=== PATIENT | male | born 1965 | race Caucasian/White ===

== ENCOUNTER → 2019-12-22 15:11 | Outpatient (CLI) | payer OTHER, SELFPAY ==
[2019-12-22 15:28] LABS: Bacteria Urine None Seen
[2019-12-22 16:55] LABS: Add Manual Diff / Slide Review NO; Basophils Absolute Auto 0 /uL (0-100); Basophils Percent Auto 0.2 % (0-2); Eosinophils Absolute Auto 0 /uL (0-450); Eosinophils Percent Auto 0.4 % (2-4); Hemoglobin 15.6 g/dL (13.5-17.5); Lymphocytes Absolute Auto 1000 /uL (1100-4500); Lymphocytes Percent Auto 9.3 % (25-40); Mean Corpuscular HGB Conc 34.7 % (30-36); Mean Corpuscular Hemoglobin 30.5 PG (26-34); Monocytes Absolute Auto 1000 /uL (0-900); Monocytes Percent Auto 9.4 % (3-14); Neutrophils Absolute Auto 8300 /uL (1500-7000); Neutrophils Percent Auto 80.7 % (50-75); Platelet Count 225 X10^3/uL (150-400); Red Blood Cell Count 5.12 X10^6/uL (4.5-5.9); Red Cell Distribution Width 13.3 % (11.6-14.8); White Blood Cell Count 10.3 X10^3/uL (4.5-11.0)
[2019-12-22 16:56] LABS: Appearance Urine UA CLEAR; Bilirubin Urine UA 1+ (NEGATIVE); Color Urine UA YELLOW; Glucose Urine UA NEGATIVE (Negative); Ketones Urine UA 2+ (NEGATIVE); Leukocyte Esterase Urine UA NEGATIVE (NEGATIVE); Nitrite Urine UA NEGATIVE (Negative); Occult Blood Urine UA TRACE-LYSED (Negative); Protein Urine UA NEGATIVE (Negative); Urobilinogen Urine UA 0.2 E.U./dL (0.2); pH Urine UA 5.5 (4.5-8.0)
[2019-12-22 18:20] LABS: Culture Indicated Urine Cult Not Indicated; RBC Urine 0-1/HPF (0-5/HPF); WBC Urine 0-1/HPF (0-5/HPF)
[2019-12-22 18:29] LABS: HEMOLYSIS < 15 (0-50)
[2019-12-22 18:42] LABS: BUN Creatinine Ratio 11.8 (6-22); Blood Urea Nitrogen 18 mg/dL (9-20); Calcium 9.7 mg/dL (8.4-10.2); Carbon Dioxide 27 mmol/L (22-32); Chloride 99 mmol/L (98-107); Estimated Glomerular Filt Rate 47.8 mL/min (>60); Glucose 81 mg/dL (70-100); Sodium 137 mmol/L (137-145)
[2019-12-22 19:48] LABS: Prostate Specific Antigen Scrn 1.99 ng/mL (0.1-4.0)
[2019-12-22 20:16] LABS: Ictotest Urine Negative (Negative)
== END ==
PROVIDERS: Family Provider Family Medicine; PCP Family Medicine; Referring Provider Family Medicine; Visit Provider Family Medicine
DX: R10.9 Unspecified abdominal pain (principal)
CPT/HCPCS: 36415; 80048; 81001; 85025; G0103

== ENCOUNTER → 2019-12-29 16:46 | Outpatient (CLI) | payer OTHER, SELFPAY ==
[2019-12-29 18:34] LABS: BUN Creatinine Ratio 19.8 (6-22); Blood Urea Nitrogen 21 mg/dL (9-20); Calcium 9.1 mg/dL (8.4-10.2); Carbon Dioxide 33 mmol/L (22-32); Chloride 102 mmol/L (98-107); Estimated Glomerular Filt Rate > 60.0 mL/min (>60); Glucose 102 mg/dL (70-100); HEMOLYSIS 15 (0-50); Potassium 4.3 mmol/L (3.4-5.1); Sodium 140 mmol/L (137-145)
== END ==
PROVIDERS: Family Provider Family Medicine; PCP Family Medicine; Referring Provider Family Medicine; Visit Provider Family Medicine
DX: R10.9 Unspecified abdominal pain (principal)
CPT/HCPCS: 36415; 80048

== ENCOUNTER → 2020-12-05 09:56 | Outpatient (CLI) | payer OTHER, SELFPAY ==
[2020-12-05 11:04] LABS: Hemoglobin A1C% w Est Avg Glu 5.1 % (4.0-6.0)
[2020-12-05 11:41] LABS: Alanine Aminotransferase 24 IU/L (<50); Albumin 4.6 g/dL (3.5-5.0); Albumin Globulin Ratio 1.8 (1.0-2.8); Alkaline Phosphatase 49 U/L (38-126); Aspartate Aminotransferase 28 IU/L (17-59); Bilirubin Total 0.4 mg/dL (0.2-1.3); Blood Urea Nitrogen 16 mg/dL (9-20); Calcium 9.4 mg/dL (8.4-10.2); Carbon Dioxide 30 mmol/L (22-32); Chloride 102 mmol/L (98-107); Cholesterol 204 mg/dL (140-199); Estimated Glomerular Filt Rate > 60.0 mL/min (>60); Globulin 2.6 g/dL (1.7-4.1); Glucose 91 mg/dL (70-100); HDL Cholesterol 60 mg/dL (40-60); HEMOLYSIS < 15 (0-50); LDL Cholesterol Calculated 132 mg/dL (<100); Potassium 4.5 mmol/L (3.4-5.1); Sodium 138 mmol/L (137-145); Total Protein 7.2 g/dL (6.3-8.2); Triglycerides 61 mg/dL (35-150)
[2020-12-05 12:07] LABS: TSH w/ Reflex to FT4 2.54 uIU/mL (0.47-4.68)
== END ==
PROVIDERS: Family Provider Family Medicine; PCP Family Medicine; Referring Provider Family Medicine; Visit Provider Family Medicine
DX: Z00.00 Encounter for general adult medical examination without abnormal findings (principal); E78.5 Hyperlipidemia, unspecified; H04.123 Dry eye syndrome of bilateral lacrimal glands; Z12.5 Encounter for screening for malignant neoplasm of prostate
CPT/HCPCS: 36415; 80053; 80061; 83036; 84443; G0103

== ENCOUNTER 2021-06-01 18:04 | Inpatient (IN) | payer OTHER, SELFPAY ==
[2021-06-01] VITALS (13 sets, daily range): BP systolic 124–151; BP diastolic 80–95; PULSE 66–84; RESP 16–35; TEMP 36.7–37; O2SAT 93–99; BMI 25.5
--- NOTE | 2021-06-01 | DI.ECHO.S_ITS ---
[facility] +---------+ : : [address] : : : : [id number] : : : : Phone: [phone]+ Echocardiogram Report + + :Name: ROBERT ROSAS Study Date: 06/02/2021 Height: 70.5 in: :[facility] ReadingLocation: Weight: 183 lb : : Gender: Male BSA: 2.0 m2 : :: 1965 Age: 55 yrs BP: 139/87 mmHg: :Reason For Study: TIA : :Ordering Physician: Alia NEILformed By: Zina Riddle : :Referring: LEYDI NEIL : + + Interpretation Summary Normal both left and right ventricle size and function. The ejection fraction is 60-65%. Mildly dilated left atrium. No valvular abnormality. The ascending aorta is at the upper limits of normal in size. Injection of contrast documented no interatrial shunt. Procedure: A two-dimensional transthoracic echocardiogram with color flow and Doppler was performed. The study quality was technically adequate. Comparison is made with the echocardiogram of 02/22/2017. The patient was in sinus rhythm with heart rates between 68-71 bpm during the exam. Left Ventricle: The left ventricle appears normal in size, wall thickness, and systolic function without any focal wall motion abnormalities. The ejection fraction is estimated to be 60-65%. Right Ventricle: The right ventricle is normal in size and function. Atria: The left atrium is mildly dilated. Right atrial size is normal. There is no Doppler evidence for an interatrial shunt. Injection of contrast documented no interatrial shunt. Mitral Valve: The mitral valve is normal in structure and function. There is trace mitral regurgitation. Aortic Valve: The aortic valve is trileaflet. The aortic valve opens well. There is no aortic valve stenosis. No aortic regurgitation is present. Tricuspid Valve: The tricuspid valve is normal in structure and function. There is mild tricuspid regurgitation. The right ventricular systolic pressure is estimated to be at least 29 mmHg based on an estimated right atrial pressure of 8 mm Hg. Pulmonic Valve: The pulmonic valve leaflets are thin and pliable; valve motion is normal. There is trace pulmonic regurgitation. Great Vessels: The aortic root is moderately dilated. The ascending aorta is at the upper limits of normal in size. The IVC is dilated (diameter is greater than 2.1 cm) yet it collapses greater than 50% with a sniff. This suggests a right atrial pressure of 8 mm Hg. Pericardium/ Pleura There is no pericardial effusion. There is no pleural effusion. MMode/2D Measurements & Calculations LVIDd: 5.9 cm LVOT diam: 2.5 cm LVIDs: 3.8 cm Ao root diam: 4.5 cm FS: 35.1 % asc Aorta Diam: 3.7 cm IVSd: 0.65 cm Ao Arch Diam (Prox Trans): 3.1 cm LVPWd: 0.69 cm LV ortiz. diameter/BSA (cm/m^2): 2.9 LV sys. diameter/BSA (cm/m^2): 1.9 LA A2 area: 22.8 cm2 RA long axis: 5.5 cm LA A4 area: 18.3 cm2 RA area: 17.9 cm2 LA length (vol): 4.8 cm RA vol: 49.0 ml LA vol: 73.4 ml RA : 24.3 ml/m2 LA vol index: 36.4 ml/m2 IVC diam: 2.3 cm RVD1 (basal): 3.9 cm TAPSE: 2.8 cm Doppler Measurements & Calculations Ao V2 max: 128.9 cm/sec LVOT Max Ramone: 117.8 cm/sec Ao V2 mean: 96.3 cm/sec LV V1 max P.5 mmHg Ao max P.6 mmHg LV V1 VTI: 20.9 cm Ao mean P.0 mmHg MICHELLE(I,D): 4.2 cm2 Ao V2 VTI: 24.5 cm MICHELLE(V,D): 4.5 cm2 sev ratio: 0.85 MICHELLE indexed to BSA (cm^2/m^2): 2.1 MV E max ramone: 70.9 cm/sec TR max ramone: 229.5 cm/sec MV A max ramone: 67.9 cm/sec TR max P.1 mmHg MV E/A: 1.0 PA V2 max: 106.5 cm/sec Med Peak E' Ramone: 10.1 cm/sec PA V2 mean: 76.9 cm/sec E/E' med: 7.0 PA mean P.7 mmHg Lat Peak E' Ramone: 12.5 cm/sec PA pr(Accel): 37.9 mmHg E/E' lat: 5.7 E/e' average: 6.3 MV dec time: 0.21 sec SVLVOT): 103.8 ml Electronically signed by: Ninfa Lombardi on Reading Physician:06/02/2021 01:36 PM
--- NOTE | 2021-06-01 18:13 | DI.CT.S_ITS ---
PROCEDURE: CT ANGIO HEAD AND NECK INDICATIONS: right facial droop hx brain cancer and tia.jj TECHNIQUE: After the administration of intravenous contrast, 1 mm thick sections acquired from the aortic arch through the [place]. Post-contrast 4.5 mm thick sections then re-acquired from the foramen magnum to the vertex. 3-dimensional [id number] (MIP) and/or volume rendering reformats were acquired of the central intracranial vasculature and neck separately. COMPARISON: CT, ANGIO HEAD, 02/21/2017, 21:33. [facility], MR, STROKE PROTOCOL, 02/22/2017, 11:33. [facility], CT, CT STROKE, 06/01/2021, 18:20. FINDINGS: Image quality: Excellent. BRAIN: CSF spaces: Ventricles are unchanged in size and morphology with overall mild ventricular dilatation redemonstrated. There is also prominent ex vacuo dilatation the posterior horn of the left lateral ventricle. Basal cisterns are patent. Brain: No intracranial hematoma collections, mass, or mass effect. There are areas of encephalomalacia in the left parietal and temporal lobes likely related to prior surgical changes. There are curvilinear cortical calcifications within the left cerebellar hemisphere redemonstrated with associated indistinct enhancement following contrast administration. The findings appear increased compared to the prior study from 2017. No definite new abnormal intracranial enhancement. Skull and face: Calvarium and facial bones demonstrate no acute fractures. Postsurgical changes are redemonstrated status post left craniotomy and a right posterior parietal santa hole. Sinuses: Sinuses and mastoids are clear. HEAD CT ANGIOGRAPHY: Anterior circulation: Intracranial internal carotid arteries are normal in size and appear patent bilaterally. There is mild atherosclerotic calcification along the cavernous segments of the internal carotid arteries. The paired anterior cerebral arteries appear patent bilaterally. The anterior communicating artery also appears patent. The middle cerebral arteries appear patent bilaterally. No high-grade stenosis, occlusion, or filling defects. No cerebral aneurysms identified. Posterior circulation: Visualized portions of the vertebral arteries demonstrate normal caliber, and join to form a patent basilar artery. The posterior cerebral arteries appears patent bilaterally. No high-grade stenosis, occlusion, or filling defects. No cerebral aneurysms identified. NECK CT ANGIOGRAPHY: Carotid system: The great vessels demonstrate a conventional anatomy as they arise from the aortic arch. The origins of the common carotid arteries appear patent. The common carotid arteries demonstrate normal caliber and courses. The bifurcation regions are both widely patent. The internal carotid arteries demonstrate normal calibers and courses. Posterior circulation: The origins of the vertebral arteries both appear patent. The more superior extracranial portions of both vertebral arteries also demonstrate normal courses and calibers. They join to form a patent basilar artery. Soft tissues: Visualized neck soft tissues demonstrate no suspicious abnormalities. Bones: No suspicious bony lesions. Visualized cervical spine appears normally aligned. IMPRESSION: 1. No high-grade stenosis or occlusion of the central intracranial arteries. 2. No high-grade stenosis or occlusion of the head and neck arteries. 3. Curvilinear cortical calcifications in the left cerebellar hemisphere with associated indistinct enhancement appear increased over time compared to the prior studies. Findings are nonspecific and the differential includes a vascular malformation or posttreatment changes. A neoplastic process is not fully excluded but considered less likely. Further evaluation may be obtained with a contrast enhanced MRI. 4. Extensive postsurgical changes redemonstrated centered in the left parietal lobe with associated cortical encephalomalacia as well as ex vacuo dilatation of the posterior horn of the left lateral ventricle. Any quantitative measurements of stenosis were performed using NASCET criteria. Dictated by: Andrea Kamara M.D. on 06/01/2021 at 21:02 Approved by: Andrea Kamara M.D. on 06/01/2021 at 21:14
--- NOTE | 2021-06-01 18:13 | DI.CT.S_ITS ---
PROCEDURE: CT STROKE INDICATIONS: right facial droop hx brain cancer and tia TECHNIQUE: Noncontrast 4.5 mm thick angled axial sections acquired from the foramen magnum to the vertex, with coronal reformats. For radiation dose reduction, the following was used: automated exposure control, adjustment of mA and/or kV according to patient size. COMPARISON: None. FINDINGS: Image quality: Excellent. CSF spaces: Basal cisterns are patent. No extra-axial fluid collections. Ventricles are normal in size and shape. Brain: Since the prior study there has been progressive cortical calcification in the left cerebellar hemisphere. There is chronic small foci of calcification along the anterior margin of the left temporal lobe resection bed. Punctate basal ganglia calcifications bilaterally. No acute hemorrhage, mass effect, or midline shift. There are chronic stable changes of left temporoparietal resection, asymmetric enlargement of the left lateral ventricle, and overlying left parietal lobe cortical volume loss. No acute changes to the pitts-white matter interface. Skull and face: Left temporoparietal craniotomy change. Small right parietal santa hole present. No acute fractures. Facial bones are intact. Sinuses: Visualized sinuses and mastoids are clear. IMPRESSION: 1. No CT evidence of acute intracranial process. 2. There is progressive linear cortical calcification in the left cerebellar hemisphere without evidence of mass effect or adjacent edema. 3. Stable changes of left parietal mass resection with adjacent ex vacuo dilatation of the lateral ventricle and overlying infarct. 4. Craniotomy and santa hole changes. 5. Discussed with Dr. Elizabeth Patterson in the emergency room at 18:36 hours. This study fulfills neurological imaging criteria for inclusion or exclusion of acute stroke therapies based on available published neurological imaging guidelines. Dictated by: Rachel Gonzales M.D. on 06/01/2021 at 18:31 Approved by: Rachel Gonzales M.D. on 06/01/2021 at 18:41
--- NOTE | 2021-06-01 18:16 | ED_ITS ---
HPI - Neuro Symptoms/Deficit General Chief Complaint: Neuro Symptoms/Deficit Stated Complaint: Possible Stroke/HX Brain Cancer Time Seen by Provider: 06/01/21 18:12 Source: patient and family Mode of arrival: Wheelchair History of Present Illness HPI Narrative: Patient is a 55-year-old male with history of brain cancer, TIA presenting today with right-sided facial droop. He apparently does drop things on a regular basis. Previously when he had a TIA in 2017 he had right facial droop at that time. states that he was normal at 345 when she left patient reports that he was normal until about 5:00 p.m.. Daughter heard him dropping things very frequently in the garage at that time. She when out to see what was happening noticed that he had some right facial droop. Is not abnormal for him to drop things however it is abnormal from to drop them multiple times in a row. He did not have any extremity weakness. He does have a history of avascular necrosis and a left hip replacement from the chemotherapy. So he does have a little left leg weakness. also states that she noted some slurring in his speech as well. But he has a no x4. He is able to stand up on the gurney and transfer. Does not drive based on history. asa prior to arrival On Anticoagulants: No Related Data Home Medications Medication Instructions Recorded Confirmed No Known Home Medications 06/02/21 06/02/21 Allergies Allergy/AdvReac Type Severity Reaction Status Date / Time No Known Drug Allergies Allergy Verified 12/04/20 14:31 Review of Systems Review of Systems Narrative: GENERAL: Denies chills, fatigue, malaise, fever, sweats, travel HEENT: Denies sinus pain, ear pain, sore throat, difficulty swallowing, neck pain RESPIRATORY: Denies dyspnea, cough, wheezing, hemoptysis, sputum. CARDIOVASCULAR: Denies chest pain, palpitations, orthopnea, edema GASTROINTESTINAL: Denies nausea, vomiting, abdominal pain, diarrhea, constipation, melena. : Denies dysuria, frequency, incontinence, hematuria, urinary retention, flank pain. MUSCULOSKELETAL: Denies weakness, joint pain, or bony pain SKIN: No rash, no erythema, no pruritus NEUROLOGIC: See HPI PSYCHIATRIC: No concerning psychosocial issues. 12 point review of systems is negative except for those stated above and HPI Hematologic/Lymphatic On Anticoagulants: No Patient History Medical History Chronic dryness of both eyes CVA (cerebral vascular accident) Ependymoma Hemorrhagic cerebrovascular accident (CVA) Hyperlipidemia Intracranial tumor (07/04/14) Kidney stone Laceration of right thumb Osteonecrosis Transient cerebral ischemia (03/10/17) Surgical History Status post laminectomy Family History Brother Age: 35 Mental health problem Father Age: 79 Seizure Stroke Social History household members: spouse and children Smoking Status: Never smoker alcohol intake: never Smoking Status: Never smoker Exam Initial Vital Signs Initial Vital Signs: Vital Signs Pulse Rate 81 06/01/21 18:08 GENERAL: He 5-year-old male mild right facial droop in no acute distress. HEENT: Head atraumatic,EOMI, pupils reactive, face symmetric, moist mucous membranes CARDIOVASCULAR: Regular rate and rhythm without murmurs, rubs or gallops. RESPIRATORY: Breath sounds equal bilaterally, no wheezes rales or rhonchi. ABDOMEN: Soft, nontender. Normoactive bowel sounds all 4 quadrants. No guarding or rebound. EXTREMITIES: Normal range of motion, no clubbing or edema. Neurovascularly intact NEUROLOGICAL: Alert and oriented x4.Normal gait and speech. Cranial nerves II through XII grossly intact. Good [id number]-[id number], good fvdj-[id number], strength equal bilaterally, with mild dysarthria, sensation in tact to soft touch bilaterally, no visual changes, right facial droop he is able to wrinkle forehead and close eyes tightly coli. SKIN: Warm, dry, no laceration, no petechiae, no rashes or lesions. Scores NIH Stroke Scale Level of Conciousness: Alert, keenly responsive Ask month/age: Answers both questions correctly. Open/close eyes, close hand: Performs both tasks correctly Best gaze horizontal: Normal Visual terry: No visual loss (at baseline, some visula loss from prior brain cancer/surgery) Facial palsy: Minor paralysis, flattened nasolabial fold, asymmetry on smiling Left arm drift: No drift for full 10 sec Right arm drift: No drift for full 10 sec Left leg drift: No drift for full 5 sec Right leg drift: No drift for full 5 sec Limb ataxia: Absent Sensory on face/arms/legs: Normal, no sensory loss Best language: Mild to moderate, slurs some words Dysarthria: Normal Extinction or inattention: No abnormality Total NIH Stroke scale score: 2 Course Orders Ordered: ED Orders 06/01/21 18:26 EKG-12 Lead Stat 06/01/21 18:50 Urine Drug Screen, Rapid Stat Acetaminophen (Acetaminophen 325 Mg Tablet) 650 mg PO Q6HR [facility] Last Admin: 06/01/21 23:03 Dose: 650 mg Documented by: GARTH Aspirin (Aspirin Ec 81 Mg Tablet) 81 mg PO DAILY [facility] Atorvastatin Calcium (Atorvastatin 20 Mg Tablet) 80 mg PO BEDTIME [facility] Clopidogrel Bisulfate (Clopidogrel 75 Mg Tablet) 75 mg PO DAILY [facility] Enoxaparin Sodium (Enoxaparin 40 Mg/0.4 Ml Syringe) 40 mg SUBCUT DAILY [facility] Naloxone HCl (Naloxone 0.4 Mg/Ml Vial) 0.2 mg IV Q2MIN PRN PRN Reason: Opiate Reversal Ondansetron HCl (Ondansetron 4 Mg/2 Ml Inj) 4 mg IV Q6HR PRN PRN Reason: Nausea And Vomiting Tramadol HCl (Tramadol 50 Mg Tablet) 50 mg PO Q4H PRN PRN Reason: Pain, Moderate (4-6) Last Admin: 06/01/21 23:02 Dose: 50 mg Documented by: GARTH Vital Signs Vital signs: Vital Signs - 8 hr 06/01/21 19:20 06/01/21 19:30 06/01/21 19:55 Pulse Rate 83 83 69 Respiratory Rate 35 H 24 16 Blood Pressure 141/81 H 143/80 H Pulse Oximetry 96 97 98 06/01/21 20:08 06/01/21 20:30 06/01/21 21:00 Pulse Rate 81 81 73 Respiratory Rate 24 30 H 26 H Blood Pressure Pulse Oximetry 93 99 06/01/21 21:11 Pulse Rate 73 Respiratory Rate 25 H Blood Pressure 135/88 Pulse Oximetry 99 MDM - Neuro Symptoms/Deficit Lab Data Result diagrams: 06/01/21 17:15 06/01/21 17:15 Labs: Lab Results 06/01/21 06/01/21 06/01/21 Range/Units 17:15 17:15 17:15 WBC 6.7 (4.5-11.0) X10^3/uL RBC 4.91 (4.5-5.9) X10^6/uL Hgb 14.7 (13.5-17.5) g/dL Hct 42.8 (41-53) % MCV 87.2 (80-100) fL MCH 29.9 (26-34) PG MCHC 34.3 (30-36) % RDW 13.6 (11.6-14.8) % Plt Count 233 (150-400) X10^3/uL Neut % (Auto) 70.4 (50-75) % Lymph % (Auto) 19.8 L (25-40) % [place] % (Auto) 7.7 (3-14) % Eos % (Auto) 1.3 L (2-4) % Baso % (Auto) 0.8 (0-2) % Neut # (Auto) 4700 (7312-1767) /uL Lymph # (Auto) 1300 (8914-4259) /uL [place] # (Auto) 500 (0-900) /uL Eos # (Auto) 100 (0-450) /uL Baso # (Auto) 100 (0-100) /uL PT 11.7 (10.1-12.7) SECONDS INR 1.0 (0.9-1.3) APTT 31 (26.4-36.2) SECONDS Sodium 134 L (137-145) mmol/L Potassium 3.8 (3.4-5.1) mmol/L Chloride 99 (98-107) mmol/L Carbon Dioxide 24 (22-32) mmol/L BUN 22 H (9-20) mg/dL Creatinine 0.98 (0.66-1.25) mg/dL Estimated GFR > 60.0 (>60) mL/min BUN/Creatinine Ratio 22.4 H (6-22) Glucose 95 (70-100) mg/dL Hemoglobin A1c (4.0-6.0) % Calcium 9.2 (8.4-10.2) mg/dL Total Bilirubin 0.6 (0.2-1.3) mg/dL AST 33 (17-59) IU/L ALT 22 (<50) IU/L Alkaline Phosphatase 64 (38-126) U/L Total Creatine Kinase 154 (55-170) U/L CK-MB (CK-2) 2.41 H (<2.37) ng/mL CK-MB (CK-2) Rel Index 1.6 (1.5-5.0) % Troponin I < 0.012 (0.01-0.034) ng/mL Total Protein 8.2 (6.3-8.2) g/dL Albumin 4.9 (3.5-5.0) g/dL Globulin 3.3 (1.7-4.1) g/dL Albumin/Globulin Ratio 1.5 (1.0-2.8) Urine RBC (0-5/HPF) Urine WBC (0-5/HPF) Ur Squamous Epith Cells (0-5/HPF) Urine Bacteria (None) Ur Culture Indicated? U Opiates 300ng/mL cut (Negative) Ur Oxycodone Screen (Negative) Urine Methadone Screen (Negative) Ur Barbiturates Screen (Negative) U Tricyclic Antidepress (Negative) Ur Phencyclidine Scrn (Negative) Ur Amphetamines Screen (Negative) U Methamphetamines Scrn (Negative) Ur MDMA Scrn (Ecstasy) (Negative) U Benzodiazepines Scrn (Negative) Urine Cocaine Screen (Negative) U Marijuana (THC) Screen (Negative) Ethyl Alcohol < 10 ( - 10) mg/dL 06/01/21 06/01/21 06/01/21 Range/Units 17:15 17:50 18:50 WBC (4.5-11.0) X10^3/uL RBC (4.5-5.9) X10^6/uL Hgb (13.5-17.5) g/dL Hct (41-53) % MCV (80-100) fL MCH (26-34) PG MCHC (30-36) % RDW (11.6-14.8) % Plt Count (150-400) X10^3/uL Neut % (Auto) (50-75) % Lymph % (Auto) (25-40) % [place] % (Auto) (3-14) % Eos % (Auto) (2-4) % Baso % (Auto) (0-2) % Neut # (Auto) (6875-6466) /uL Lymph # (Auto) (3924-0255) /uL [place] # (Auto) (0-900) /uL Eos # (Auto) (0-450) /uL Baso # (Auto) (0-100) /uL PT (10.1-12.7) SECONDS INR (0.9-1.3) APTT (26.4-36.2) SECONDS Sodium (137-145) mmol/L Potassium (3.4-5.1) mmol/L Chloride (98-107) mmol/L Carbon Dioxide (22-32) mmol/L BUN (9-20) mg/dL Creatinine (0.66-1.25) mg/dL Estimated GFR (>60) mL/min BUN/Creatinine Ratio (6-22) Glucose (70-100) mg/dL Hemoglobin A1c 5.2 (4.0-6.0) % Calcium (8.4-10.2) mg/dL Total Bilirubin (0.2-1.3) mg/dL AST (17-59) IU/L ALT (<50) IU/L Alkaline Phosphatase (38-126) U/L Total Creatine Kinase (55-170) U/L CK-MB (CK-2) (<2.37) ng/mL CK-MB (CK-2) Rel Index (1.5-5.0) % Troponin I (0.01-0.034) ng/mL Total Protein (6.3-8.2) g/dL Albumin (3.5-5.0) g/dL Globulin (1.7-4.1) g/dL Albumin/Globulin Ratio (1.0-2.8) Urine RBC None seen (0-5/HPF) Urine WBC 0-1/hpf (0-5/HPF) Ur Squamous Epith Cells 0-1 /hpf (0-5/HPF) Urine Bacteria None seen (None) Ur Culture Indicated? Cult not indicated U Opiates 300ng/mL cut Negative (Negative) Ur Oxycodone Screen Negative (Negative) Urine Methadone Screen Negative (Negative) Ur Barbiturates Screen Negative (Negative) U Tricyclic Antidepress Negative (Negative) Ur Phencyclidine Scrn Negative (Negative) Ur Amphetamines Screen Negative (Negative) U Methamphetamines Scrn Negative (Negative) Ur MDMA Scrn (Ecstasy) Negative (Negative) U Benzodiazepines Scrn Negative (Negative) Urine Cocaine Screen Negative (Negative) U Marijuana (THC) Screen Negative (Negative) Ethyl Alcohol ( - 10) mg/dL Point of Care Testing Glucose POC 93 Urine Dip Bedside Urine Glucose Negative Bedside Urine Bilirubin - Negative Bedside Urine Ketone +++ 80 Urine Specific [place] 1.025 Bedside Urine Occult Blood - Negative Bedside Urine pH 6 Bedside Urine Protein - Negative Bedside Urine Urobilinogen - Negative Bedside Urine Nitrite - Negative Bedside Urine Leukocytes - Negative Esterase Imaging Data CT scan - head: Radiologist's Impression: PROCEDURE:? CT STROKE ? INDICATIONS:? right facial droop hx brain cancer and tia ? TECHNIQUE:? Noncontrast 4.5 mm thick angled axial sections acquired from the foramen magnum to the vertex, with coronal reformats.? For radiation dose reduction, the following was used:? automated exposure control, adjustment of mA and/or kV according to patient size.? ? COMPARISON:? None. ? FINDINGS:? Image quality:? Excellent.? ? CSF spaces:? Basal cisterns are patent.? No extra-axial fluid collections.? Ventricles are normal in size and shape.? ? Brain:? Since the prior study there has been progressive cortical calcification in the left cerebellar hemisphere.? There is chronic small foci of calcification along the anterior margin of the left temporal lobe resection bed.? Punctate basal ganglia calcifications bilaterally.? No acute hemorrhage, mass effect, or midline shift. ? There are chronic stable changes of left temporoparietal resection, asymmetric enlargement of the left lateral ventricle, and overlying left parietal lobe cortical volume loss.? No acute changes to the pitts-white matter interface. ? Skull and face:? Left temporoparietal craniotomy change.? Small right parietal santa hole present.? No acute fractures.? Facial bones are intact. ? Sinuses:? Visualized sinuses and mastoids are clear.? ? IMPRESSION:? ? 1. No CT evidence of acute intracranial process.? ? 2. There is progressive linear cortical calcification in the left cerebellar hemisphere without evidence of mass effect or adjacent edema. ? 3. Stable changes of left parietal mass resection with adjacent ex vacuo dilatation of the lateral ventricle and overlying infarct. ? 4. Craniotomy and santa hole changes. ? 5. Discussed with Dr. Elizabeth Patterson in the emergency room at 18:36 hours.? ? This study fulfills neurological imaging criteria for inclusion or exclusion of acute stroke therapies based on available published neurological imaging guidelines.? ? ? Dictated by: Rachel Gonzales M.D. on 06/01/2021 at 18:31 ? ? Approved by: Rachel Gonzales M.D. on 06/01/2021 at 18:41 ? CT angio: Radiologist's Impression: PROCEDURE:? CT ANGIO HEAD AND NECK ? INDICATIONS:? right facial droop hx brain cancer and tia.jjj ? TECHNIQUE:? After the administration of intravenous contrast, 1 mm thick sections acquired from the aortic arch through the [place].? Post-contrast 4.5 mm thick sections then re-acquired from the foramen magnum to the vertex.? 3-dimensional qdvxbdi-laxxnpffq-rvnstelsvy (MIP) and/or volume rendering reformats were acquired of the central intracranial vasculature and neck separately. ? COMPARISON:? CT, ANGIO HEAD, 02/21/2017, 21:33.? [facility], MR, STROKE PROTOCOL, 02/22/2017, 11:33.? [facility], CT, CT STROKE, 06/01/2021, 18:20. ? FINDINGS:? Image quality:? Excellent.? ? BRAIN:? CSF spaces:? Ventricles are unchanged in size and morphology with overall mild ventricular dilatation redemonstrated.? There is also prominent ex vacuo dilatation the posterior horn of the left lateral ventricle.? Basal cisterns are patent.? ? Brain:? No intracranial hematoma collections, mass, or mass effect.? There are areas of encephalomalacia in the left parietal and temporal lobes likely related to prior surgical changes.? There are curvilinear cortical calcifications within the left cerebellar hemisphere redemonstrated with associated indistinct enhancement following contrast administration.? The findings appear increased compared to the prior study from 2017.? No definite new abnormal intracranial enhancement. ? Skull and face:? Calvarium and facial bones demonstrate no acute fractures.? Postsurgical changes are redemonstrated status post left craniotomy and a right posterior parietal santa hole. ? Sinuses:? Sinuses and mastoids are clear.? ? HEAD CT ANGIOGRAPHY:? Anterior circulation:? Intracranial internal carotid arteries are normal in size and appear patent bilaterally.? There is mild atherosclerotic calcification along the cavernous segments of the internal carotid arteries.? The paired anterior cerebral arteries appear patent bilaterally.? The anterior communicating artery also appears patent. The middle cerebral arteries appear patent bilaterally.? No high-grade stenosis, occlusion, or filling defects.? No cerebral aneurysms identified. ? Posterior circulation:? Visualized portions of the vertebral arteries de monstrate normal caliber, and join to form a patent basilar artery.? The posterior cerebral arteries appears patent bilaterally.? No high-grade stenosis, occlusion, or filling defects.? No cerebral aneurysms identified. ? NECK CT ANGIOGRAPHY:? Carotid system:? The great vessels demonstrate a conventional anatomy as they arise from the aortic arch.? The origins of the common carotid arteries appear patent.? The common carotid arteries demonstrate normal caliber and courses.? The bifurcation regio ns are both widely patent.? The internal carotid arteries demonstrate normal calibers and courses.? ? Posterior circulation:? The origins of the vertebral arteries both appear patent.? The more superior extracranial portions of both vertebral arteries also demonstrate normal courses and calibers.? They join to form a patent basilar artery.? ? Soft tissues:? Visualized neck soft tissues demonstrate no suspicious abnormalities.? ? Bones:? No suspicious bony lesions.? Visualized cervical spine appears normally aligned.? ? ? IMPRESSION:? ? 1. No high-grade stenosis or occlusion of the central intracranial arteries. ? 2. No high-grade stenosis or occlusion of the head and neck arteries. ? 3. Curvilinear cortical calcifications in the left cerebellar hemisphere with associated indistinct enhancement appear increased over time compared to the prior studies.? Findings are nonspecific and the differential includes a vascular malformation or posttreatment changes.? A neoplastic process is not fully excluded but considered less likely.? Further evaluation may be obtained with a contrast enhanced MRI. ? 4. Extensive postsurgical changes redemonstrated centered in the left parietal lobe with associated cortical encephalomalacia as well as ex vacuo dilatation of the posterior horn of the left lateral ventricle. ? Any quantitative measurements of stenosis were performed using NASCET criteria.? ? ? Dictated by: Andrea Kamara M.D. on 06/01/2021 at 21:02 ? ? Approved by: Andrea Kamara M.D. on 06/01/2021 at 21:14 ? ECG Data Interpretation: Normal sinus rhythm with frequent PVCs rate 84 LA interval 172 QRS [address] changes MDM Narrative Medical decision making narrative: The patient presented with facial droop and some slurring of speech low NIH score of 2. Initial noncontrast head CT was initially read by me. There was questionable calcification versus blew help off CT angio until official radiology read which was negative. Stated it is chronic stable appearing. Code stroke team was activated Dr. Moreau, was notified and updated patient's symptoms and test results. He did his evaluate patient and talk with patient and himself. About tPA. His was against tPA patient wanted possibly despite minimal disability. Upon my re-evaluations patient's speech had actually improved. His which is a contraindication for tPA. 2010Patient was continue to be monitored in the emergency department he continues to have right facial droop. I was called and to assess patient again. states that his speech got worse again now she is reconsidering tPA. The patient does have some mild slurring similar to what he did previously. Repeat [place] and she continues to have an NIH stroke score of 2 which continues to be extremely low disability. At this time patient not a candidate for tPA. He took aspirin prior to his arrival. They both have been explained multiple times indications and contraindications to tPA. At this point patient continues to have mild disability CT angio does not show any large vessel occlusion or just patient's signs or symptoms of large vessel occlusion. Not a candidate for thrombectomy . Patient is admitted to hospitalist KAILYN Spangler Discharge Plan Departure Patient Disposition: Admitted As Inpatient Clinical Impression: Cerebrovascular accident Admit Date/Time: 06/01/21 21:11 Admit Provider: Marcie Denton
[2021-06-01 18:29] LABS: Add Manual Diff / Slide Review NO; Basophils Absolute Auto 100 /uL (0-100); Basophils Percent Auto 0.8 % (0-2); Eosinophils Absolute Auto 100 /uL (0-450); Eosinophils Percent Auto 1.3 % (2-4); Hematocrit 42.8 % (41-53); Hemoglobin 14.7 g/dL (13.5-17.5); Lymphocytes Absolute Auto 1300 /uL (1100-4500); Lymphocytes Percent Auto 19.8 % (25-40); Mean Corpuscular HGB Conc 34.3 % (30-36); Mean Corpuscular Hemoglobin 29.9 PG (26-34); Mean Corpuscular Volume 87.2 fL (80-100); Monocytes Absolute Auto 500 /uL (0-900); Monocytes Percent Auto 7.7 % (3-14); Neutrophils Absolute Auto 4700 /uL (1500-7000); Neutrophils Percent Auto 70.4 % (50-75); Platelet Count 233 X10^3/uL (150-400); Red Blood Cell Count 4.91 X10^6/uL (4.5-5.9); Red Cell Distribution Width 13.6 % (11.6-14.8); White Blood Cell Count 6.7 X10^3/uL (4.5-11.0)
--- NOTE | 2021-06-01 18:35 | PC.NURSE ---
Pt arrived with . LKW per pt 1715 with slurring of speech and R sided facial droop. h/o brain CA in 2008 with craniotomy and in remission and h/o TIA's with a L sided foot drop as a known deficit. states she heard pt dropping things in the garage which is not abnormal behavior for him post Brain CA however the facial droop and slurring is new. NIH 2. 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 AAOx3 and transferred to CT table by himself. BS 93. BP 124/89. HR 80. IV placed and labs drawn. Attached to cardiac monitoring. Awaiting further orders.
[2021-06-01 18:36] LABS: Prothrombin Time 11.7 SECONDS (10.1-12.7)
[2021-06-01 18:39] LABS: PTT Partial Thromboplastin Tim 31 SECONDS (26.4-36.2)
[2021-06-01 18:43] LABS: Alanine Aminotransferase 22 IU/L (<50); Albumin 4.9 g/dL (3.5-5.0); Albumin Globulin Ratio 1.5 (1.0-2.8); Alkaline Phosphatase 64 U/L (38-126); Aspartate Aminotransferase 33 IU/L (17-59); BUN Creatinine Ratio 22.4 (6-22); Bilirubin Total 0.6 mg/dL (0.2-1.3); Blood Urea Nitrogen 22 mg/dL (9-20); Calcium 9.2 mg/dL (8.4-10.2); Carbon Dioxide 24 mmol/L (22-32); Chloride 99 mmol/L (98-107); Creatine Kinase 154 U/L (55-170); Estimated Glomerular Filt Rate > 60.0 mL/min (>60); Ethanol (ETOH) < 10 mg/dL; Globulin 3.3 g/dL (1.7-4.1); Glucose 95 mg/dL (70-100); HEMOLYSIS 23 (0-50); Potassium 3.8 mmol/L (3.4-5.1); Sodium 134 mmol/L (137-145); Total Protein 8.2 g/dL (6.3-8.2)
[2021-06-01 18:54] LABS: Troponin I < 0.012 ng/mL (0.01-0.034)
[2021-06-01 18:57] LABS: CKMB % Relative Index 1.6 % (1.5-5.0); Creatine Kinase MB 2.41 ng/mL (<2.37)
[2021-06-01 19:01] LABS: Bacteria Urine None Seen; Culture Indicated Urine Cult Not Indicated; RBC Urine None Seen (0-5/HPF); Squamous Epithelial Cell Urine 0-1 /HPF (0-5/HPF); WBC Urine 0-1/HPF (0-5/HPF)
[2021-06-01 19:03] LABS: UR Morphine/Opiate cutoff 300 Negative (Negative); Ur Creatinine Normal (Normal); Ur Specific Gravity Normal (Normal); Urine Amphetamines Negative (Negative); Urine Barbiturates Negative (Negative); Urine Benzodiazepines Negative (Negative); Urine Cocaine Negative (Negative); Urine MDMA Negative (Negative); Urine Methadone Negative (Negative); Urine Methamphetamines Negative (Negative); Urine Oxycodone Negative (Negative); Urine Phencyclidine Negative (Negative); Urine Tetrahydrocannabinol Negative (Negative); Urine Tricyclic Antidepressant Negative (Negative); Urine pH Normal (Normal)
--- NOTE | 2021-06-01 19:32 | PC.NURSE ---
After assessment by Telestroke, Dr Soto and after speaking with Dr Patterson, pt is declining tPa administration. plan to admit to Obs and obtain further testing. Pt has metal plate in L side of head and MRI contraindicated, however pt states he has had MRI's in the past. Will have to obtain records to follow up. CT made aware of CT angio at this time.
[2021-06-01 21:41] LABS: COVID19 -Nasal RAPID Negative (Negative)
[2021-06-01] MEDS: TRAMADOL 50 MG TABLET PO (23:02)
[2021-06-01] MEDS: ACETAMINOPHEN 325 MG TABLET 650 MG PO (23:03)
[2021-06-01 23:11] LABS: Hemoglobin A1C% w Est Avg Glu 5.2 % (4.0-6.0)
[2021-06-02] VITALS (10 sets, daily range): BP systolic 124–152; BP diastolic 71–85; PULSE 71–85; RESP 16–18; TEMP 36.8–38.3; O2SAT 94–99
--- NOTE | 2021-06-02 | DI.MRI.S_ITS ---
PROCEDURE: MR STROKE Pre- and post-contrast brain MRI, non-contrast brain MR angiogram, pre- and postcontrast neck MR angiogram INDICATIONS: Hx CVA, brain bleed 2007, now TIA TECHNIQUE: Brain: Noncontrast axial T1 spin echo, axial T2 fast spin echo, sagittal and axial FLAIR, coronal T2 fast spin echo, axial gradient echo, axial diffusion and ADC through the brain. After the administration of contrast, axial 3D VIBE of the cranial vasculature and brain. Brain MRA: Non-contrast 3-D time of flight MR angiogram, with multiple meiztdl-lzxfeyyju-amxmlrwpbw (MIP) reformats performed. Neck MRA: Axial and sagittal TruFISP through the neck. Coronal dynamic MR angiogram during administration of contrast in the arterial and venous phases, with 3-dimenstional rkpeaic-hiadruyhe-ewmrnpzkfd (MIP) reformats constructed from subtraction images. COMPARISON: [facility], MR, BRAIN WITHOUT CONTRAST, 07/10/2014, 20:17. [facility], MR, BRAIN WITH CONTRAST, 07/27/2014, 16:12. [facility], CT, CT ANGIO HEAD AND NECK, 06/01/2021, 19:52. [facility], MR, STROKE PROTOCOL, 02/22/2017, 11:33. [facility], CT, CT STROKE, 06/01/2021, 18:20. FINDINGS: Image quality: Excellent. BRAIN: CSF spaces: Ventricles are stable, with ex vacuo dilatation posterior aspect the left lateral ventricle. Basal cisterns are patent. No extra-axial fluid collections. Brain: In this patient with this given history, scrutiny is given to the left cerebellum at the site of the dense calcification seen by CT. At this site, a mild degree susceptibility artifact can be seen, yet without mass or abnormal enhancement. Left posterior cerebral hemisphere resection changes are again seen, with volume loss and encephalomalacia, which is centered within the left parietal region. No abnormal enhancement can be seen within this region. No intracranial bleeds or mass effects. Walter-white matter interface is normal. Diffusion weighted images show no acute ischemic insults. Brainstem appears normal. Normal intravascular flow voids are present. No abnormal intracranial enhancement. Skull and face: Left posterior craniotomy changes are seen. Calvarial marrow signal is normal. Orbits appear normal. Sinuses: Sinuses and mastoids are clear. BRAIN MR ANGIOGRAM: Anterior circulation: Intracranial internal carotid arteries are normal in size and enhancement. The flow within the paired anterior cerebral arteries is normal and symmetric. The flow within the middle cerebral arteries is normal and symmetric. The anterior communicating artery is seen. No stenoses, occlusions, or aneurysms. Posterior circulation: The visualized portions of the vertebral arteries demonstrate normal caliber, and join to form a normal appearing basilar artery. The flow within the posterior cerebral arteries is normal and symmetric. No stenoses, occlusions, or aneurysms. NECK MR ANGIOGRAM: Carotids: Great vessels demonstrate a conventional anatomy as they arise from the aortic arch. The origins of the common carotid arteries appear patent. The calibers and courses of both common carotid arteries are normal. The bifurcation regions appear normal bilaterally. The internal carotid arteries demonstrate normal course and caliber. Posterior circulation: The origins of the vertebral arteries appear patent. More superior portions of both vertebral arteries demonstrate normal course and caliber, and join to form a normal appearing basilar artery. Miscellaneous: Subclavian arteries appear patent. Pre-contrast images through the neck show no soft tissue abnormalities. IMPRESSION: BRAIN MRI: No findings of acute or subacute infarction can be seen. No mass can be seen within the left cerebellum where there is dense calcification seen on CT. Stable left cerebral hemisphere resection changes, without abnormal enhancement within this region. BRAIN MR ANGIOGRAM: No significant intracranial arterial abnormality is seen. NECK MR ANGIOGRAM: Within the arteries of the neck, no hemodynamically significant stenosis can be seen. Dictated by: Surinder Curry M.D. on 06/02/2021 at 8:07 Approved by: Surinder Curry M.D. on 06/02/2021 at 8:14
--- NOTE | 2021-06-02 00:39 | P.HP_ITS ---
History of Present Illness History of Present Illness Date Patient Seen: 06/01/21 Time Patient Seen: 22:00 Chief complaint: Possible Stroke/HX Brain Cancer Narrative: Pardeep Ziegler is a pleasant 55 y.o. male with a history of an ependymoma diagnosed in 2008, had a subsequent hemorrhagic bleed as a result of surgery, TIA in 2006, history of kidney stones, laminectomy, chronic dry eye in a left hip replacement as a result of avascular necrosis due to the chemotherapy underwent for the epenymona, presented to the emergency room with facial droop and slurring and dropping objects more often than usual. Patient has residual deficits primarily occasionally dropping items. He began to drop items more frequently over the past day or so and the patient was last seen normal at 15 30 on 06/01/2021. He had waxing and waning of his speech improving and then det eriorating improving and then deteriorating again. It was difficult to appreciate the actual onset of when this started he and his presented to the emergency department he was outside the window for tPA. He also took a low- dose aspirin when the symptoms started. He does deny headache, fever sweats or chills, chest pain, shortness of breath, abdominal pain, dysuria, diarrhea constipation, numbing or tingling of his upper or lower extremities. Brain CT indicated progressive cortical calcification in the left cerebellar hemisphere with a small focus of calcification along the anterior margin of the left temporal lobe resection bed. It did not identify any acute hemorrhage. And also noted chronic stable changes of the left temporoparietal resection, I same metric enlargement of the left lateral ventricle an overlying left parietal lobe cortical volume loss. He also has a small right parietal santa hole present. It also noted ?areas of encephalomalacia in the left parietal and t emporal lobes likely related to prior surgical changes... Curvilinear cortical calcifications within the left cerebellar hemisphere redemonstrated with associated indistinct enhancement following contrast administration. These were increased prior to the previous study of 2017. In the conclusions it did not fully exclude a neoplastic process but was considered to be less likely and recommended a contrast-enhanced MRI. Patient's presenting blood pressure was 151/95 and is relatively unchanged, he is afebrile, heart rate is 76, respiratory rate 16, oxygen saturation of 96% on room air, he weighs 82 kg with a BMI of 25.5. CBC is unremarkable, sodium 134, chemistries otherwise are unremarkable, urinalysis is negative for UTI as well as urine toxicology and COVID-19 PCR is negative. Patient History Medical History Chronic dryness of both eyes CVA (cerebral vascular accident) 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) Hyperlipidemia Intracranial tumor (07/04/14) Kidney stone Laceration of right thumb Osteonecrosis Transient cerebral ischemia (03/10/17) Surgical History History of craniotomy Status post laminectomy Family & Social History Family History Brother Age: 35 Mental health problem Father Age: 79 Seizure Stroke Social History: household members spouse,children Prior Living Arrangements House Safety & Behavioral: Feels Safe in Current Yes Environment Been Physically Hurt or No Threatened By a Person Suicidal Ideation Description None Suicide Plan Description No Plan Tobacco & Substance use: Smoking Status Never smoker alcohol intake never Substance Use Type does not use Meds Home Medications and Allergies Home Medications Medication Instructions Recorded Confirmed Type No Known Home Medications 06/02/21 06/02/21 History Allergies Allergy/AdvReac Type Severity Reaction Status Date / Time No Known Drug Allergies Allergy Verified 12/04/20 14:31 Review of Systems Review of Systems ROS: Yes All systems reviewed with the patient and are negative except as otherwise documented Exam Vital Signs (past 8 hours): - 06/01/21 18:08 06/01/21 18:09 06/01/21 18:30 Temperature 98.0 F Pulse Rate 81 84 77 Respiratory Rate 22 23 Blood Pressure 151/95 H 124/89 Pulse Oximetry 98 99 06/01/21 19:00 06/01/21 19:20 06/01/21 19:30 Temperature Pulse Rate 84 83 83 Respiratory Rate 34 H 35 H 24 Blood Pressure 141/81 H 143/80 H Pulse Oximetry 97 96 97 06/01/21 20:08 06/01/21 20:30 06/01/21 21:00 Temperature Pulse Rate 81 81 73 Respiratory Rate 24 30 H 26 H Blood Pressure Pulse Oximetry 93 99 06/01/21 21:11 06/01/21 21:30 06/01/21 21:58 Temperature 98.6 F Pulse Rate 73 66 69 Respiratory Rate 25 H 20 16 Blood Pressure 135/88 139/87 145/90 H Pulse Oximetry 99 99 98 Oxygen Delivery Method Room Air Oxygen Flow Rate 0 Narrative Exam Narrative: Gen: Alert, oriented, well-developed 55 y.o. male, NAD HEENT: normocephalic, atraumatic, conjunctiva clear, sclera non-icteric, oral mucosa pink and moist Neck: supple, full ROM, no JVD, trachea is midline Resp: Lungs CTA, non-labored breathing CV: RRR, no murmur or rubs Abd: soft, non-tender, normoactive BTs Skin: no lesions or rashes, dry and intact Neuro: prominant facial droop with slurred speech, Alert and oriented X 4. Extremities: moves all 4 extremities, is ambulatory, negative Gaurav?s sign Psyche: normal mood and affect. Objective Labs Result Diagrams: 06/01/21 17:15 06/01/21 17:15 Labs: Laboratory Results - last 24 hr 06/01/21 06/01/21 06/01/21 17:15 17:15 17:15 WBC 6.7 RBC 4.91 Hgb 14.7 Hct 42.8 MCV 87.2 MCH 29.9 MCHC 34.3 RDW 13.6 Plt Count 233 Neut % (Auto) 70.4 Lymph % (Auto) 19.8 L [place] % (Auto) 7.7 Eos % (Auto) 1.3 L Baso % (Auto) 0.8 Neut # (Auto) 4700 Lymph # (Auto) 1300 [place] # (Auto) 500 Eos # (Auto) 100 Baso # (Auto) 100 PT 11.7 INR 1.0 APTT 31 Sodium 134 L Potassium 3.8 Chloride 99 Carbon Dioxide 24 BUN 22 H Creatinine 0.98 Estimated GFR > 60.0 BUN/Creatinine Ratio 22.4 H Glucose 95 Hemoglobin A1c Calcium 9.2 Total Bilirubin 0.6 AST 33 ALT 22 Alkaline Phosphatase 64 Total Creatine Kinase 154 CK-MB (CK-2) 2.41 H CK-MB (CK-2) Rel Index 1.6 Troponin I < 0.012 Total Protein 8.2 Albumin 4.9 Globulin 3.3 Albumin/Globulin Ratio 1.5 Urine RBC Urine WBC Ur Squamous Epith Cells Urine Bacteria Ur Culture Indicated? U Opiates 300ng/mL cut Ur Oxycodone Screen Urine Methadone Screen Ur Barbiturates Screen U Tricyclic Antidepress Ur Phencyclidine Scrn Ur Amphetamines Screen U Methamphetamines Scrn Ur MDMA Scrn (Ecstasy) U Benzodiazepines Scrn Urine Cocaine Screen U Marijuana (THC) Screen Ethyl Alcohol < 10 SARS-CoV-2 (PCR) 06/01/21 06/01/21 06/01/21 17:15 17:50 18:50 WBC RBC Hgb Hct MCV MCH MCHC RDW Plt Count Neut % (Auto) Lymph % (Auto) [place] % (Auto) Eos % (Auto) Baso % (Auto) Neut # (Auto) Lymph # (Auto) [place] # (Auto) Eos # (Auto) Baso # (Auto) PT INR APTT Sodium Potassium Chloride Carbon Dioxide BUN Creatinine Estimated GFR BUN/Creatinine Ratio Glucose Hemoglobin A1c 5.2 Calcium Total Bilirubin AST ALT Alkaline Phosphatase Total Creatine Kinase CK-MB (CK-2) CK-MB (CK-2) Rel Index Troponin I Total Protein Albumin Globulin Albumin/Globulin Ratio Urine RBC None seen Urine WBC 0-1/hpf Ur Squamous Epith Cells 0-1 /hpf Urine Bacteria None seen Ur Culture Indicated? Cult not indicated U Opiates 300ng/mL cut Negative Ur Oxycodone Screen Negative Urine Methadone Screen Negative Ur Barbiturates Screen Negative U Tricyclic Antidepress Negative Ur Phencyclidine Scrn Negative Ur Amphetamines Screen Negative U Methamphetamines Scrn Negative Ur MDMA Scrn (Ecstasy) Negative U Benzodiazepines Scrn Negative Urine Cocaine Screen Negative U Marijuana (THC) Screen Negative Ethyl Alcohol SARS-CoV-2 (PCR) 06/01/21 21:20 WBC RBC Hgb Hct MCV MCH MCHC RDW Plt Count Neut % (Auto) Lymph % (Auto) [place] % (Auto) Eos % (Auto) Baso % (Auto) Neut # (Auto) Lymph # (Auto) [place] # (Auto) Eos # (Auto) Baso # (Auto) PT INR APTT Sodium Potassium Chloride Carbon Dioxide BUN Creatinine Estimated GFR BUN/Creatinine Ratio Glucose Hemoglobin A1c Calcium Total Bilirubin AST ALT Alkaline Phosphatase Total Creatine Kinase CK-MB (CK-2) CK-MB (CK-2) Rel Index Troponin I Total Protein Albumin Globulin Albumin/Globulin Ratio Urine RBC Urine WBC Ur Squamous Epith Cells Urine Bacteria Ur Culture Indicated? U Opiates 300ng/mL cut Ur Oxycodone Screen Urine Methadone Screen Ur Barbiturates Screen U Tricyclic Antidepress Ur Phencyclidine Scrn Ur Amphetamines Screen U Methamphetamines Scrn Ur MDMA Scrn (Ecstasy) U Benzodiazepines Scrn Urine Cocaine Screen U Marijuana (THC) Screen Ethyl Alcohol SARS-CoV-2 (PCR) Negative Assessment & Plan Assessment & Plan narrative: Pardeep Ziegler is a 55 year old male with a prior history of a ependymoma, hemmorhagic CVA, and a most recent TIA in 2017 will be admitted for further management and treatment of an acute CVA which has affected mainly his speech center. 1. Acute CVA presnent on admission * Cardiac telemetry * NIH score greater than 5 no, NIH scoring and neuro checks q 4 hours * Dual antiplatelet therapy: Yes initiate dual antiplatelet therapy with clopidogrel 75 mg p.o. daily and aspirin 81 mg p.o. daily * MR stroke scheduled for today * Complete Echo with bubble study for today * PT/OT/ST evaluation 2. Hypertension, acute with an admission bp of 151/95, present on admission * Allow for permissive hypertension of 220/110 HR 60 to allow for brain perfusion * Allow for permissive hypertension for brain profusion of a systolic of 220 and a diastolic of 105. * IV labetolol if his systolic exceeds 220 or diastolic greater than 105. 3. HLD * Fasting lipid panel, pending for 0500 labs * Atorvastatin 80 mg po at bedtime 4. Risk stratification * Fasting lipid panel pending for the morning * A1c is 5.2 % not diabetic VTE Prophylaxis: Wells risk score 0 Enoxaparin 40 mg subQ once daily Bilateral SCDs Patient is admitted to the inpatient service due to the severity of disease, risks of further disease progression and this stay is expected to exceed 2 midnights. FEN: IV fluids: saline lock, patient is cleared for a heart healthy diet: labs: CBC, C/BMP, liver enzymes, Mag, Consultants None Dispo: probable discharge to home with reestablishment of followup with neurology Code status: Full Code as discussed with the patient who identifies his , Maggie his surrogate and POA. [X] I have utilized all available immediate resources to obtain, update, or review of the patient's current medications COVID-19 COVID-19 status: Negative Result date/Date tested (Pos, Neg/Pending): 06/01/21 Quality Stroke Contraindication Not Initiating IV-Tpa: Contraindicated Symptom Onset Unknown: Yes VTE Deep Vein Thrombosis/Pulmonary Embolism Present on Admission: No MIPS - Admit I confirm the patient?s Advance Care Plan is present, Code status is documented, Surrogate decision maker is in patient?s record [If Yes, STOP here]: Yes MIPS - DC The patient has current or prior documentation of left ventricular ejection fraction (LVEF) less than 40%, or moderate or severely depressed left ventricular systolic function.: No
[2021-06-02] MEDS: ACETAMINOPHEN 325 MG TABLET 650 MG PO ×3 (05:54→21:01)
[2021-06-02 06:29] LABS: Add Manual Diff / Slide Review NO; Basophils Absolute Auto 0 /uL (0-100); Basophils Percent Auto 0.4 % (0-2); Eosinophils Absolute Auto 0 /uL (0-450); Eosinophils Percent Auto 0.1 % (2-4); Hematocrit 41.8 % (41-53); Hemoglobin 14.3 g/dL (13.5-17.5); Lymphocytes Absolute Auto 800 /uL (1100-4500); Mean Corpuscular HGB Conc 34.3 % (30-36); Mean Corpuscular Hemoglobin 29.9 PG (26-34); Mean Corpuscular Volume 87.3 fL (80-100); Monocytes Absolute Auto 400 /uL (0-900); Monocytes Percent Auto 4.7 % (3-14); Neutrophils Absolute Auto 7400 /uL (1500-7000); Neutrophils Percent Auto 85.8 % (50-75); Platelet Count 219 X10^3/uL (150-400); Red Blood Cell Count 4.79 X10^6/uL (4.5-5.9); Red Cell Distribution Width 13.8 % (11.6-14.8); White Blood Cell Count 8.6 X10^3/uL (4.5-11.0)
[2021-06-02 06:38] LABS: BUN Creatinine Ratio 19.8 (6-22); Blood Urea Nitrogen 18 mg/dL (9-20); Calcium 8.9 mg/dL (8.4-10.2); Carbon Dioxide 20 mmol/L (22-32); Chloride 101 mmol/L (98-107); Cholesterol 268 mg/dL (140-199); Estimated Glomerular Filt Rate > 60.0 mL/min (>60); Glucose 91 mg/dL (70-100); HDL Cholesterol 60 mg/dL (40-60); HEMOLYSIS < 15 (0-50); LDL Cholesterol Calculated 198 mg/dL (<100); Magnesium 1.8 mg/dL (1.6-2.3); Potassium 4.2 mmol/L (3.4-5.1); Sodium 132 mmol/L (137-145); Triglycerides 51 mg/dL (35-150)
--- NOTE | 2021-06-02 06:55 | PC.NURSE ---
Pt came in with stroke like symptoms. Pt has a right side facial droop and slurred speech. NIH 3 due to the speech. Pt c/o headache since they did the Head CT in the ER. Getting tylenol around the clock and according to him headache is improving. Pt has a history of strokes in the past (hemorrhagic) and craniectomy with a metal plate. Pt needs close monitoring.
[2021-06-02] MEDS: TRAMADOL 50 MG TABLET PO ×2 (09:00→18:49)
[2021-06-02] MEDS: ASPIRIN EC 81 MG TABLET PO (09:02)
[2021-06-02] MEDS: CLOPIDOGREL 75 MG TABLET PO (09:03)
[2021-06-02] MEDS: ENOXAPARIN 40 MG/0.4 ML SYRINGE SUBCUT (09:03)
--- NOTE | 2021-06-02 10:07 | OT.IP.EVAL ---
Current Diagnoses Cerebral infarction, unspecified (06/01/21) Past Medical History (Last Reviewed 06/02/21 @ 06:10 by KAILYN Sifuentes) Chronic dryness of both eyes CVA (cerebral vascular accident) 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) History of craniotomy Hyperlipidemia Intracranial tumor (07/04/14) Kidney stone Laceration of right thumb Osteonecrosis Transient cerebral ischemia (03/10/17) Surgical History (Last Reviewed 06/02/21 @ 06:10 by KAILYN Sifuentes) History of craniotomy Status post laminectomy Occupational Therapy Inpatient Evaluation/Re-Eval M1 PT/OT-IP Prior Functional Status Start: 06/02/21 09:04 Freq: NEEDED Status: Active Protocol: Document 06/02/21 12:47 CGR (Rec: 06/02/21 13:10 CGR [id number]) Medical Review Prior Functional Status Medical History Reviewed Yes Communication WNL. Pt is an effective verbal communicator at baseline. His speech is slurred at this encounter. Mobility and Gait Pt has shorter RLE and uses a lift in his right shoe for independent mobility with no assistive device. History includes hemorrhagic bleed s/p brain sx and L VEGA to treat avascular necrosis which was the result of chemotherapy for brain cancer. He does not recall any falls in the past two years. Activities of Daily Living and IADL's Independent with ADL's. Pt depends on his to drive as he does not. 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 Prior Functional Level (Other details) Pt rides his bike for transportation d/t central vision loss. Social History Household Members spouse,children Living Arrangements House Number of Floors (Floors) Two Floors Number of Stairs To Enter/Railing? 7 steps to enter through the garage with R rail ascending. Home Environment Standard Height Toilet,Walk in Shower,Built-In Shower Seat Home Equipment Straight Cane Employment Status Self-Employed Additional Social History Comment Pt lives with his spouse, Maggie, and their daughters ( aged 21, 15, and 14). does not work outside the home . 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 M1 PT/OT-IP Prior Functional Status Start: 06/02/21 12:47 Freq: NEEDED Status: Active Protocol: Document 06/02/21 12:47 CGR (Rec: 06/02/21 13:10 [facility] [id number]) Medical Review Prior Functional Status Medical History Reviewed Yes Communication WNL. Pt is an effective verbal communicator at baseline. His speech is slurred at this encounter. Mobility and Gait Pt has shorter RLE and uses a lift in his right shoe for independent mobility with no assistive device. History includes hemorrhagic bleed s/p brain sx and L VEGA to treat avascular necrosis which was the result of chemotherapy for brain cancer. He does not recall any falls in the past two years. Activities of Daily Living and IADL's Independent with ADL's. Pt depends on his to drive as he does not. 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 Prior Functional Level (Other details) Pt rides his bike for transportation d/t central vision loss. Social History Household Members spouse,children Living Arrangements House Number of Floors (Floors) Two Floors Number of Stairs To Enter/Railing? 7 steps to enter through the garage with R rail ascending. Home Environment Standard Height Toilet,Walk in Shower,Built-In Shower Seat Home Equipment Straight Cane Employment Status Self-Employed Additional Social History Comment Pt lives with his spouse, Maggie, and their daughters ( aged 21, 15, and 14). does not work outside the home . 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 M2 OT-IP Current Condition Start: 06/02/21 12:47 Freq: Status: Active Protocol: Document 06/02/21 12:47 CGR (Rec: 06/02/21 13:10 [facility] [id number]) Occupational Therapy Current Condition Current Condition Evaluation Date 06/02/21 Treatment Diagnosis R sided facial droop, slurred speech Diagnosis Onset Date 06/01/21 M3 OT- IP Subjective and Pain Start: 06/02/21 12:47 Freq: Status: Active Protocol: Document 06/02/21 12:47 CGR (Rec: 06/02/21 13:10 [facility] [id number]) OT- Subjective Occupational Therapy Visit Type Type Initial Evaluation Visit Start Time 09:48 Visit Stop Time 10:07 Total Visit Minutes 19 OT Pain Assessment Pain When Pain Assessed At Rest Pain Present Pain Present Denied Pain M4 OT- IP ADL's Start: 06/02/21 12:47 Freq: Status: Active Protocol: Document 06/02/21 12:47 CGR (Rec: 06/02/21 13:10 CGR [id number]) OT [id number] Comments OT Self-Feeding Comments Not meal time OT ADL-Grooming General Evaluation Grooming Ability Standby Assistance Comments OT Grooming Comments washed hands with SBA but difficulty using the soap and the automatic water faucet OT ADL-Oral Care Comments Oral Care Comments Not performed, pt states he performed this AM OT ADL-Dressing General Eval Lower Body Dressing Ability Moderate Assistance Areas Needing Assistance Socks Comments OT Dressing Comments Pt had significant difficulty donning his sock d/t poor coordination of the R hand OT ADL-Toileting Comments OT Toileting Comments Not performed OT ADL-Bathing Comments OT Bathing Comments Not performed M5 OT- IP IADL's Start: 06/02/21 12:47 Freq: Status: Active Protocol: Document 06/02/21 12:47 CGR (Rec: 06/02/21 13:10 CGR [id number]) OT-Instrumental Activities of Daily Living Deficits IADL Deficits Identified Deficits Home Safety Awareness Awareness of Need for Assistance at Home Decreased Awareness Ability to Problem Solve Emergency Unable to Problem Solve Situations Medication Management Medication Management Comments Concerns regarding pt's ability to perform safely Money Management Money Management Comments Concerns regarding pt's ability to perform safely Meal Preparation Meal Preparation Comments Concerns regarding pt's ability to perform safely 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 Comments Concerns regarding pt's ability to perform safely Driving Driving Comments Pt does not drive at baseline M6 OT- IP Functional Cognition Start: 06/02/21 12:47 Freq: Status: Active Protocol: Document 06/02/21 12:47 CGR (Rec: 06/02/21 13:10 CGR [id number]) Cognitive Factors Limiting Selfcare Function Cognitive Ability Level of Alertness Alert Patient Orientation Name,Age,Birthday,Month,Date, Year,Day of Week,Place, Situation Attention Span Ability Capable of Focused Attention, Capable of Sustained Attention Ability to Follow Commands Able to Follow One Step Commands with Increased Time, Able to Follow One Step Commands with Repetition Cognitive Comments Cognitive Assessment Comments Pt demonstrates signs of a decline to cognitive abilities . ST present at end of OT session and agreeable to performing the SLUMS. Check ST note for formal testing. OT- Vision and Hearing OT- Hearing Assessment OT- Hearing Assessment WFL OT- Vision Assessment Visual Acuity Glasses All The Time Visual Attentiveness WFL Occular Pursuits WFL Visual Convergence WFL Vision Assessment Comments Pt states hx of central vision loss of the R eye. M7 OT- IP Mobility and Balance Start: 06/02/21 12:47 Freq: Status: Active Protocol: Document 06/02/21 12:47 CGR (Rec: 06/02/21 13:10 CGR [id number]) OT- Bed Mobility Assessment Supine to Sit Supine to Sit Assist Independent Scooting Scooting to Edge of Bed Independent OT-Transfer Assessment Sit to and From Stand Sit to and from Stand Contact Guard Assistance Transfers Transfer Ability Contact Guard Assistance Technique Transfer Destination Bed,Chair,Toilet Transfer Technique Stand Step Pivot Devices Transfer Assistive Devices Gait Belt Comments Mobility Comments Pt ambulated around the room with wide stiff stance. Pt states that he typically wears a lift in his shoe but can't state if this is his typical gait. OT- Gait Assessment Gait Gait Assistance Required: Contact Guard Assist Assistive Devices Assistive Device Gait Belt OT- Balance Assessment Sitting Balance and Reactions Static Sitting Balance Ability Normal Dynamic Sitting Balance Ability Good M8 OT- IP Objective Assessments Start: 06/02/21 12:47 Freq: Status: Active Protocol: Document 06/02/21 12:47 CGR (Rec: 06/02/21 13:10 CGR [id number]) OT Gross Range of Motion Upper Extremity Range of Motion Assessment Within Functional Limits OT Strength Upper Extremity Strength Assessment Within Functional Limits Comments Strength Comments 4+/5 throughout OT- Coordination Assessment Upper Extremity Finger to Nose Test Right UE Impaired Finger Tapping Test Right UE Impaired Comments Coordination Comments Pt with significantly delayed fine motor on the right hand and also inability to consistently touch the tip of his nose. OT-Muscle Tone Assessment Muscle Tone WNL Yes OT Sensation Assessment Edema Edema Absent M9 OT- IP Assessment and Plan Start: 06/02/21 12:47 Freq: Status: Active Protocol: Document 06/02/21 12:47 CGR (Rec: 06/02/21 13:10 CGR [id number]) OT Summary Assessment and Plan Potential Rehabilitation Potential Excellent Analytic Complexity at Evaluation Moderate Summary OT Impairments Balance,Coordination, Functional Cognition, Functional Mobility,Self- Feeding,Grooming,Dressing, Toileting,Bathing,Toilet Transfers,Shower Transfers Progress Towards Goals Slow Progress due to Cognition Assessment Summary Pt presents as a moderate complexity evaluation s/p admit for stoke like symptoms. Pt demonstrates deficits to fined and gross motor control of his right hand, cognition/ problem solving, functional mobility, and balance. Pt would benefit from acute rehab for deficits as he has good endurance. Goals Self-Feeding Goal Independent Grooming Goal Independent Dressing Goal Independent Toileting Goal Independent Bathing Goal Independent Toilet Transfer Goal Independent Shower Transfer Goal Independent OT-Other Goals improve R hand fine/gross motor for ADLs without assist or extra time. Days to Meet Goals 20 Frequency of Treatment Frequency Of Treatment Once a Day Treatment Plan OT Treatment Plan ADL Training,Functional Cognition Training,Functional Mobility,Patient/Family Education,Discharge Planning Other Treatment Recommendations and Next R hand coordination Treatment Focus Discharge Recommendations OT Discharge Recommendations Acute Rehab Transportation Needs at Discharge Private Vehicle
--- NOTE | 2021-06-02 10:58 | PT.IIE ---
Current Diagnoses Cerebral infarction, unspecified (06/01/21) Surgical History (Last Reviewed 06/02/21 @ 06:10 by KAILYN Sifuentes) Status post laminectomy Medical History (Last Reviewed 06/02/21 @ 06:10 by KAILYN Sifuentes) Chronic dryness of both eyes CVA (cerebral vascular accident) 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) Hyperlipidemia Intracranial tumor (07/04/14) Kidney stone Laceration of right thumb Osteonecrosis Transient cerebral ischemia (03/10/17) Physical Therapy Inpatient Evaluation/Re-Eval M1 PT/OT-IP Prior Functional Status Start: 06/02/21 09:04 Freq: NEEDED Status: Active Protocol: Document 06/02/21 10:58 AW (Rec: 06/02/21 11:45 AW [id number]) Medical Review Prior Functional Status Medical History Reviewed Yes Communication WNL. Pt is an effective verbal communicator at baseline. His speech is slurred at this encounter. Mobility and Gait Pt has shorter RLE and uses a lift in his right shoe for independent mobility with no assistive device. 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 He does not recall any falls in the past two years. Activities of Daily Living and IADL's Independent with ADL's. Pt depends on his to drive as he does not. 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 Social History Household Members spouse,children Living Arrangements House Number of Floors (Floors) Two Floors Number of Stairs To Enter/Railing? 7 steps to enter through the garage with R rail ascending. Home Environment Standard Height Toilet,Walk in Shower,Built-In Shower Seat Home Equipment Straight Cane Employment Status Self-Employed Additional Social History Comment Pt lives with his spouse, Maggie, and their daughters ( aged 21, 15, and 14). does not work outside the home . 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 M2 PT-IP Current Condition Start: 06/02/21 09:04 Freq: NEEDED Status: Active Protocol: Document 06/02/21 10:58 AW (Rec: 06/02/21 11:45 AW [id number]) Physical Therapy Current Condition Current Condition Evaluation Date 06/02/21 Treatment Diagnosis CVA vs TIA, R-side weakness; impaired mobility and gait Onset Date 06/01/21 M3 PT-IP Subjective Start: 06/02/21 09:04 Freq: NEEDED Status: Active Protocol: Document 06/02/21 10:58 AW (Rec: 06/02/21 11:45 AW [id number]) Subjective Physical Therapy Visit Type Type Initial Evaluation Visit Start Time 10:30 Visit Stop Time 10:58 Total Visit Minutes 28 Physical Therapy Visit Comments Patient Comments Pt is willing to participate with PT Patient Goals Return home with family support. Therapy Pain Assessment Pain When Pain Assessed During Mobility Pain Present Pain Present Denied Pain M4 PT-IP Mobility and Gait Start: 06/02/21 09:04 Freq: NEEDED Status: Active Protocol: Document 06/02/21 10:58 AW (Rec: 06/02/21 12:09 AW [id number]) PT-Bed Mobility Assessment Supine to Sit Supine to Sit Independent Sit to Supine Sit to Supine Independent Scooting Scooting to Edge of Bed Independent PT-Transfer Assessment Sit to and From Stand Sit to and from Stand Standby Assistance,Contact Guard Assistance,Use of Upper Extremities Equipment Transfer Assistive Device None,Gait Belt Orthotic/Prosthetic Devices or Brace: No Transfers Transfer Destination Bed,Chair Transfer Technique Stand Step Pivot Transfer Ability Level of Assist Standby Assistance Comments Mobility Comments Pt was lying in bed as PT arrived. BP 128/76 HR 76. He sat up to EOB IND and stood with some initial unsteadiness requiring CGA. He stepped away from the bed for static balance assessment and then agreed to ambulate the halls. He walked 200 feet SBA/CGA and returned to the room, transferring first to the chair and then to the bed SBA. He returned to supine IND and was left with call light and all needs in reach with bed alarm on. Gait Assessment Gait Gait Assistance Required: Standby Assistance,Contact Guard Assist Distance (Feet) 200 Assistive Devices Assistive Device None,Gait Belt Orthotic/Prosthetic Devices or Brace: No Gait Deviations General Gait Pattern Ataxic,Decreased Stride Length ,Decreased Feet Clearance,Wide Based Gait Factors Limiting Gait Function Factors Limiting Gait Function Decreased Sensation,Decreased Strength,Incoordination,Poor Balance,Poor Safety Awareness Comments Gait Comments Pt does not have his regular orthotic in the room but prefers to don his shoes for ambulation anyway. He was unable to coordinate tying his shoelaces with impaired R hand coordination. PT assisted . Pt stood and ambulated in the halls 200 feet SBA/CGA. Gait was notable for left foot drop (pre-existing per pt) and poorly controlled RLE abduction. Pt was unable to bring RLE to midline in response to cues. He was uncertain whether his gait was back to baseline. Difficult to assess without pt's regular orthosis for his right shoe but current gait is inconsistent with claims of no falls in the past two years. 4-item DGI was completed with score of 8/12 (single points deducted for normal pace gait, head turns, head nods, and change in gait speed). Stair Climbing Assessment Comments Stair Climbing Comments Not assessed. PT-Balance Assessment Sitting Balance and Reactions Static Sitting Balance Ability Normal Dynamic Sitting Balance Ability Good Standing Balance and Reactions Static Standing Balance Ability Fair Dynamic Standing Balance Ability Fair Device Used no AD Balance Tests Romberg WNL EO; impaired EC Tandem Standing unable to assume tandem stance without assist Comments Other Balance Tests/Deviations/Treatment Pt had posterior LOB with : sternal nudges and needed min A to recover. Functional Assessments Functional Tests Dynamic Gait Index 4-item DGI: 8 M5 PT-IP Objective Assessments Start: 06/02/21 09:04 Freq: NEEDED Status: Active Protocol: Document 06/02/21 10:58 AW (Rec: 06/02/21 12:09 AW [id number]) Orientation Orientation/Cognition Level of Alertness Confusional State Orientation Name,Month,Place,Situation Language Function Ability Garbled Speech Safety Awareness Decreased Safety Awareness Gross Range of Motion Upper Extremity ROM Assessment Within Functional Limits Lower Extremity ROM Assessment Within Functional Limits Strength Upper Extremity Strength Assessment Right Impaired Hand flame burner strength 1 grade < left which pt states is >baseline impairment Lower Extremity Strength Assessment Left Impaired Hip 4+/5 Knee 5/5 Ankle 3+/5 DF Comments Strength Comments Pt reports pre-existing L foot drop Coordination Assessment Gross Coordination Gross Coordination Impaired Assessment Finger to Nose Test Minimal Impairment Pronation/Supination Test Moderate Impairment Foot Tapping Test Minimal Impairment Coordination Comments Pt missed targets >1 cm on finger to nose testing EO and EC. Unable to complete rapid pronation/supination without RUE lag. Sensation Assessment Sensation Gross Sensation Right LE Impaired Proprioception (Position) Impaired Comments Sensation Comments Pt has poor RLE coordination in gait. Muscle Tone Muscle Tone WNL Yes Other Assessments Other Other Assessments Pt has right facial droop and slurred speech. M6 PT-IP Treatment Start: 06/02/21 09:04 Freq: NEEDED Status: Active Protocol: Document 06/02/21 10:58 AW (Rec: 06/02/21 12:09 AW [id number]) Physical Therapy Treatment Education Education Provided Safety Other Treatments Other Treatment Performed Educated pt on evaluation findings and PT plan of care. Initiated discharge planning discussion with recommendation for some level of rehab including possible referral to inpatient acute rehab. M7 PT-IP Assessment and Plan Start: 06/02/21 09:04 Freq: NEEDED Status: Active Protocol: Document 06/02/21 10:58 AW (Rec: 06/02/21 12:19 AW [id number]) PT Summary Assessment and Plan Potential Rehabilitation Potential Good Status of Condition at Evaluation Evolving Summary Impairments Strength,Balance,Coordination, Sensation,Cognition,Transfers, Gait Assessment Summary Pardeep is an active 55 yo man with history of hemorrhagic CVA, brain cancer, L VEGA secondary to avascular necrosis resulting from chemotherapy. He is admitted with acute stroke-like symptoms of right facial droop , slurred speech, and increased right upper extremity weakness. On assessment, pt demonstrates right-sided coordination deficits, RUE weakness, impaired proprioception on the right side affecting gait, and possible cognitive deficits. He scored 8/12 on 4- item Dynamic Gait Index indiciating impaired dynamic balance with increased risk of falls. Pt is expected to benefit from continued acute PT services to address these deficits. He would also benefit from acute rehab to improve coordination, gait, and mobility for return to functional baseline. Goals Transfer Goal Independent Gait Goal Independent Gait Distance 500 Other Goals - up/down 7 steps with R rail ascending SBA Days to Meet Goals 8 Frequency of Treatment Frequency Of Treatment Twice a Day Treatment Plan Physical Therapy Treatment Plan Transfer Training,Gait Training,Therapeutic Exercise, Balance Retraining,Discharge Planning,Neuromuscular Re-ed, Coordination Retraining Other Recommendations and Next Treatment Complete DGI or FGA. Gait Focus training and dynamic balance interventions. Recommendations To Nursing Amount of Assist Needed 1 Person Assist Discharge Recommendations PT Discharge Recommendations Home with Assistance,Acute Rehab,Outpatient PT Other Discharge Recommendations acute rehab vs home with OP PT Transportation Needs at Discharge Private Vehicle
--- NOTE | 2021-06-02 11:59 | ST.IPIE ---
Visit Care Team Role Provider Type Richie Whipple MD Primary Care Provider Physician Specialty: Family Practice Address: [address] [place] [address], [id number] Email: [email or web address] Rafy Barkley MD Family Provider Physician Specialty: Family Practice Address: [address] [place] [address], [id number] Email: [email or web address] Elizabeth Patterson DO Emergency Provider Physician Referring Provider Specialty: Emergency Medicine Address: [address] [place] [address], [address] Email: [email or web address] Admit Provider Physician Attending Provider Specialty: Internal Medicine Address: [address] [place] [address], [address] Email: [email or web address] Current Diagnoses Cerebral infarction, unspecified (06/01/21) Past Medical History (Last Reviewed 06/02/21 @ 06:10 by KAILYN Sifuentes) Chronic dryness of both eyes (Medical) CVA (cerebral vascular accident) (Medical) Ependymoma (Medical) Ependymoma of brain (Medical) Hemorrhagic cerebrovascular accident (CVA) (Medical) History of craniotomy (Medical) Hyperlipidemia (Medical) Intracranial tumor (Medical 07/04/14) Kidney stone (Medical) Laceration of right thumb (Medical) Osteonecrosis (Medical) Transient cerebral ischemia (Medical 03/10/17) ST IP Initial Evaluation Report [employer] Clinical Swallow Evaluation Start: 06/02/21 11:25 Freq: Status: Active Protocol: Document 06/02/21 11:26 INGRID (Rec: 06/02/21 11:59 INGRID [id number]) Clinical Swallow Evaluation Session Time Visit Start Time 09:55 Visit Stop Time 10:10 Total Visit Minutes 15 Setting Assessment Location Acute Care Visit Type Note Type Initial evaluation Next Note Type Next Note Type Treatment Note Patient Information Identification Type Name,Date of History Pardeep Ziegler is a 55 year old male with a prior history of a ependymoma, hemmorhagic CVA, and a most recent TIA in 2017 . He was admitted for further management and treatment of an acute CVA which has affected mainly his speech center. Subjective Observations The pt was reclined in bed with his breakfast tray. He was just beginning to eat breakfast and was agreeable to swallow evaluation. The pt's greatest complaints are with his speech. He denied swallow difficulties prior to this event. Nursing was present and provided oral meds. Pt was repositioned upright in bed for swallow safety. Reported by Patient Pain Intensity 5 Location Head Comment Speech difficulties Current Diet Regular,Thin liquids Baseline Feeding Method Independent in self-feeding Objective Assessment Mental Status Alert,Responsive,Cooperative Oral Integrity WFL Dentition Within normal limits Lip Function Moderate impairment Observation of Lips at Rest Right sided weakness/Drooping Pucker Reduced range of motion, Reduced strength,Right sided weakness/drooping Lip Retraction Reduced range of motion,Right sided weakness/Drooping Alternating Pucker/Lip Retraction Reduced range of motion Tongue Function Mild impairment Tongue Protrusion Deviates to the left Tongue Lateralization Reduced strength Hard/Soft Palate Function Within normal limits Observations of Hard/Soft Palate Within normal limits Nasality Within normal limits Phonation Within normal limits Respiratory Sufficiency Within normal limits Comment Moderate right side facial and ligual weakness present. Pt was unable to fill cheeks with air. Eyes appear not to track equally, as well, requiring greater use of left eye for vision with right visual loss. The pt followed most oral instructions with occ need for demonstration. Speech was slow and imprecise, although intelligible. Expressive and receptive language processing speeds appear slow. Speech and language evaluation to be completed this afternoon in order to allow the pt to have his breakfast. Food and Liquid Trials Position During Assessment Upright (90 degrees) Liquids Trialed Thin Solids Trialed Dysphagia Mechanical, Mechanical Soft,Regular Administration Type Straw,Self-feeding Oral Impairment Mildly impaired Oral Phase Comments Mastication of soft foods ( eggs, hash browns) was WNL; more extensive with regular texture (sausage). Moderate pocketing was observed at right buccal cavity. The pt did not initially sense the residue but did so after [employer] noted it. He was able to clear most of it with lingual sweep and liquid wash. Recommended the pt perform these strategies frequently during oral intake and perform oral care after all meals to ensure clearance. He agreed. Pharyngeal Impairment Within normal limits Pharyngeal Phase Comments No over s/sx of aspiration were observed with all trials, including meds consumed whole with water. Will continue to follow for ongoing assessment of diet tolerance. Fatigue/Endurance Endurance WNL Strategies Attempted Other Response/Comments Lingual sweep and liquid wash to reduce right side pocketing . Findings Swallowing Function Oral phase dysphagia Severity of Swallow Impairment Mildly-moderately impaired Contributing Factors to Swallow Reduced oral strength/ Impairment coordination/sensation, Mastication inefficiency, Excessive oral residue Prognosis Good Based on Cognitive status,Family support,Age,Comorbidities, Duration of symptoms/severity Impact on Safety and Functioning Risk for aspiration Comments Mild risk of aspiration Recommendations Instrumental Assessment No Swallowing Treatment Yes Frequency Daily Duration over hospital stay. To include dysphagia, speech and language treatment Recommended Solids Regular Recommended Liquids Thin Safety Precautions/Swallowing Reduce distractions,Remain Recommendations upright (90 degrees) during all oral intake,Upright position at least 30 minutes after meals,Small bites and sips when eating,Slow rate; swallow between bites,Strict oral care after intake,Check for pocketing Medication Recommendations As Tolerated Comments Discharge recommendation pending speech & language eval Education Patient/Caregiver Education Described results of evaluation,Patient expressed understanding of evaluation, Patient expressed agreement with goals & treatment plans, Patient expressed understanding of safety precautions,Patient expressed understanding of feeding recommendations,Patient requires further education/ training Goals Short-term Goals 1. The pt will participate in speech and language assessment to guide POC. 2. The pt will follow safe swallow strategies to reduce risk of aspiration. Long-term Goals 1. The pt will tolerate least restrictive diet to meet his nutrition and hydration needs. Additional goals to be established pending speech and language evaluation.
--- NOTE | 2021-06-02 13:54 | DI.RAD.S_ITS ---
PROCEDURE: XR CHEST 1V INDICATIONS: fever TECHNIQUE: One view of the chest was acquired. COMPARISON: [facility], , CHEST 1 VIEW, 02/21/2017, 19:47. FINDINGS: Surgical changes and devices: None. Lungs and pleura: Lungs are clear. No pleural effusions or pneumothorax. Mediastinum: Mediastinal contours appear normal. Heart size is normal. Bones and chest wall: No suspicious bony lesions. Overlying soft tissues appear unremarkable. IMPRESSION: No acute pulmonary process. Dictated by: Alyson Coppola M.D. on 06/02/2021 at 14:15 Approved by: Alyson Coppola M.D. on 06/02/2021 at 14:15
--- NOTE | 2021-06-02 14:02 | PT.IPTN ---
Current Diagnoses Cerebral infarction, unspecified (06/01/21) Physical Therapy Treatment Note M2 PT-IP Current Condition Start: 06/02/21 09:04 Freq: NEEDED Status: Active Protocol: Document 06/02/21 10:58 AW (Rec: 06/02/21 11:45 AW [id number]) Physical Therapy Current Condition Current Condition Evaluation Date 06/02/21 Treatment Diagnosis CVA vs TIA, R-side weakness; impaired mobility and gait Onset Date 06/01/21 M3 PT-IP Subjective Start: 06/02/21 09:04 Freq: NEEDED Status: Active Protocol: Document 06/02/21 13:41 KS (Rec: 06/02/21 14:22 KS [id number]) Subjective Physical Therapy Visit Type Type Treatment Note Visit Start Time 13:41 Visit Stop Time 14:02 Total Visit Minutes 21 Number of CLINIC LPN Visits 1 Physical Therapy Visit Comments Patient Comments Pt is willing to participate with PT M4 PT-IP Mobility and Gait Start: 06/02/21 09:04 Freq: NEEDED Status: Active Protocol: Document 06/02/21 13:41 KS (Rec: 06/02/21 14:22 KS [id number]) PT-Bed Mobility Assessment Supine to Sit Supine to Sit Independent Sit to Supine Sit to Supine Independent Scooting Scooting to Edge of Bed Independent PT-Transfer Assessment Sit to and From Stand Sit to and from Stand Standby Assistance,Contact Guard Assistance,Use of Upper Extremities Equipment Transfer Assistive Device None,Gait Belt Orthotic/Prosthetic Devices or Brace: No Transfers Transfer Destination Bed Transfer Technique Pt ambulated w/o AD Transfer Ability Level of Assist Standby Assistance Comments Mobility Comments Pt in bed upon arrival and willing to participate w/ therapy. Able to independently sup<>sit and scoot EOB. CGA for sit<>stand, pt w/ slight post LOB but recovered CGA. Pt then ambulated ~30 ft around room, L foot drop present prior, but decreased stride and foot clearance bilaterally and wide based gait w/ decreased knee flexion during swing phase. Pt then used hand rail to perform marching in place, 10x steps forward and back to middle, 10x steps w/ weightshift and slight lunge forward and back to middle, then facing the wall performed 10x each direction forward, side, and back and 10 more of each but now with weight shift in each direction, followed by 10x each heel and toe raises to imprve strength, balancem and proprioceptive awareness. Pt then ambulated additional 50 ft in room CGA w / cues for heel toe walking, swinging leg straight forward. Gait slightly improved w/ cues. eeg tech arrived and pt transferred back to bed SBA. Left in bed w/ alarm on and all needs in reach. Gait Assessment Gait Gait Assistance Required: Standby Assistance,Contact Guard Assist Distance (Feet) 80 Assistive Devices Assistive Device None,Gait Belt Orthotic/Prosthetic Devices or Brace: No Gait Deviations General Gait Pattern Ataxic,Decreased Stride Length ,Decreased Feet Clearance,Wide Based Gait Factors Limiting Gait Function Factors Limiting Gait Function Decreased Sensation,Decreased Strength,Incoordination,Poor Balance,Poor Safety Awareness Comments Gait Comments Pt stated he forgot to tell to bring orthotic but will call her this PM. Able to ambulate ~80 ft total in room CGA w/ WBOS and decreased stride and foot clearance and L foot drop. Following exericses and cues, pt w/ slight increase in ability to have RLE more midline. Pt high fall risk at this time. Stair Climbing Assessment Comments Stair Climbing Comments Not assessed. PT-Balance Assessment Sitting Balance and Reactions Static Sitting Balance Ability Normal Dynamic Sitting Balance Ability Good Standing Balance and Reactions Static Standing Balance Ability Fair Dynamic Standing Balance Ability Fair Device Used no AD Comments Other Balance Tests/Deviations/Treatment Proprioceptive and balance : exercises as listed above. M5 PT-IP Objective Assessments Start: 06/02/21 09:04 Freq: NEEDED Status: Active Protocol: Document 06/02/21 10:58 AW (Rec: 06/02/21 12:09 AW [id number]) Orientation Orientation/Cognition Level of Alertness Confusional State Orientation Name,Month,Place,Situation Language Function Ability Garbled Speech Safety Awareness Decreased Safety Awareness Gross Range of Motion Upper Extremity ROM Assessment Within Functional Limits Lower Extremity ROM Assessment Within Functional Limits Strength Upper Extremity Strength Assessment Right Impaired Hand artificial candy maker strength 1 grade < left which pt states is >baseline impairment Lower Extremity Strength Assessment Left Impaired Hip 4+/5 Knee 5/5 Ankle 3+/5 DF Comments Strength Comments Pt reports pre-existing L foot drop Coordination Assessment Gross Coordination Gross Coordination Impaired Assessment Finger to Nose Test Minimal Impairment Pronation/Supination Test Moderate Impairment Foot Tapping Test Minimal Impairment Coordination Comments Pt missed targets >1 cm on finger to nose testing EO and EC. Unable to complete rapid pronation/supination without RUE lag. Sensation Assessment Sensation Gross Sensation Right LE Impaired Proprioception (Position) Impaired Comments Sensation Comments Pt has poor RLE coordination in gait. Muscle Tone Muscle Tone WNL Yes Other Assessments Other Other Assessments Pt has right facial droop and slurred speech. M6 PT-IP Treatment Start: 06/02/21 09:04 Freq: NEEDED Status: Active Protocol: Document 06/02/21 13:41 KS (Rec: 06/02/21 14:22 KS [id number]) Physical Therapy Treatment Education Education Provided Safety Other Treatments Other Treatment Performed Heel Raises Toe Raises Marching in place Step forward and back to middle w/ and w/o mini lunge/ weight shift Star taps (forward, side, back ) M7 PT-IP Assessment and Plan Start: 06/02/21 09:04 Freq: NEEDED Status: Active Protocol: Document 06/02/21 13:41 KS (Rec: 06/02/21 14:22 KS [id number]) PT Summary Assessment and Plan Potential Rehabilitation Potential Good Status of Condition at Evaluation Evolving Summary Impairments Strength,Balance,Coordination, Sensation,Cognition,Transfers, Gait Assessment Summary Pt w/ good tolerance for activity this PM. Able to participate in gait training and balance and proprioceptive awareness exercises. L sided foot drop, RLE abduction, WBOS and poor balance all increase fall risk. Will continue to progress pt in effort to improve proprioception and gait, however ultimately pt will greatly benefit from acute rehab to improve coordination, gait, and strength. Goals Transfer Goal Independent Gait Goal Independent Gait Distance 500 Other Goals - up/down 7 steps with R rail ascending SBA Days to Meet Goals 8 Frequency of Treatment Frequency Of Treatment Twice a Day Treatment Plan Physical Therapy Treatment Plan Transfer Training,Gait Training,Therapeutic Exercise, Balance Retraining,Discharge Planning,Neuromuscular Re-ed, Coordination Retraining Other Recommendations and Next Treatment Complete DGI or FGA. Gait Focus training and dynamic balance interventions. Recommendations To Nursing Amount of Assist Needed 1 Person Assist Discharge Recommendations PT Discharge Recommendations Home with Assistance,Acute Rehab,Outpatient PT Other Discharge Recommendations acute rehab vs home with OP PT Transportation Needs at Discharge Private Vehicle
--- NOTE | 2021-06-02 15:23 | CM.DPNOTE ---
Bereket Acosta, faxed referral to [facility] and KAREL Lang Received fax conf. Cherise Campoverde CM Assist.
--- NOTE | 2021-06-02 15:29 | P.PN_ITS ---
Subjective Subjective Date Patient Seen: 06/02/21 Time Patient Seen: 15:30 Interval history: This is a 55 year old male with complex PMH of brain cancer with ICH after surgery and prior TIA admitted with dysarthria, facial droop, and imbalance which started 2 days prior to admission. Continues to have deficits on exam today, MRI negative but highly suspect false negative. Exam Vital Signs (past 8 hours): - 06/02/21 08:00 06/02/21 11:00 Temperature 100.1 F H 98.3 F Pulse Rate 85 71 Respiratory Rate 16 16 Blood Pressure 138/75 126/78 Pulse Oximetry 95 99 Oxygen Delivery Method Room Air Oxygen Flow Rate 0 Narrative Exam Narrative: General:? Patient is well developed and well nourished, in no distress at this time. HEENT:? Normocephalic, atraumatic, extraocular muscles intact, oral pharynx is clear and mucous membranes are moist. Neck: supple and symmetric, trachea is midline, no cervical adenopathy. Chest:? Normal AP diameter and contour without kyphoscoliosis, no tachypnea, equal chest rise bilaterally. Lungs:? CTA b/l no wheezing rhonchi or rales. Cardio:?RRR no m/r/g. Abdomen: S NT ND. No CVA tenderness. Musculoskeletal:? Muscle strength and tone are equal within normal limits, no deformity. Extremities: No edema or joint effusions. No cyanosis or clubbing. Skin:? Pale,? Warm to touch,dry and intact without rashes, ulcerations or petechiae.? Neuro:? Alert and orientated x3,?RUE +5/5 strength. + facial droop and tongue deviation to the R. reported R sided ataxia with PT as well, cognition much di minished from baseline per OT evaluations. Psych:? Patient has a well-kept appearance, appropriate affect, mental status attitude thought context and judgment are appropriate for age. Objective Labs Result Diagrams: 06/02/21 05:45 06/02/21 05:45 Labs: Laboratory Results - last 24 hr 06/01/21 06/01/21 06/01/21 17:15 17:15 17:15 WBC 6.7 RBC 4.91 Hgb 14.7 Hct 42.8 MCV 87.2 MCH 29.9 MCHC 34.3 RDW 13.6 Plt Count 233 Neut % (Auto) 70.4 Lymph % (Auto) 19.8 L [place] % (Auto) 7.7 Eos % (Auto) 1.3 L Baso % (Auto) 0.8 Neut # (Auto) 4700 Lymph # (Auto) 1300 [place] # (Auto) 500 Eos # (Auto) 100 Baso # (Auto) 100 PT 11.7 INR 1.0 APTT 31 Sodium 134 L Potassium 3.8 Chloride 99 Carbon Dioxide 24 BUN 22 H Creatinine 0.98 Estimated GFR > 60.0 BUN/Creatinine Ratio 22.4 H Glucose 95 Hemoglobin A1c Calcium 9.2 Magnesium Total Bilirubin 0.6 AST 33 ALT 22 Alkaline Phosphatase 64 Total Creatine Kinase 154 CK-MB (CK-2) 2.41 H CK-MB (CK-2) Rel Index 1.6 Troponin I < 0.012 Total Protein 8.2 Albumin 4.9 Globulin 3.3 Albumin/Globulin Ratio 1.5 Triglycerides Cholesterol LDL Cholesterol, Calc HDL Cholesterol Urine RBC Urine WBC Ur Squamous Epith Cells Urine Bacteria Ur Culture Indicated? U Opiates 300ng/mL cut Ur Oxycodone Screen Urine Methadone Screen Ur Barbiturates Screen U Tricyclic Antidepress Ur Phencyclidine Scrn Ur Amphetamines Screen U Methamphetamines Scrn Ur MDMA Scrn (Ecstasy) U Benzodiazepines Scrn Urine Cocaine Screen U Marijuana (THC) Screen Ethyl Alcohol < 10 SARS-CoV-2 (PCR) 06/01/21 06/01/21 06/01/21 17:15 17:50 18:50 WBC RBC Hgb Hct MCV MCH MCHC RDW Plt Count Neut % (Auto) Lymph % (Auto) [place] % (Auto) Eos % (Auto) Baso % (Auto) Neut # (Auto) Lymph # (Auto) [place] # (Auto) Eos # (Auto) Baso # (Auto) PT INR APTT Sodium Potassium Chloride Carbon Dioxide BUN Creatinine Estimated GFR BUN/Creatinine Ratio Glucose Hemoglobin A1c 5.2 Calcium Magnesium Total Bilirubin AST ALT Alkaline Phosphatase Total Creatine Kinase CK-MB (CK-2) CK-MB (CK-2) Rel Index Troponin I Total Protein Albumin Globulin Albumin/Globulin Ratio Triglycerides Cholesterol LDL Cholesterol, Calc HDL Cholesterol Urine RBC None seen Urine WBC 0-1/hpf Ur Squamous Epith Cells 0-1 /hpf Urine Bacteria None seen Ur Culture Indicated? Cult not indicated U Opiates 300ng/mL cut Negative Ur Oxycodone Screen Negative Urine Methadone Screen Negative Ur Barbiturates Screen Negative U Tricyclic Antidepress Negative Ur Phencyclidine Scrn Negative Ur Amphetamines Screen Negative U Methamphetamines Scrn Negative Ur MDMA Scrn (Ecstasy) Negative U Benzodiazepines Scrn Negative Urine Cocaine Screen Negative U Marijuana (THC) Screen Negative Ethyl Alcohol SARS-CoV-2 (PCR) 06/01/21 06/02/21 06/02/21 21:20 05:45 05:45 WBC 8.6 RBC 4.79 Hgb 14.3 Hct 41.8 MCV 87.3 MCH 29.9 MCHC 34.3 RDW 13.8 Plt Count 219 Neut % (Auto) 85.8 H Lymph % (Auto) 9.0 L [place] % (Auto) 4.7 Eos % (Auto) 0.1 L Baso % (Auto) 0.4 Neut # (Auto) 7400 H Lymph # (Auto) 800 L [place] # (Auto) 400 Eos # (Auto) 0 Baso # (Auto) 0 PT INR APTT Sodium 132 L Potassium 4.2 Chloride 101 Carbon Dioxide 20 L BUN 18 Creatinine 0.91 Estimated GFR > 60.0 BUN/Creatinine Ratio 19.8 Glucose 91 Hemoglobin A1c Calcium 8.9 Magnesium 1.8 Total Bilirubin AST ALT Alkaline Phosphatase Total Creatine Kinase CK-MB (CK-2) CK-MB (CK-2) Rel Index Troponin I Total Protein Albumin Globulin Albumin/Globulin Ratio Triglycerides 51 Cholesterol 268 H LDL Cholesterol, Calc 198 H HDL Cholesterol 60 Urine RBC Urine WBC Ur Squamous Epith Cells Urine Bacteria Ur Culture Indicated? U Opiates 300ng/mL cut Ur Oxycodone Screen Urine Methadone Screen Ur Barbiturates Screen U Tricyclic Antidepress Ur Phencyclidine Scrn Ur Amphetamines Screen U Methamphetamines Scrn Ur MDMA Scrn (Ecstasy) U Benzodiazepines Scrn Urine Cocaine Screen U Marijuana (THC) Screen Ethyl Alcohol SARS-CoV-2 (PCR) Negative PFSH Medical History Chronic dryness of both eyes CVA (cerebral vascular accident) 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) Hyperlipidemia Intracranial tumor (07/04/14) Kidney stone Laceration of right thumb Osteonecrosis Transient cerebral ischemia (03/10/17) Surgical History History of craniotomy Status post laminectomy Family History Brother Age: 35 Mental health problem Father Age: 79 Seizure Stroke Social History household members: spouse and children Smoking Status: Never smoker alcohol intake: never Assessment & Plan Assessment & Plan narrative: Pardeep Ziegler is a 55 year old male with a prior history of a ependymoma, hemmorhagic CVA, and a most recent TIA in 2017 will be admitted for further management and treatment of an acute CVA which has affected mainly his speech center. 1. Acute CVA presnent on admission * continue telemetery, PT/OT/speech therapies * continue DAPT with asa and plavix. * MR stroke was negative for acute infarcts, however suspect this to be a false negative given constellation of tongue deviation, facial droop, lack of new mass on imaging, and ataxia which all correlate with an acute infarct. * TTE pending. * given his history other possible etiologies include a metabolic encephalopathy given fever, complex migraine (less likely), less likely seizure. 2. Hypertension, acute with an admission bp of 151/95, present on admission * allowed for permissive HTN, able to resume home BP meds today. 3. HLD * Atorvastatin 80 mg po at bedtime 4. Fever - developed fever to 100.9 on admission yesterday. No further fever. UA unremarkable and no other signs / symptoms of infection. Will check CXR and monitor for now off antibiotics. VTE Prophylaxis: Wells risk score 0 Enoxaparin 40 mg subQ once daily? Bilateral SCDs Patient is admitted to the inpatient service due to the severity of disease, risks of further disease progression and this stay is expected to exceed 2 midnights. Dispo: PT and OT recommending acute rehab given deficits, family would like home. Re-assess tomorrow with therapies to see if improvement and if acute is needed or discharge home with aggressive outpatient PT. Code status: Full Code as discussed with the patient who identifies his , Maggie his surrogate and POA. [X] I have utilized all available immediate resources to obtain, update, or review of the patient's current medications Time Spent With Patient Critical Care time: I spent a total of [] minutes of critical care time on this patient's care today; this time is exclusive of procedural time. Quality Stroke Contraindication Not Initiating IV-Tpa: Contraindicated Symptom Onset Unknown: Yes VTE Deep Vein Thrombosis/Pulmonary Embolism Present on Admission: No
--- NOTE | 2021-06-02 16:27 | CM.DANOTE ---
DCP/Assessment: Reviewed chart. Patient is a 55yr old male admitted to [facility] with stroke like symptoms. PCP listed is Dr. Whipple. Primary payor is 1)Paper.likristie Barahona. Met with patient and spouse/Naya at bedside explained CM/SW role. Patient alert and oriented but clearly has facial droop. Patient reports that he resides with his spouse and children in [place]. 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 Patient reports that he was diagnosed with brain CA in 2008. Patient underwent surgery and chemotherapy and since then he reports that he has been okay. Patient currently undergoing stroke work up and appears in very good spirits. Notified patient and spouse what was recommended by therapy. At this time patient and family would like more medical information prior to make decision about going to acute rehab. Other options discussed were home health and outpatient therapy. TRADER requested therapy check in with patient again today while spouse at bedside. Left note for provider to do the same. Both therapy and provider rounded today when she was not there. She is the primary caregiver. P: Pending. [facility] Discharge Planning/Care Management CM Discharge Assessment Start: 06/02/21 16:22 Freq: Status: Active Protocol: Document 06/02/21 16:22 [facility] (Rec: 06/02/21 16:27 [facility] [id number]) Discharge Planning Assessment Assigned Helicopter Engineer NARCISO George Contact Information Maggie Ziegler (mother) # [phone] Advance Directives? No: family is working on it. History Provided By Patient,Significant Other, Medical Record Prior Living Arrangements House Household Members spouse,children Type of transporation used prior to Relies on Others admit Independent with ADL's Yes Is patient alert and oriented? Yes Caregiver for Another Yes Barriers to Discharge No Comment At this time d/c needs pending . Patient seen by therapy and all 3 disiplines recommend Acute Rehabiliation. Transportation Arrangement Family Referrals Initiated Other Additional Comment Sent referral to both [facility] and [facility] acute rehabiliation for review. Whiteboard Updated in Patient Room with Yes name and ext. # of Helicopter Engineer Review Status In Process Next Review Type Continued Stay Review
--- NOTE | 2021-06-02 16:27 | PT-IP ANOTE ---
Met with pt and his spouse ~1530 today and discussed discharge recommendation for acute rehab. Pt ambulated with spouse present and spouse states gait is close to baseline but notices pt dragging right foot more than usual. Pt remains uncoordinated with right hand and needs assist to tie his shoes. Will continue to follow.
[2021-06-02] MEDS: ATORVASTATIN 20 MG TABLET 80 MG PO (21:02)
[2021-06-02] MEDS: SODIUM CHLORIDE 0.9% FLUSH 10 ML IV (21:12)
[2021-06-03] VITALS (7 sets, daily range): BP systolic 114–130; BP diastolic 71–84; PULSE 60–66; RESP 16–20; TEMP 36.8–37.7; O2SAT 94–98
[2021-06-03 05:41] LABS: Add Manual Diff / Slide Review NO; Basophils Absolute Auto 0 /uL (0-100); Basophils Percent Auto 0.5 % (0-2); Eosinophils Absolute Auto 0 /uL (0-450); Eosinophils Percent Auto 0.6 % (2-4); Hematocrit 40.2 % (41-53); Hemoglobin 13.8 g/dL (13.5-17.5); Lymphocytes Absolute Auto 1700 /uL (1100-4500); Lymphocytes Percent Auto 23.4 % (25-40); Mean Corpuscular HGB Conc 34.4 % (30-36); Mean Corpuscular Hemoglobin 29.8 PG (26-34); Mean Corpuscular Volume 86.7 fL (80-100); Monocytes Absolute Auto 800 /uL (0-900); Monocytes Percent Auto 11.7 % (3-14); Neutrophils Absolute Auto 4500 /uL (1500-7000); Neutrophils Percent Auto 63.8 % (50-75); Platelet Count 197 X10^3/uL (150-400); Red Blood Cell Count 4.64 X10^6/uL (4.5-5.9); Red Cell Distribution Width 13.5 % (11.6-14.8); White Blood Cell Count 7.1 X10^3/uL (4.5-11.0)
[2021-06-03 05:46] LABS: Magnesium 1.8 mg/dL (1.6-2.3)
[2021-06-03] MEDS: SODIUM CHLORIDE 0.9% FLUSH 10 ML IV ×2 (10:25→20:39)
[2021-06-03] MEDS: ASPIRIN EC 81 MG TABLET PO (10:25)
[2021-06-03] MEDS: ENOXAPARIN 40 MG/0.4 ML SYRINGE SUBCUT (10:25)
[2021-06-03] MEDS: CLOPIDOGREL 75 MG TABLET PO (10:25)
--- NOTE | 2021-06-03 10:48 | SLP.IPNOTE ---
06/02/21: Saw pt for cog eval with SLUMS. The evaluation and can be found in the pt's Patient Care. [facility] will not let me write a note. Below are the findings: Pt scored 24/30 on the SLUMS indicating mild cognitive deficit. He was able to state the day and date as well as the state of [place]. He remembered all 5 words, correctly completed mental math (he was observed to use his fingers in calculation. He named 9 animals, reversed up to 4digit number and correctly answered 3/4 questions after hearing a short story. Pt had difficulty with clock drawing in tht the complex directions confused him. He was given the directions twice and started to write hour markers with the # of seconds for each hour (i.e., he wrote 50 at the spot for the 10 and still placed a 10 under it). The time was correct, but the hands did not originate from the center of the telida.
--- NOTE | 2021-06-03 10:52 | PT.IPTN ---
Current Diagnoses Cerebral infarction, unspecified (06/01/21) Physical Therapy Treatment Note M2 PT-IP Current Condition Start: 06/02/21 09:04 Freq: NEEDED Status: Active Protocol: Document 06/02/21 10:58 AW (Rec: 06/02/21 11:45 AW [id number]) Physical Therapy Current Condition Current Condition Evaluation Date 06/02/21 Treatment Diagnosis CVA vs TIA, R-side weakness; impaired mobility and gait Onset Date 06/01/21 M3 PT-IP Subjective Start: 06/02/21 09:04 Freq: NEEDED Status: Active Protocol: Document 06/03/21 10:22 [place] (Rec: 06/03/21 12:18 [place] [id number]) Subjective Physical Therapy Visit Type Type Treatment Note Visit Start Time 10:22 Visit Stop Time 10:52 Total Visit Minutes 30 Number of SNUFF GRINDER AND SCREENER Visits 2 Physical Therapy Visit Comments Patient Comments Pt is willing to participate with PT M4 PT-IP Mobility and Gait Start: 06/02/21 09:04 Freq: NEEDED Status: Active Protocol: Document 06/03/21 10:22 [place] (Rec: 06/03/21 12:18 [place] [id number]) PT-Bed Mobility Assessment Supine to Sit Supine to Sit Independent Sit to Supine Sit to Supine Independent Scooting Scooting to Edge of Bed Independent PT-Transfer Assessment Sit to and From Stand Sit to and from Stand Standby Assistance,Contact Guard Assistance,Use of Upper Extremities Equipment Transfer Assistive Device None,Gait Belt Orthotic/Prosthetic Devices or Brace: No Transfers Transfer Destination Bed Transfer Technique Pt ambulated w/o AD Transfer Ability Level of Assist Standby Assistance Comments Mobility Comments Pt in bed upon arrival and able to sit up and scoot EOB independently, SBA to [facility] for sit<>stand. Pt then performed 2x10 bilateral heel raises and to raises w/ counter support for balance, 1x10 mini squats, [address], NBOS balance 30 seconds eyes open followed by 30 seconds eyes closed, tandem stance 30 sec eyes open w/ LOB did not complete eyes closed, step forward w/ mini lunge x10 each side, 10x forward, side, backward (star taps). Pt then ambulated 500 [address] hallway CGA w/ cues for heel toe walking and knee flexion and avoiding circumduction w/ RLE. Pt returned to room and got back into bed, left in bed w/ all needs in reach. Gait Assessment Gait Gait Assistance Required: Standby Assistance,Contact Guard Assist Distance (Feet) 500 Assistive Devices Assistive Device None,Gait Belt Orthotic/Prosthetic Devices or Brace: No Gait Deviations General Gait Pattern Ataxic,Decreased Stride Length ,Decreased Feet Clearance,Wide Based Gait Factors Limiting Gait Function Factors Limiting Gait Function Decreased Sensation,Decreased Strength,Incoordination,Poor Balance,Poor Safety Awareness Comments Gait Comments Please refer to mobility section for details. Stair Climbing Assessment Evaluation Level of Assist On Stairs Contact Guard Assistance,1 Person Assistance Devices Stair Climbing Assistive Devices Right Railing Technique/Endurance Stair Climbing Direction Ascend and Descend Stair Climbing Technique Step Over Step Number of Steps Climbed 3 Stair Climbing Set # Repetitions (reps) 3 Comments Stair Climbing Comments Pt ascended/descended 9 total steps w/ R rail and step over step pattern CGA w/o LOB. PT-Balance Assessment Sitting Balance and Reactions Static Sitting Balance Ability Normal Dynamic Sitting Balance Ability Good Standing Balance and Reactions Static Standing Balance Ability Good Dynamic Standing Balance Ability Fair Device Used no AD Comments Other Balance Tests/Deviations/Treatment Proprioceptive and balance : exercises as listed above. M5 PT-IP Objective Assessments Start: 06/02/21 09:04 Freq: NEEDED Status: Active Protocol: Document 06/02/21 10:58 AW (Rec: 06/02/21 12:09 AW [id number]) Orientation Orientation/Cognition Level of Alertness Confusional State Orientation Name,Month,Place,Situation Language Function Ability Garbled Speech Safety Awareness Decreased Safety Awareness Gross Range of Motion Upper Extremity ROM Assessment Within Functional Limits Lower Extremity ROM Assessment Within Functional Limits Strength Upper Extremity Strength Assessment Right Impaired Hand medical reimbursement specialist strength 1 grade < left which pt states is >baseline impairment Lower Extremity Strength Assessment Left Impaired Hip 4+/5 Knee 5/5 Ankle 3+/5 DF Comments Strength Comments Pt reports pre-existing L foot drop Coordination Assessment Gross Coordination Gross Coordination Impaired Assessment Finger to Nose Test Minimal Impairment Pronation/Supination Test Moderate Impairment Foot Tapping Test Minimal Impairment Coordination Comments Pt missed targets >1 cm on finger to nose testing EO and EC. Unable to complete rapid pronation/supination without RUE lag. Sensation Assessment Sensation Gross Sensation Right LE Impaired Proprioception (Position) Impaired Comments Sensation Comments Pt has poor RLE coordination in gait. Muscle Tone Muscle Tone WNL Yes Other Assessments Other Other Assessments Pt has right facial droop and slurred speech. M6 PT-IP Treatment Start: 06/02/21 09:04 Freq: NEEDED Status: Active Protocol: Document 06/03/21 10:22 KS (Rec: 06/03/21 12:18 KS [id number]) Physical Therapy Treatment Education Education Provided Safety Other Treatments Other Treatment Performed Heel Raises Toe Raises Marching in place NBOS EO,EC Tandem stance EO Mini Squats Step forward and back to middle w/ and w/o mini lunge/ weight shift Star taps (forward, side, back ) M7 PT-IP Assessment and Plan Start: 06/02/21 09:04 Freq: NEEDED Status: Active Protocol: Document 06/03/21 10:22 KS (Rec: 06/03/21 12:18 KS [id number]) PT Summary Assessment and Plan Potential Rehabilitation Potential Good Status of Condition at Evaluation Evolving Summary Impairments Strength,Balance,Coordination, Sensation,Cognition,Transfers, Gait Assessment Summary Pt continues to have good tolerance for acitivity and willingly participates in all exercises. Pt seemingly w/ increased stability today and able to perform all exercises well w/ only difficulty balancing in tandem stance. Ambulated 500 ft w/ cues for heel toe walking, knee flexion , and avoiding RLE circumduction. Pt ascended/ descended 9 total steps w/ R rail CGA. Will continue to progress balance, gait, and proprioceptive awareness. Pt will benefit from acute rehab but at minimum should seek outpatient stroke rehab to optimize recovery. Goals Transfer Goal Independent Gait Goal Independent Gait Distance 500 Other Goals - up/down 7 steps with R rail ascending SBA Days to Meet Goals 8 Frequency of Treatment Frequency Of Treatment Twice a Day Treatment Plan Physical Therapy Treatment Plan Transfer Training,Gait Training,Therapeutic Exercise, Balance Retraining,Discharge Planning,Neuromuscular Re-ed, Coordination Retraining Other Recommendations and Next Treatment Complete DGI or FGA. Gait Focus training and dynamic balance interventions. NBOS, tandem stand w/ head turns Recommendations To Nursing Amount of Assist Needed 1 Person Assist Discharge Recommendations PT Discharge Recommendations Home with Assistance,Acute Rehab,Outpatient PT Other Discharge Recommendations acute rehab vs home with OP PT Transportation Needs at Discharge Private Vehicle
--- NOTE | 2021-06-03 11:27 | ST.IPTN ---
Visit Care Team Role Provider Type Richie Whipple MD Primary Care Provider Physician Address: [address] [place] [address], [id number] Rafy Barkley MD Family Provider Physician Address: [address] [place] [address], [id number] Elizabeth Patterson DO Emergency Provider Physician Referring Provider Address: [address] [place] [address], [id number] KAILYN Sifuentes Admit Provider Physician Attending Provider Address: [address] [place] [address], [id number] COMPUTER COMPOSITOR Treatment Note COMPUTER COMPOSITOR Treatment Note Start: 06/03/21 11:13 Freq: Status: Active Protocol: Document 06/03/21 11:14 ZS (Rec: 06/03/21 11:27 ZS [id number]) Speech Pathology Treatment Note Session Time Visit Start Time 10:15 Visit Stop Time 10:30 Total Visit Minutes 15 Setting Treatment Setting Acute Care Visit Type Note Type Treatment Note Next Note Type Next Note Type Treatment Note General Information Patient History Pardeep Ziegler is a 55 year old male with a prior history of a ependymoma, hemmorhagic CVA, and a most recent TIA in 2017 . He was admitted for further management and treatment of an acute CVA which has affected mainly his speech center. Subjective Identification Type Name,ID Wristband Identification Reconciled With Medical Record Observations/Patient Presentation Pt was reclined in bed when COMPUTER COMPOSITOR arrived. He was agreeable to participate in therapy activities. Chief Complaint(s) Cognitive Objective Short Term Goals Pt will be able to recall information presented to him in the news, problems presented to him. Pt will be able to follow complicated directions to complete ADLs Treatment Activities Targeted following 2-step verbal directions. Discussed impact and pt concerns. Assessment Patient Response to Treatment Excellent Rehab Potential Excellent Impairments Identified Articulation,Dysarthria Progress Towards Goals Excellent Progress Assessment of Overall Progress Improving Assessment of Improvement The pt followed complex 2-step directions accurately in 7/8 opportunities. Initial difficulty noted with square vs rectangle, though he identified his error without support. Pt stated all rectangles are squares after identifying he had shaded in the incorrect shape. Given verbal feedback, pt corrected his error. He restated directions accurately before following them and asked questions to confirm details of directions. Pt indicated he has not noticed difficulty with following directions, though is concerned about his speech production, indicating his speech is slow and imprecise. Reviewed with Patient Goals,Progress Being Made Patient/Caregiver Understanding Excellent Plan Therapeutic Contents Oral Motor Training Provided Patient/Caregiver Instruction Plan of Care,Questions/ Concerns Therapy Recommendations Continue with Current Program
[2021-06-03] MEDS: ACETAMINOPHEN 325 MG TABLET 650 MG PO ×2 (12:39→18:31)
--- NOTE | 2021-06-03 14:18 | PT.IPTN ---
Current Diagnoses Cerebral infarction, unspecified (06/01/21) Physical Therapy Treatment Note M2 PT-IP Current Condition Start: 06/02/21 09:04 Freq: NEEDED Status: Active Protocol: Document 06/02/21 10:58 AW (Rec: 06/02/21 11:45 AW [id number]) Physical Therapy Current Condition Current Condition Evaluation Date 06/02/21 Treatment Diagnosis CVA vs TIA, R-side weakness; impaired mobility and gait Onset Date 06/01/21 M3 PT-IP Subjective Start: 06/02/21 09:04 Freq: NEEDED Status: Active Protocol: Document 06/03/21 13:50 KS (Rec: 06/03/21 14:53 KS [id number]) Subjective Physical Therapy Visit Type Type Treatment Note Visit Start Time 13:50 Visit Stop Time 14:18 Total Visit Minutes 28 Number of CUSTOMER SUCCESS ASSOCIATE Visits 3 Physical Therapy Visit Comments Patient Comments Pt is willing to participate with PT M4 PT-IP Mobility and Gait Start: 06/02/21 09:04 Freq: NEEDED Status: Active Protocol: Document 06/03/21 13:50 KS (Rec: 06/03/21 14:53 KS [id number]) PT-Bed Mobility Assessment Supine to Sit Supine to Sit Independent Sit to Supine Sit to Supine Independent Scooting Scooting to Edge of Bed Independent PT-Transfer Assessment Sit to and From Stand Sit to and from Stand Standby Assistance,Contact Guard Assistance,Use of Upper Extremities Equipment Transfer Assistive Device None,Gait Belt Orthotic/Prosthetic Devices or Brace: No Transfers Transfer Destination Bed Transfer Technique Pt ambulated w/o AD Transfer Ability Level of Assist Standby Assistance Comments Mobility Comments Pt in bed upon arrival and agreeable to working w/ therapy. Independent for sup<> sit and scooting EOB. SBA to CGA for sit<>stand w/o AD. Pt then ambulated ~450 [address] w/ CGA and cues for knee flexion, heel toe walking , and avoiding circumduction w ./ RLE. Pt returned to room and completed NBOS balance w/ headturns L,R,U,D. Followed by tandem stance w/ headturns L, R,U,D. LOB w/ L and R headturns during tandem stance but able to grab countertop for support. Pt then attempted SLS, but required countertop for support. Pt completed marching in place, heel and toe raises, forward mini lunges and mini squats, 10 sit <>stand w/o UE and finger taps to improve dexterity. Pt returned to bed and left in bed w/ all needs in reach. Gait Assessment Gait Gait Assistance Required: Standby Assistance,Contact Guard Assist Distance (Feet) 450 Assistive Devices Assistive Device None,Gait Belt Orthotic/Prosthetic Devices or Brace: No Gait Deviations General Gait Pattern Ataxic,Decreased Stride Length ,Decreased Feet Clearance,Wide Based Gait Factors Limiting Gait Function Factors Limiting Gait Function Decreased Sensation,Decreased Strength,Incoordination,Poor Balance,Poor Safety Awareness Comments Gait Comments Please refer to mobility section for details. PT-Balance Assessment Comments Other Balance Tests/Deviations/Treatment Proprioceptive and balance : exercises as listed above. M5 PT-IP Objective Assessments Start: 06/02/21 09:04 Freq: NEEDED Status: Active Protocol: Document 06/02/21 10:58 AW (Rec: 06/02/21 12:09 AW [id number]) Orientation Orientation/Cognition Level of Alertness Confusional State Orientation Name,Month,Place,Situation Language Function Ability Garbled Speech Safety Awareness Decreased Safety Awareness Gross Range of Motion Upper Extremity ROM Assessment Within Functional Limits Lower Extremity ROM Assessment Within Functional Limits Strength Upper Extremity Strength Assessment Right Impaired Hand mill operator helper strength 1 grade < left which pt states is >baseline impairment Lower Extremity Strength Assessment Left Impaired Hip 4+/5 Knee 5/5 Ankle 3+/5 DF Comments Strength Comments Pt reports pre-existing L foot drop Coordination Assessment Gross Coordination Gross Coordination Impaired Assessment Finger to Nose Test Minimal Impairment Pronation/Supination Test Moderate Impairment Foot Tapping Test Minimal Impairment Coordination Comments Pt missed targets >1 cm on finger to nose testing EO and EC. Unable to complete rapid pronation/supination without RUE lag. Sensation Assessment Sensation Gross Sensation Right LE Impaired Proprioception (Position) Impaired Comments Sensation Comments Pt has poor RLE coordination in gait. Muscle Tone Muscle Tone WNL Yes Other Assessments Other Other Assessments Pt has right facial droop and slurred speech. M6 PT-IP Treatment Start: 06/02/21 09:04 Freq: NEEDED Status: Active Protocol: Document 06/03/21 13:50 KS (Rec: 06/03/21 14:53 KS [id number]) Physical Therapy Treatment Education Education Provided Safety Other Treatments Other Treatment Performed Heel Raises Toe Raises Marching in place NBOS LRUD head turns Tandem stance head turns LRUD SLS Mini Squats Step forward and back to middle w/ and w/o mini lunge/ weight shift Sit<>stands w/o UE Finger taps Dysmetria M7 PT-IP Assessment and Plan Start: 06/02/21 09:04 Freq: NEEDED Status: Active Protocol: Document 06/03/21 13:50 KS (Rec: 06/03/21 14:53 KS [id number]) PT Summary Assessment and Plan Potential Rehabilitation Potential Good Status of Condition at Evaluation Evolving Summary Impairments Strength,Balance,Coordination, Sensation,Cognition,Transfers, Gait Assessment Summary Pt continues to have good tolerance for acitivity is eager to participate. Continued progression of balance and proprioceptive exercises, pt tolerated well w / increased difficulty in tandem stance w/ head turns. Ambulated 450 ft w/ cues for heel toe walking, knee flexion , and avoiding RLE circumduction. Pt performed finger to thumb and finger to nose dysmetria exercises w/ increased difficulty using RUE . Will continue to progress balance, gait, and proprioceptive awareness. Pt will benefit from acute rehab but at minimum should seek outpatient stroke rehab to optimize recovery. Goals Transfer Goal Independent Gait Goal Independent Gait Distance 500 Other Goals - up/down 7 steps with R rail ascending SBA Days to Meet Goals 8 Frequency of Treatment Frequency Of Treatment Twice a Day Treatment Plan Physical Therapy Treatment Plan Transfer Training,Gait Training,Therapeutic Exercise, Balance Retraining,Discharge Planning,Neuromuscular Re-ed, Coordination Retraining Other Recommendations and Next Treatment Complete DGI or FGA. Gait Focus training and dynamic balance interventions. NBOS, tandem stand w/ head turns Recommendations To Nursing Amount of Assist Needed 1 Person Assist Discharge Recommendations PT Discharge Recommendations Home with Assistance,Acute Rehab,Outpatient PT Other Discharge Recommendations acute rehab vs home with OP PT Transportation Needs at Discharge Private Vehicle
--- NOTE | 2021-06-03 15:09 | CM.DPC ---
DCP/continued: Reviewed chart. Current therapy recommendation is acute rehab. [facility] SERVICES SPECIALIST spoke with Rehana at [facility] today. Rehana reports that patient looks like an excellent candidate. PARK SERVICES SPECIALIST met with patient today re: plan. At this time patient prefers to go home with outpatient therapy but agreeable to consider short acute care rehabilitation stay. Patient reports that if he were to go to acute rehab he would like to stay close by. Therefore, PARK SERVICES SPECIALIST called Rehana requesting that she start authorization process. Patient aware and agreeable. P: Acute rehab at [facility] vs. Home with outpatient therapy. Left Rehana's card in room for patient to give to spouse to call acute rehabilitation if they had any questions. NARCISO George
--- NOTE | 2021-06-03 15:36 | OT.IP.TRT ---
Current Diagnoses Cerebral infarction, unspecified (06/01/21) Occupational Therapy Treatment Note M2 OT-IP Current Condition Start: 06/02/21 12:47 Freq: Status: Active Protocol: Document 06/02/21 12:47 CGR (Rec: 06/02/21 13:10 CGR [id number]) Occupational Therapy Current Condition Current Condition Evaluation Date 06/02/21 Treatment Diagnosis R sided facial droop, slurred speech Diagnosis Onset Date 06/01/21 M3 OT- IP Subjective and Pain Start: 06/02/21 12:47 Freq: Status: Active Protocol: Document 06/03/21 15:57 CGR (Rec: 06/03/21 16:05 CGR [id number]) OT- Subjective Occupational Therapy Visit Type Type Progress Note Visit Start Time 14:40 Visit Stop Time 15:36 Total Visit Minutes 56 Notes Pt's spouse entered the room about half way through the session. Discussed need for acute rehab and both pt and were in agreement. OT Pain Assessment Pain When Pain Assessed At Rest Pain Present Pain Present Denied Pain M4 OT- IP ADL's Start: 06/02/21 12:47 Freq: Status: Active Protocol: Document 06/02/21 12:47 CGR (Rec: 06/02/21 13:10 CGR [id number]) OT [id number] Comments OT Self-Feeding Comments Not meal time OT ADL-Grooming General Evaluation Grooming Ability Standby Assistance Comments OT Grooming Comments washed hands with SBA but difficulty using the soap and the automatic water faucet OT ADL-Oral Care Comments Oral Care Comments Not performed, pt states he performed this AM OT ADL-Dressing General Eval Lower Body Dressing Ability Moderate Assistance Areas Needing Assistance Socks Comments OT Dressing Comments Pt had significant difficulty donning his sock d/t poor coordination of the R hand OT ADL-Toileting Comments OT Toileting Comments Not performed OT ADL-Bathing Comments OT Bathing Comments Not performed M5 OT- IP IADL's Start: 06/02/21 12:47 Freq: Status: Active Protocol: Document 06/02/21 12:47 CGR (Rec: 06/02/21 13:10 CGR [id number]) OT-Instrumental Activities of Daily Living Deficits IADL Deficits Identified Deficits Home Safety Awareness Awareness of Need for Assistance at Home Decreased Awareness Ability to Problem Solve Emergency Unable to Problem Solve Situations Medication Management Medication Management Comments Concerns regarding pt's ability to perform safely Money Management Money Management Comments Concerns regarding pt's ability to perform safely Meal Preparation Meal Preparation Comments Concerns regarding pt's ability to perform safely Accounts Manager Accounts Manager Comments Concerns regarding pt's ability to perform safely Driving Driving Comments Pt does not drive at baseline M6 OT- IP Functional Cognition Start: 06/02/21 12:47 Freq: Status: Active Protocol: Document 06/03/21 15:57 CGR (Rec: 06/03/21 16:05 CGR [id number]) Cognitive Factors Limiting Selfcare Function Cognitive Ability Level of Alertness Alert Cognitive Tests MOCA Pt participated in the MOCA scoring a 23/30. Pt had particular trouble with visuospatial/executive functioning tasks and naming. Pt named the lion as a parrot, and the rhino as a pig. Pt also missed 2 of the delayed recall words. Cognitive Comments Cognitive Assessment Comments Concerns regarding pt's higher level cognitive abilities given SLUMS score with ST and now MOCA score with this freelance writer. Pt would benefit from acute therapy services to help address deficits. M7 OT- IP Mobility and Balance Start: 06/02/21 12:47 Freq: Status: Active Protocol: Document 06/03/21 15:57 CGR (Rec: 06/03/21 16:05 CGR [id number]) OT- Bed Mobility Assessment Supine to Sit Supine to Sit Assist Standby Assistance Scooting Scooting to Edge of Bed Standby Assistance OT-Transfer Assessment Sit to and From Stand Sit to and from Stand Standby Assistance Transfers Transfer Ability Standby Assistance Technique Transfer Destination Bed,Chair Transfer Technique Stand Step Pivot Devices Transfer Assistive Devices Gait Belt Comments Mobility Comments Pt still with wide base of support and stiff gait. OT- Balance Assessment Sitting Balance and Reactions Static Sitting Balance Ability Normal Dynamic Sitting Balance Ability Good M8 OT- IP Objective Assessments Start: 06/02/21 12:47 Freq: Status: Active Protocol: Document 06/02/21 12:47 CGR (Rec: 06/02/21 13:10 CGR [id number]) OT Gross Range of Motion Upper Extremity Range of Motion Assessment Within Functional Limits OT Strength Upper Extremity Strength Assessment Within Functional Limits Comments Strength Comments 4+/5 throughout OT- Coordination Assessment Upper Extremity Finger to Nose Test Right UE Impaired Finger Tapping Test Right UE Impaired Comments Coordination Comments Pt with significantly delayed fine motor on the right hand and also inability to consistently touch the tip of his nose. OT-Muscle Tone Assessment Muscle Tone WNL Yes OT Sensation Assessment Edema Edema Absent M9 OT- IP Assessment and Plan Start: 06/02/21 12:47 Freq: Status: Active Protocol: Document 06/03/21 15:57 CGR (Rec: 06/03/21 16:05 CGR [id number]) OT Summary Assessment and Plan Potential Rehabilitation Potential Excellent Analytic Complexity at Evaluation Moderate Summary OT Impairments Balance,Coordination, Functional Cognition, Functional Mobility,Self- Feeding,Grooming,Dressing, Toileting,Bathing,Toilet Transfers,Shower Transfers Progress Towards Goals Slow Progress due to Cognition Assessment Summary Pt presents as a moderate complexity evaluation s/p admit for stoke like symptoms. Pt demonstrates deficits to fined and gross motor control of his right hand, cognition/ problem solving, functional mobility, and balance. Pt would benefit from acute rehab for deficits as he has good endurance. Performed MOCA with a score of 23/30 on this date and performed R hand gross motor tasks reaching and fine motor tasks using his computer . Pt demonstrated significant difficulty with the use of his computer and was unable to type using his R hand or accurately use his mouse using his R hand. Goals Self-Feeding Goal Independent Grooming Goal Independent Dressing Goal Independent Toileting Goal Independent Bathing Goal Independent Toilet Transfer Goal Independent Shower Transfer Goal Independent OT-Other Goals improve R hand fine/gross motor for ADLs without assist or extra time. Days to Meet Goals 20 Frequency of Treatment Frequency Of Treatment Once a Day Treatment Plan OT Treatment Plan ADL Training,Functional Cognition Training,Functional Mobility,Patient/Family Education,Discharge Planning Other Treatment Recommendations and Next R hand coordination Treatment Focus Discharge Recommendations OT Discharge Recommendations Acute Rehab Transportation Needs at Discharge Private Vehicle
--- NOTE | 2021-06-03 18:46 | P.PN_ITS ---
Subjective Subjective Date Patient Seen: 06/03/21 Time Patient Seen: 18:47 Interval history: This is a 55 year old male with complex PMH of brain cancer with ICH after surgery and prior TIA admitted with dysarthria, facial droop, and imbalance which started 2 days prior to admission. Continues to have deficits on exam today, MRI negative but highly suspect false negative. He did slightly better with therapies today, no fever or chills, feels well today. Exam Vital Signs (past 8 hours): - 06/03/21 11:23 06/03/21 16:23 Temperature 98.7 F 98.6 F Pulse Rate 63 62 Respiratory Rate 18 20 Blood Pressure 115/72 130/83 Pulse Oximetry 96 98 Oxygen Delivery Method Nasal Cannula Oxygen Flow Rate 0 Narrative Exam Narrative: General:? Patient is well developed and well nourished, in no distress at this time. HEENT:? Normocephalic, atraumatic, extraocular muscles intact, oral pharynx is clear and mucous membranes are moist. Neck: supple and symmetric, trachea is midline, no cervical adenopathy. Chest:? Normal AP diameter and contour without kyphoscoliosis, no tachypnea, equal chest rise bilaterally. Lungs:? CTA b/l no wheezing rhonchi or rales. Cardio:?RRR no m/r/g. Abdomen: S NT ND. No CVA tenderness. Musculoskeletal:? Muscle strength and tone are equal within normal limits, no deformity. Extremities: No edema or joint effusions. No cyanosis or clubbing. Skin:? Pale,? Warm to touch,dry and intact without rashes, ulcerations or petechiae.? Neuro:? Alert and orientated x3,?RUE +5/5 strength. + facial droop and tongue deviation to the R. slight improvement today. reported R sided ataxia with PT as well, heel to reyna is unremarkable. cognition much diminished from baseline per OT evaluations. Psych:? Patient has a well-kept appearance, appropriate affect, mental status attitude thought context and judgment are appropriate for age. Objective Labs Result Diagrams: 06/03/21 05:17 06/02/21 05:45 Labs: Laboratory Results - last 24 hr 06/03/21 06/03/21 05:17 05:17 WBC 7.1 RBC 4.64 Hgb 13.8 Hct 40.2 L MCV 86.7 MCH 29.8 MCHC 34.4 RDW 13.5 Plt Count 197 Neut % (Auto) 63.8 D Lymph % (Auto) 23.4 L [place] % (Auto) 11.7 Eos % (Auto) 0.6 L Baso % (Auto) 0.5 Neut # (Auto) 4500 Lymph # (Auto) 1700 [place] # (Auto) 800 Eos # (Auto) 0 Baso # (Auto) 0 Magnesium 1.8 PFSH Medical History Chronic dryness of both eyes CVA (cerebral vascular accident) 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) Hyperlipidemia Intracranial tumor (07/04/14) Kidney stone Laceration of right thumb Osteonecrosis Transient cerebral ischemia (03/10/17) Surgical History History of craniotomy Status post laminectomy Family History Brother Age: 35 Mental health problem Father Age: 79 Seizure Stroke Social History household members: spouse and children Smoking Status: Never smoker alcohol intake: never Assessment & Plan Assessment & Plan narrative: Pardeep Ziegler is a 55 year old male with a prior history of a ependymoma, hemmo rhagic CVA, and a most recent TIA in 2017 will be admitted for further management and treatment of an acute CVA which has affected mainly his speech center. 1. Acute CVA, present on admission * continue telemetery, PT/OT/speech therapies * continue DAPT with asa and plavix. * MR stroke was negative for acute infarcts, however suspect this to be a false negative given constellation of tongue deviation, facial droop, lack of new mass on imaging, and ataxia which all correlate with an acute infarct. * TTE unremarkable with normal EF. * given his history other possible etiologies include a metabolic encephalopathy given fever, complex migraine (less likely), less likely seizure. 2. Hypertension, acute with an admission bp of 151/95, present on admission * allowed for permissive HTN, able to resume home BP meds and is controlled today. 3. HLD * Atorvastatin 80 mg po at bedtime 4. Fever ?- developed fever to 100.9 on admission. No further fevers. UA unremarkable and no other signs / symptoms of infection. Checks x-ray was unremarkable and if he remains afebrile off of antibiotics possible discharge home tomorrow. - may be related to acute CVA. Patient is admitted to the inpatient service due to the severity of disease, risks of further disease progression and this stay is expected to exceed 2 midnights. Dispo: PT and OT recommending acute rehab given deficits, family would like home . Re-assess tomorrow with therapies to see if improvement. Also will continue to monitor for fever given initial presentation. Discharge to home or acute rehab tomorrow planned. Code status: Full Code as discussed with the patient who identifies his , Maggie his surrogate and POA. [X] I have utilized all available immediate resources to obtain, update, or review of the patient's current medications Time Spent With Patient Critical Care time: I spent a total of [] minutes of critical care time on this patient's care today; this time is exclusive of procedural time. Quality Stroke Contraindication Not Initiating IV-Tpa: Contraindicated Symptom Onset Unknown: Yes VTE Deep Vein Thrombosis/Pulmonary Embolism Present on Admission: No
[2021-06-03] MEDS: ATORVASTATIN 20 MG TABLET 80 MG PO (20:37)
[2021-06-04] VITALS (7 sets, daily range): BP systolic 116–130; BP diastolic 54–80; PULSE 56–76; RESP 15–18; TEMP 36–37.2; O2SAT 95–98
[2021-06-04] MEDS: TRAMADOL 50 MG TABLET PO (05:49)
[2021-06-04 05:58] LABS: Add Manual Diff / Slide Review NO; Basophils Absolute Auto 0 /uL (0-100); Basophils Percent Auto 0.8 % (0-2); Eosinophils Absolute Auto 100 /uL (0-450); Eosinophils Percent Auto 1.7 % (2-4); Hematocrit 40.8 % (41-53); Hemoglobin 14.2 g/dL (13.5-17.5); Lymphocytes Absolute Auto 1200 /uL (1100-4500); Lymphocytes Percent Auto 22.1 % (25-40); Mean Corpuscular HGB Conc 34.9 % (30-36); Mean Corpuscular Hemoglobin 29.8 PG (26-34); Mean Corpuscular Volume 85.4 fL (80-100); Monocytes Absolute Auto 600 /uL (0-900); Neutrophils Absolute Auto 3600 /uL (1500-7000); Neutrophils Percent Auto 65.4 % (50-75); Platelet Count 192 X10^3/uL (150-400); Red Blood Cell Count 4.78 X10^6/uL (4.5-5.9); White Blood Cell Count 5.5 X10^3/uL (4.5-11.0)
[2021-06-04 06:03] LABS: Magnesium 1.9 mg/dL (1.6-2.3)
[2021-06-04] MEDS: ASPIRIN EC 81 MG TABLET PO (09:19)
[2021-06-04] MEDS: SODIUM CHLORIDE 0.9% FLUSH 10 ML IV (09:19)
[2021-06-04] MEDS: ENOXAPARIN 40 MG/0.4 ML SYRINGE SUBCUT (09:19)
[2021-06-04] MEDS: CLOPIDOGREL 75 MG TABLET PO (09:19)
--- NOTE | 2021-06-04 10:37 | P.DS_ITS ---
History of Present Illness History of Present Illness Date Patient Seen: 06/04/21 Time Patient Seen: 10:38 Chief complaint: Possible Stroke/HX Brain Cancer Narrative: Per KAILYN Sifuentes: Pardeep Ziegler is a pleasant 55 y.o. 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 Patient has residual deficits primarily occasionally dropping items.? He began to drop items more frequently over the past day or so and the patient was last seen normal at 15 30 on 06/01/2021.? He had waxing and waning of his speech improving and then deteriorating improving and then deteriorating again.? It was difficult to appreciate the actual onset of when this started he and his presented to [facility] emergency department he was outside the window for tPA.? He also took a low- dose aspirin when the symptoms started.? He does deny headache, fever sweats or chills, chest pain, shortness of breath, abdominal pain, dysuria, diarrhea constipation, numbing or tingling of his upper or lower extremities. Brain CT indicated progressive cortical calcification in the left cerebellar hemisphere with a small focus of calcification along the anterior margin of the left temporal lobe resection bed.? It did not identify any acute hemorrhage.? And also noted chronic stable changes of the left temporoparietal resection, I same metric enlargement of the left lateral ventricle an overlying left parietal lobe cortical volume loss.? He also has a small right parietal santa hole present.? It also noted ?areas of encephalomalacia in the left parietal and temporal lobes likely related to prior surgical changes...? Curvilinear cortical calcifications within the left cerebellar hemisphere redemonstrated with associated indistinct enhancement following contrast administration.? These were increased prior to the previous study of 2017.? In the conclusions it did not fully exclude a neoplastic process but was considered to be less likely and recommended a contrast-enhanced MRI.? Patient's presenting blood pressure was 151/95 and is relatively unchanged, he is afebrile, heart rate is 76, respiratory rate 16, oxygen saturation of 96% on room air, he weighs 82 kg with a BMI of 25.5.? CBC is unremarkable, sodium 134, chemistries otherwise are unremarkable, urinalysis is negative for UTI as well as urine toxicology and COVID-19 PCR is negative. Discharge Providers Provider Date of admission: 06/01/21 21:11 Discharge Date: 06/04/21 Primary care physician: Richie Whipple MD Consults: 06/01/21 22:11 Consult to Occupational Therapy Evaluate & Treat Comment: Physician Instructions: Evaluate and treat Consult to Physical Therapy Evaluate & Treat Comment: Physician Instructions: Evaluate and Treat 06/01/21 22:12 Consult to Speech Therapy Evaluate & Treat Comment: Physician Instructions: Evaluate and treat Discharge provider: Farrukh Griffin, Exam Vital Signs (past 8 hours): - 06/04/21 04:27 06/04/21 09:21 Temperature 96.8 F L 98.4 F Pulse Rate 56 L 62 Respiratory Rate 15 17 Blood Pressure 126/54 L 130/80 Pulse Oximetry 98 96 Oxygen Delivery Method Room Air Oxygen Flow Rate 0 Objective Labs Result Diagrams: 06/04/21 05:40 06/02/21 05:45 Labs: Laboratory Results - last 24 hr 06/04/21 06/04/21 05:40 05:40 WBC 5.5 RBC 4.78 Hgb 14.2 Hct 40.8 L MCV 85.4 MCH 29.8 MCHC 34.9 RDW 13.0 Plt Count 192 Neut % (Auto) 65.4 Lymph % (Auto) 22.1 L Lyon % (Auto) 10.0 Eos % (Auto) 1.7 L Baso % (Auto) 0.8 Neut # (Auto) 3600 Lymph # (Auto) 1200 Lyon # (Auto) 600 Eos # (Auto) 100 Baso # (Auto) 0 Magnesium 1.9 PFSH Medical History Chronic dryness of both eyes CVA (cerebral vascular accident) 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) Hyperlipidemia Intracranial tumor (07/04/14) Kidney stone Laceration of right thumb Osteonecrosis Transient cerebral ischemia (03/10/17) Surgical History History of craniotomy Status post laminectomy Family History Brother Age: 35 Mental health problem Father Age: 79 Seizure Stroke Social History household members: spouse and children Smoking Status: Never smoker alcohol intake: never Discharge Plan Discharge Plan Patient Disposition: Home Provider Discharge Comment: you were admitted to the hospital with a probable stroke. MRI was negative, but symptoms are highly suggestive of stroke. You were started on medications to reduce risk of subsequent strokes in the future. Please follow up with PCP as soon as possible, you should have aggressive outpatient physical therapy. Discharge orders & Medications Prescriptions: New clopidogrel 75 mg Tablet 75 mg PO DAILY 30 Days Qty: 30 0RF aspirin 81 mg Tablet,Delayed Release (Dr/Ec) 81 mg PO DAILY 30 Days Qty: 30 0RF atorvastatin 80 mg tablet 80 mg PO BEDTIME 30 Days Qty: 30 0RF No Action No Known Home Medications 0RF Follow up/Referrals: Richie Whipple MD [Primary Care Provider] - Diet/Activity/Treatments Diet: Diet as Tolerated Activity: As tolerated Discharge Data Primary Care Provider: Richie Whipple Quality Stroke Contraindication Not Initiating IV-Tpa: Contraindicated Symptom Onset Unknown: Yes VTE Deep Vein Thrombosis/Pulmonary Embolism Present on Admission: No
--- NOTE | 2021-06-04 11:30 | OT.IP.TRT ---
Current Diagnoses Cerebral infarction, unspecified (06/01/21) Occupational Therapy Treatment Note M2 OT-IP Current Condition Start: 06/02/21 12:47 Freq: Status: Active Protocol: Document 06/02/21 12:47 CGR (Rec: 06/02/21 13:10 CGR [id number]) Occupational Therapy Current Condition Current Condition Evaluation Date 06/02/21 Treatment Diagnosis R sided facial droop, slurred speech Diagnosis Onset Date 06/01/21 M3 OT- IP Subjective and Pain Start: 06/02/21 12:47 Freq: Status: Active Protocol: Document 06/04/21 12:55 CGR (Rec: 06/04/21 13:03 CGR [id number]) OT- Subjective Occupational Therapy Visit Type Type Progress Note Visit Start Time 10:59 Visit Stop Time 11:30 Total Visit Minutes 31 Notes Pt's entered during session. OT Pain Assessment Pain When Pain Assessed At Rest Pain Present Pain Present Denied Pain M4 OT- IP ADL's Start: 06/02/21 12:47 Freq: Status: Active Protocol: Document 06/02/21 12:47 CGR (Rec: 06/02/21 13:10 CGR [id number]) OT [id number] Comments OT Self-Feeding Comments Not meal time OT ADL-Grooming General Evaluation Grooming Ability Standby Assistance Comments OT Grooming Comments washed hands with SBA but difficulty using the soap and the automatic water faucet OT ADL-Oral Care Comments Oral Care Comments Not performed, pt states he performed this AM OT ADL-Dressing General Eval Lower Body Dressing Ability Moderate Assistance Areas Needing Assistance Socks Comments OT Dressing Comments Pt had significant difficulty donning his sock d/t poor coordination of the R hand OT ADL-Toileting Comments OT Toileting Comments Not performed OT ADL-Bathing Comments OT Bathing Comments Not performed M5 OT- IP IADL's Start: 06/02/21 12:47 Freq: Status: Active Protocol: Document 06/02/21 12:47 CGR (Rec: 06/02/21 13:10 CGR [id number]) OT-Instrumental Activities of Daily Living Deficits IADL Deficits Identified Deficits Home Safety Awareness Awareness of Need for Assistance at Home Decreased Awareness Ability to Problem Solve Emergency Unable to Problem Solve Situations Medication Management Medication Management Comments Concerns regarding pt's ability to perform safely Money Management Money Management Comments Concerns regarding pt's ability to perform safely Meal Preparation Meal Preparation Comments Concerns regarding pt's ability to perform safely Abatement Worker Abatement Worker Comments Concerns regarding pt's ability to perform safely Driving Driving Comments Pt does not drive at baseline M6 OT- IP Functional Cognition Start: 06/02/21 12:47 Freq: Status: Active Protocol: Document 06/03/21 15:57 CGR (Rec: 06/03/21 16:05 CGR [id number]) Cognitive Factors Limiting Selfcare Function Cognitive Ability Level of Alertness Alert Cognitive Tests MOCA Pt participated in the MOCA scoring a 23/30. Pt had particular trouble with visuospatial/executive functioning tasks and naming. Pt named the lion as a parrot, and the rhino as a pig. Pt also missed 2 of the delayed recall words. Cognitive Comments Cognitive Assessment Comments Concerns regarding pt's higher level cognitive abilities given SLUMS score with ST and now MOCA score with this justowriter operator. Pt would benefit from acute therapy services to help address deficits. M7 OT- IP Mobility and Balance Start: 06/02/21 12:47 Freq: Status: Active Protocol: Document 06/03/21 15:57 CGR (Rec: 06/03/21 16:05 CGR [id number]) OT- Bed Mobility Assessment Supine to Sit Supine to Sit Assist Standby Assistance Scooting Scooting to Edge of Bed Standby Assistance OT-Transfer Assessment Sit to and From Stand Sit to and from Stand Standby Assistance Transfers Transfer Ability Standby Assistance Technique Transfer Destination Bed,Chair Transfer Technique Stand Step Pivot Devices Transfer Assistive Devices Gait Belt Comments Mobility Comments Pt still with wide base of support and stiff gait. OT- Balance Assessment Sitting Balance and Reactions Static Sitting Balance Ability Normal Dynamic Sitting Balance Ability Good M8 OT- IP Objective Assessments Start: 06/02/21 12:47 Freq: Status: Active Protocol: Document 06/02/21 12:47 CGR (Rec: 06/02/21 13:10 CGR [id number]) OT Gross Range of Motion Upper Extremity Range of Motion Assessment Within Functional Limits OT Strength Upper Extremity Strength Assessment Within Functional Limits Comments Strength Comments 4+/5 throughout OT- Coordination Assessment Upper Extremity Finger to Nose Test Right UE Impaired Finger Tapping Test Right UE Impaired Comments Coordination Comments Pt with significantly delayed fine motor on the right hand and also inability to consistently touch the tip of his nose. OT-Muscle Tone Assessment Muscle Tone WNL Yes OT Sensation Assessment Edema Edema Absent M9 OT- IP Assessment and Plan Start: 06/02/21 12:47 Freq: Status: Active Protocol: Document 06/04/21 12:55 CGR (Rec: 06/04/21 13:03 CGR [id number]) OT Summary Assessment and Plan Potential Rehabilitation Potential Excellent Analytic Complexity at Evaluation Moderate Summary OT Impairments Balance,Coordination, Functional Cognition, Functional Mobility,Self- Feeding,Grooming,Dressing, Toileting,Bathing,Toilet Transfers,Shower Transfers Progress Towards Goals Slow Progress due to Cognition Assessment Summary Pt presents as a moderate complexity evaluation s/p admit for stoke like symptoms. Pt demonstrates deficits to fined and gross motor control of his right hand, cognition/ problem solving, functional mobility, and balance. Pt would benefit from acute rehab for deficits as he has good endurance. Pt writing an email when OT entered. Multiple errors in the email noted and pointed out to patient. Pt corrected with extra time and guidance. Pt then participated in r hand exercises doing fine and gross motor tasks like stacking small cups and picking up small pieces of paper. Pt's R hand motor control does appear to be improved from yesterday but is still a problem for him with his computer mouse and typing. Pt will continue to benefit from therapy services. Goals Self-Feeding Goal Independent Grooming Goal Independent Dressing Goal Independent Toileting Goal Independent Bathing Goal Independent Toilet Transfer Goal Independent Shower Transfer Goal Independent OT-Other Goals improve R hand fine/gross motor for ADLs without assist or extra time. Days to Meet Goals 10 Frequency of Treatment Frequency Of Treatment Once a Day Treatment Plan OT Treatment Plan ADL Training,Functional Cognition Training,Functional Mobility,Patient/Family Education,Discharge Planning Other Treatment Recommendations and Next R hand coordination, cognition Treatment Focus Discharge Recommendations OT Discharge Recommendations Acute Rehab Transportation Needs at Discharge Private Vehicle
--- NOTE | 2021-06-04 12:10 | SLP.IPNOTE ---
Attempted to see pt at 11:45 to follow-up on speech therapy exercises provided yesterday. Pt was with PT, will attempt again later today.
--- NOTE | 2021-06-04 12:20 | PT.IPTN ---
Current Diagnoses Cerebral infarction, unspecified (06/01/21) Physical Therapy Treatment Note M2 PT-IP Current Condition Start: 06/02/21 09:04 Freq: NEEDED Status: Active Protocol: Document 06/04/21 11:30 SP (Rec: 06/04/21 19:27 SP [id number]) Physical Therapy Current Condition Current Condition Evaluation Date 06/02/21 Treatment Diagnosis CVA vs TIA, R-side weakness; impaired mobility and gait Onset Date 06/01/21 M3 PT-IP Subjective Start: 06/02/21 09:04 Freq: NEEDED Status: Active Protocol: Document 06/04/21 11:30 SP (Rec: 06/04/21 19:27 SP [id number]) Subjective Physical Therapy Visit Type Type Treatment Note Visit Start Time 11:30 Visit Stop Time 12:20 Total Visit Minutes 50 Notes present, initiated CGT: donned gait belt sitting in chair. And provided physical support at times when safe during tx. Number of CLINIC MGR Visits 4 Physical Therapy Visit Comments Patient Comments Pt is pleasant and motiviate to work with therapy. Therapy Pain Assessment Pain Present Pain Present Denied Pain M4 PT-IP Mobility and Gait Start: 06/02/21 09:04 Freq: NEEDED Status: Active Protocol: Document 06/04/21 11:30 SP (Rec: 06/04/21 19:27 SP [id number]) PT-Transfer Assessment Sit to and From Stand Sit to and from Stand Contact Guard Assistance, Minimal Assistance,1 Person Assistance,Use of Upper Extremities Equipment Transfer Assistive Device None,Gait Belt Orthotic/Prosthetic Devices or Brace: No Transfers Transfer Destination Chair Transfer Technique pt ambulated w/o AD, w/ SPC, w / FWW Transfer Ability Level of Assist Contact Guard Assistance, Minimal Assistance,1 Person Assistance,Use of Upper Extremities Comments Mobility Comments Education with , donned gait belt. Pt stood at front chair CG- Min A for trunk stability. Pt ambulated around room to door and back to chair WBOS, cued for R knee flexion and heel toe, sways to L and hip hike on R Min A fro trunk stability via CLINIC MGR without AD, pt contact end bed if near for support unconsciously. CLINIC MGR provided SPC, improved CGA with 5%A during turns, continues to require cuing for RLE foot clearance, progresed to hallway to stairs, complete 3 stairs x3 B HR, step to patterning with cuing for motor planning division superintendent LLE ascend and RLE descend, with fair demonstration required cuing but able to complete and Min A for trunk stability. Instructed step over step patterning, tried but needs LE contact same step but alternating, unable to complete 1 foot each step patterning with demontration. Pt sat in w/c for rest break. Sit>stand from w/c CGA, Min A for steading balance. Pt walked back to room CGA using FWW back to room, w/c follow for safety via . Pt continued little trunk sway but self recovery, cued for R LE knee/ hip flexion to consistantly allow clearance. When pt arrived in room parked FWW at side bed then proceeded to walk hanging onto end bed. CLINIC MGR stopped pt, provided safety education unstable walking without AD and giving Min A for stability support, as pt stationary balance contact end of bed frame, BLE shaky unsteady and pelvis sway forward backward unaware. Pt stated if I just can go home and ride his bike can get better with centering core. CLINIC MGR assisted pt back to chair without AD Min A with trunk slight sway, cue R foot clearance, core and hip flexion for stability. CLINIC MGR spent extra time education on decreased safety awareness and pt not aware of unsteady trunk giving min support for reduce falling. Hospitalist observing from hallway and entered room provided further education, with feedback to pat and all in agreement a good rehab candidate with noted observation of supoprt required during gait in room. Before left room. pt was stated understood that agreeable to attending acute rehab for further strength, balance with PT and further OT and Speech with continued to increase functional mobility and thought processing support education. Pt had call light and all needs in reach before left with chair alarmed. in room before left. Gait Assessment Gait Gait Assistance Required: Contact Guard Assist,Minimum Assistance,1 Person Assist Distance (Feet) 140 Assistive Devices Assistive Device None,Gait Belt,Straight Cane, Front Wheeled Walker Orthotic/Prosthetic Devices or Brace: No Gait Deviations General Gait Pattern Antalgic,Decreased Stride Length,Decreased Feet Clearance,Lateral Trunk Lean, Wide Based Gait Factors Limiting Gait Function Factors Limiting Gait Function Decreased Activity Tolerance, Decreased Strength,Difficulty Following Directions,Poor Balance,Poor Safety Awareness Comments Gait Comments See mobility comments. Stair Climbing Assessment Evaluation Level of Assist On Stairs Contact Guard Assistance, Minimal Assistance,1 Person Assistance Devices Stair Climbing Assistive Devices Left Railing,Right Railing Technique/Endurance Stair Climbing Direction Ascend and Descend Stair Climbing Technique Step Over Step,Step to Step Number of Steps Climbed 3 Stair Climbing Set # Repetitions (reps) 3 Comments Stair Climbing Comments see mobilitty comments PT-Balance Assessment Sitting Balance and Reactions Static Sitting Balance Ability Normal Dynamic Sitting Balance Ability Good Standing Balance and Reactions Static Standing Balance Ability Fair Dynamic Standing Balance Ability Poor Device Used no AD, Fair SPC and FWW M5 PT-IP Objective Assessments Start: 06/02/21 09:04 Freq: NEEDED Status: Active Protocol: Document 06/02/21 10:58 AW (Rec: 06/02/21 12:09 AW [id number]) Orientation Orientation/Cognition Level of Alertness Confusional State Orientation Name,Month,Place,Situation Language Function Ability Garbled Speech Safety Awareness Decreased Safety Awareness Gross Range of Motion Upper Extremity ROM Assessment Within Functional Limits Lower Extremity ROM Assessment Within Functional Limits Strength Upper Extremity Strength Assessment Right Impaired Hand buckle and button maker strength 1 grade < left which pt states is >baseline impairment Lower Extremity Strength Assessment Left Impaired Hip 4+/5 Knee 5/5 Ankle 3+/5 DF Comments Strength Comments Pt reports pre-existing L foot drop Coordination Assessment Gross Coordination Gross Coordination Impaired Assessment Finger to Nose Test Minimal Impairment Pronation/Supination Test Moderate Impairment Foot Tapping Test Minimal Impairment Coordination Comments Pt missed targets >1 cm on finger to nose testing EO and EC. Unable to complete rapid pronation/supination without RUE lag. Sensation Assessment Sensation Gross Sensation Right LE Impaired Proprioception (Position) Impaired Comments Sensation Comments Pt has poor RLE coordination in gait. Muscle Tone Muscle Tone WNL Yes Other Assessments Other Other Assessments Pt has right facial droop and slurred speech. M6 PT-IP Treatment Start: 06/02/21 09:04 Freq: NEEDED Status: Active Protocol: Document 06/04/21 11:30 SP (Rec: 06/04/21 19:27 SP [id number]) Physical Therapy Treatment Education Education Provided Safety M7 PT-IP Assessment and Plan Start: 06/02/21 09:04 Freq: NEEDED Status: Active Protocol: Document 06/04/21 11:30 SP (Rec: 06/04/21 19:27 SP [id number]) PT Summary Assessment and Plan Potential Rehabilitation Potential Good Status of Condition at Evaluation Evolving Summary Impairments Strength,Balance,Coordination, Sensation,Cognition,Transfers, Gait Progress Towards Goals Slow Progress due to Activity Tolerance,Slow Progress - Other Assessment Summary Pt is pleasant and motivated individual, unaware of imbalance and support requried during mobiltiy, Min A during gait no AD, CG- 10%A w/ SPC and CG- 5%A at times w/ fWW. Stationary stance contact item in room Min A, unsteady BLE w / trunk sways. Pt agreeable to acute rehab to progress strength, balance, gait toward functional mobility. Pt is the working adult in family and would benefit from skilled services to improve outcomes for toward independence to OF. Goals Transfer Goal Independent Gait Goal Independent Gait Distance 500 Other Goals - up/down 7 steps with R rail ascending SBA Days to Meet Goals 8 Frequency of Treatment Frequency Of Treatment Twice a Day Treatment Plan Physical Therapy Treatment Plan Transfer Training,Gait Training,Therapeutic Exercise, Balance Retraining,Discharge Planning,Neuromuscular Re-ed, Coordination Retraining Other Recommendations and Next Treatment Complete DGI or FGA. Gait Focus training and dynamic balance interventions. NBOS, tandem stand w/ head turns w/ fWW> SPC for safety initially. Recommendations To Nursing Amount of Assist Needed 1 Person Assist Discharge Recommendations PT Discharge Recommendations Home with / Assist Available,Acute Rehab, Outpatient PT Other Discharge Recommendations acute rehab vs home with OP PT Equipment Needed for Home Before If going home will require FWW Discharge . Transportation Needs at Discharge Private Vehicle
[2021-06-04] MEDS: ACETAMINOPHEN 325 MG TABLET 650 MG PO ×3 (12:29→23:27)
--- NOTE | 2021-06-04 15:29 | CM.DPC ---
DCP Cont: Per MD, pt is medically stable but recommendation is still Acute Rehab as home is somewhat unsafe. Per PT/OT/ST, pt still would need CGA for all mobility ambulation at home and discussed pt's unsteady gait and recommendation of Acute Rehab. SW called [facility] Rehana and she confirms no insurance auth obtained yet and she called and was told that they are still reviewing and were short staffed so likely no decision yet today. SW met bedside with pt and spouse and they confirm they are now both agreeable to Acute Rehab and SW updated them that still awaiting insurance auth and likely may d/c tomorrow once determination made. SW discussed transport and that would likely be POV or private pay cabulance and spouse confirms she will make herself available to provide transport to Acute Rehab. SW updated RN, group burner machine, and MD and discharge order will be cancelled today since Acute Rehab best d/c option at this time. Plan: SW to follow closely for insurance auth for [facility] Acute rehab and spouse to transport. NARCISO Oconnor
--- NOTE | 2021-06-04 16:54 | PT.IPTN ---
Current Diagnoses Cerebral infarction, unspecified (06/01/21) Physical Therapy Treatment Note M2 PT-IP Current Condition Start: 06/02/21 09:04 Freq: NEEDED Status: Active Protocol: Document 06/04/21 16:38 SP (Rec: 06/05/21 07:31 SP [id number]) Physical Therapy Current Condition Current Condition Evaluation Date 06/02/21 Treatment Diagnosis CVA vs TIA, R-side weakness; impaired mobility and gait Onset Date 06/01/21 M3 PT-IP Subjective Start: 06/02/21 09:04 Freq: NEEDED Status: Active Protocol: Document 06/04/21 16:38 SP (Rec: 06/05/21 07:31 SP [id number]) Subjective Physical Therapy Visit Type Type Treatment Note Visit Start Time 16:38 Visit Stop Time 16:54 Total Visit Minutes 16 Number of CHIEF GROWTH OFFICER Visits 5 Physical Therapy Visit Comments Patient Comments Pt is pleasant and motiviate to work with therapy. Therapy Pain Assessment Pain Present Pain Present Denied Pain M4 PT-IP Mobility and Gait Start: 06/02/21 09:04 Freq: NEEDED Status: Active Protocol: Document 06/04/21 16:38 SP (Rec: 06/05/21 07:31 SP [id number]) PT-Transfer Assessment Sit to and From Stand Sit to and from Stand Contact Guard Assistance,1 Person Assistance,Use of Upper Extremities Equipment Transfer Assistive Device Gait Belt,Front Wheeled Walker Orthotic/Prosthetic Devices or Brace: No Transfers Transfer Destination Chair Transfer Technique ambulated w/ FWW Transfer Ability Level of Assist Contact Guard Assistance, Minimal Assistance,1 Person Assistance,Use of Upper Extremities Comments Mobility Comments Pt seated in chair when arrived, in room. donned gait belt insitting. Pt Sit>stand, CGA cues for redirecting positioning pushing from chair arms not FWW. Pt progressed ambulation into hallway approx 1 laps 160 ft in hallway dynamic gait w/ FWW assessment for safety with FWW if I, CGA with Min A at times for trunk sway support recovery during head turns cues, cues for R hip and knee flexion foot clearance, noted decreased R DF and hip hiking strategies used to for clearance at time continues to have lurch RLE advancement but states demonstrated before admission but challenges balance at this time due to RLE neglect at times. Pt slows down to turn slight trunk sway but self recovery. Pt returned to room front chair. Instructed standing marching w / FWW contact BUE, due to LOB Min A recovery, retro w/ light contact counter. Instructed marching to encourage hip/knee flexion RLE , slight sway but self recovery CGA. Pt returned to chair, Pt reaches back with LUE, cued for RLE fully back and reach back with RUE due to noted neglect for improved stability and slower safe descent. Pt stated Oh yes, I need to use my RUE more, trying to remember. Pt had call light and all needs in reach before left. Chair alarm donned. in room. Gait Assessment Gait Gait Assistance Required: Contact Guard Assist,Minimum Assistance,1 Person Assist Distance (Feet) 140 Assistive Devices Assistive Device None,Gait Belt,Front Wheeled Walker Orthotic/Prosthetic Devices or Brace: No Gait Deviations General Gait Pattern Antalgic,Decreased Stride Length,Decreased Feet Clearance,Lateral Trunk Lean, Wide Based Gait Factors Limiting Gait Function Factors Limiting Gait Function Decreased Activity Tolerance, Decreased Strength,Difficulty Following Directions,Poor Balance,Poor Safety Awareness Comments Gait Comments See mobility comments. PT-Balance Assessment Sitting Balance and Reactions Static Sitting Balance Ability Normal Dynamic Sitting Balance Ability Good Standing Balance and Reactions Static Standing Balance Ability Fair Dynamic Standing Balance Ability Fair Device Used w/ FWW Comments Other Balance Tests/Deviations/Treatment Head turns with gait using FWW : , CG-5%A due to wt shift sways , decreased RLE foot clearance recovery. M5 PT-IP Objective Assessments Start: 06/02/21 09:04 Freq: NEEDED Status: Active Protocol: Document 06/02/21 10:58 AW (Rec: 06/02/21 12:09 AW [id number]) Orientation Orientation/Cognition Level of Alertness Confusional State Orientation Name,Month,Place,Situation Language Function Ability Garbled Speech Safety Awareness Decreased Safety Awareness Gross Range of Motion Upper Extremity ROM Assessment Within Functional Limits Lower Extremity ROM Assessment Within Functional Limits Strength Upper Extremity Strength Assessment Right Impaired Hand product safety tester strength 1 grade < left which pt states is >baseline impairment Lower Extremity Strength Assessment Left Impaired Hip 4+/5 Knee 5/5 Ankle 3+/5 DF Comments Strength Comments Pt reports pre-existing L foot drop Coordination Assessment Gross Coordination Gross Coordination Impaired Assessment Finger to Nose Test Minimal Impairment Pronation/Supination Test Moderate Impairment Foot Tapping Test Minimal Impairment Coordination Comments Pt missed targets >1 cm on finger to nose testing EO and EC. Unable to complete rapid pronation/supination without RUE lag. Sensation Assessment Sensation Gross Sensation Right LE Impaired Proprioception (Position) Impaired Comments Sensation Comments Pt has poor RLE coordination in gait. Muscle Tone Muscle Tone WNL Yes Other Assessments Other Other Assessments Pt has right facial droop and slurred speech. M6 PT-IP Treatment Start: 06/02/21 09:04 Freq: NEEDED Status: Active Protocol: Document 06/04/21 16:38 SP (Rec: 06/05/21 07:31 SP [id number]) Physical Therapy Treatment Education Education Provided Safety Other Treatments Other Treatment Performed stand marching w/ counter initally, LOB initially, then use of FWW, sways but CGa recovery. M7 PT-IP Assessment and Plan Start: 06/02/21 09:04 Freq: NEEDED Status: Active Protocol: Document 06/04/21 16:38 SP (Rec: 06/05/21 07:31 SP [id number]) PT Summary Assessment and Plan Potential Rehabilitation Potential Good Status of Condition at Evaluation Evolving Summary Impairments Strength,Balance,Coordination, Sensation,Cognition,Transfers, Gait Progress Towards Goals Slow Progress due to Activity Tolerance,Slow Progress - Other Assessment Summary Pt is pleasant and motivated individual, unaware of imbalance and support requried during mobiltiy. CG-Min A during gait w/ FWW dynamic cuing, Stationary stance contact item in room Min A. Pt Neglect on R side during gait and transfers CG- Min A for safety cues for spacial awareness and recommended use of FWW at this time 1 person. Pt agreeable to acute rehab to progress strength, balance, gait toward functional mobility. Pt is the working adult in family and would benefit from skilled services to improve outcomes for toward independence to PLOF. Goals Transfer Goal Independent Gait Goal Independent Gait Distance 500 Other Goals - up/down 7 steps with R rail ascending SBA Days to Meet Goals 8 Frequency of Treatment Frequency Of Treatment Twice a Day Treatment Plan Physical Therapy Treatment Plan Transfer Training,Gait Training,Therapeutic Exercise, Balance Retraining,Discharge Planning,Neuromuscular Re-ed, Coordination Retraining Other Recommendations and Next Treatment Complete DGI or FGA. Gait Focus training and dynamic balance interventions. NBOS, tandem stand w/ head turns w/ fWW> SPC for safety initially. Recommendations To Nursing Amount of Assist Needed Standby Assistance Discharge Recommendations PT Discharge Recommendations Home with 05/10 Assist Available,Acute Rehab, Outpatient PT Other Discharge Recommendations acute rehab vs home with OP PT Equipment Needed for Home Before If going home will require FWW Discharge . Transportation Needs at Discharge Private Vehicle
--- NOTE | 2021-06-04 19:27 | P.PN_ITS ---
Subjective Subjective Date Patient Seen: 06/04/21 Time Patient Seen: 14:00 Interval history: This is a 55 year old male with complex PMH of brain cancer with ICH after surgery and prior TIA admitted with dysarthria, facial droop, and imbalance which started 2 days prior to admission. Continues to have deficits on exam today, MRI negative but highly suspect false negative. He did slightly better with therapies today, no fever or chills, feels well today. Plan for acute rehab. Exam Vital Signs (past 8 hours): - 06/04/21 13:41 Temperature 98.6 F Pulse Rate 76 Respiratory Rate 16 Blood Pressure 117/75 Pulse Oximetry 95 Oxygen Delivery Method Room Air Oxygen Flow Rate 0 Narrative Exam Narrative: General:? Patient is well developed and well nourished, in no distress at this time. HEENT:? Normocephalic, atraumatic, extraocular muscles intact, oral pharynx is clear and mucous membranes are moist. Neck: supple and symmetric, trachea is midline, no cervical adenopathy. Chest:? Normal AP diameter and contour without kyphoscoliosis, no tachypnea, equal chest rise bilaterally. Lungs:? CTA b/l no wheezing rhonchi or rales. Cardio:?RRR no m/r/g. Abdomen: S NT ND. No CVA tenderness. Musculoskeletal:? Muscle strength and tone are equal within normal limits, no deformity. Extremities: No edema or joint effusions. No cyanosis or clubbing. Skin:? Pale,? Warm to touch,dry and intact without rashes, ulcerations or petec hiae.? Neuro:? Alert and orientated x3,?RUE +5/5 strength. + facial droop and tongue deviation to the R. slight improvement today. reported R sided ataxia with PT as well, heel to reyna is unremarkable. cognition much diminished from baseline per OT evaluations. Psych:? Patient has a well-kept appearance, appropriate affect, mental status attitude thought context and judgment are appropriate for age. Objective Labs Result Diagrams: 06/04/21 05:40 06/02/21 05:45 Labs: Laboratory Results - last 24 hr 06/04/21 06/04/21 05:40 05:40 WBC 5.5 RBC 4.78 Hgb 14.2 Hct 40.8 L MCV 85.4 MCH 29.8 MCHC 34.9 RDW 13.0 Plt Count 192 Neut % (Auto) 65.4 Lymph % (Auto) 22.1 L [place] % (Auto) 10.0 Eos % (Auto) 1.7 L Baso % (Auto) 0.8 Neut # (Auto) 3600 Lymph # (Auto) 1200 [place] # (Auto) 600 Eos # (Auto) 100 Baso # (Auto) 0 Magnesium 1.9 PFSH Medical History Chronic dryness of both eyes CVA (cerebral vascular accident) 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) Hyperlipidemia Intracranial tumor (07/04/14) Kidney stone Laceration of right thumb Osteonecrosis Transient cerebral ischemia (03/10/17) Surgical History History of craniotomy Status post laminectomy Family History Brother Age: 35 Mental health problem Father Age: 79 Seizure Stroke Social History household members: spouse and children Smoking Status: Never smoker alcohol intake: never Assessment & Plan Assessment & Plan narrative: Pardeep Ziegler is a 55 year old male with a prior history of a ependymoma, hemmorhagic CVA, and a most recent TIA in 2017 will be admitted for further management and treatment of an acute CVA which has affected mainly his speech center. 1. Acute CVA, present on admission * continue telemetery, PT/OT/speech therapies * continue DAPT with asa and plavix. * MR stroke was negative for acute infarcts, however suspect this to be a false negative given constellation of tongue deviation, facial droop, lack of new mass on imaging, and ataxia which all correlate with an acute infarct. * TTE unremarkable with normal EF. * given his history other possible etiologies include a metabolic encephalopathy given fever, complex migraine (less likely), less likely seizure. 2. Hypertension, acute with an admission bp of 151/95, present on admission * allowed for permissive HTN, able to resume home BP meds and is controlled today. 3. HLD * Atorvastatin 80 mg po at bedtime 4. Fever ?- developed fever to 100.9 on admission. No further fevers. UA unremarkable and no other signs / symptoms of infection.? Checks x-ray was unremarkable. ?- may be related to acute CVA. Patient is admitted to the inpatient service due to the severity of disease, risks of further disease progression and this stay is expected to exceed 2 midnights. Dispo: PT and OT recommending acute rehab given deficits, family now agreeable. Pending insurance authorization. Code status: Full Code as discussed with the patient who identifies his , Maggie his surrogate and POA. Time Spent With Patient Critical Care time: I spent a total of [] minutes of critical care time on this patient's care today; this time is exclusive of procedural time. Quality Stroke Contraindication Not Initiating IV-Tpa: Contraindicated Symptom Onset Unknown: Yes VTE Deep Vein Thrombosis/Pulmonary Embolism Present on Admission: No
[2021-06-04] MEDS: ATORVASTATIN 20 MG TABLET 80 MG PO (21:08)
[2021-06-05 04:12] VITALS: BP 112/80; PULSE 60; RESP 17; TEMP 36.7; O2SAT 97
[2021-06-05] MEDS: ACETAMINOPHEN 325 MG TABLET 650 MG PO ×3 (06:19→21:38)
--- NOTE | 2021-06-05 06:32 | PC.NURSE ---
Pt complained of mild ESPINOZA, 650 mg tylenol given with good results. Pt cooperative, slept well this night.
[2021-06-05 07:20] VITALS: BP 117/76; PULSE 64; RESP 18; TEMP 36.6; O2SAT 97
--- NOTE | 2021-06-05 08:56 | PT.IPTN ---
Addendum entered and electronically signed by Jasmine Alvarado, LECT[employer] OF [place] 06/05/21 13:58: DGI 09/05 indicate fall risk. Recommending 1 person assist with use of FWW and assist of 1 person for safety during standing mobility. Original Note: Current Diagnoses Cerebral infarction, unspecified (06/01/21) Physical Therapy Treatment Note M2 PT-IP Current Condition Start: 06/02/21 09:04 Freq: NEEDED Status: Active Protocol: Document 06/05/21 08:40 SP (Rec: 06/05/21 12:18 SP [id number]) Physical Therapy Current Condition Current Condition Evaluation Date 06/02/21 Treatment Diagnosis CVA vs TIA, R-side weakness; impaired mobility and gait Onset Date 06/01/21 M3 PT-IP Subjective Start: 06/02/21 09:04 Freq: NEEDED Status: Active Protocol: Document 06/05/21 08:40 SP (Rec: 06/05/21 12:18 SP [id number]) Subjective Physical Therapy Visit Type Type Treatment Note Visit Start Time 08:40 Visit Stop Time 0856 Total Visit Minutes 16 Number of LECT[employer]ER [employer] [place] Visits 6 Physical Therapy Visit Comments Patient Comments Pt is pleasant and motiviate to work with therapy. Patient Goals Pt agreeable to going to acute rehab if able to get stronger balance for walking back to [facility]. Therapy Pain Assessment Pain Present Pain Present Denied Pain M4 PT-IP Mobility and Gait Start: 06/02/21 09:04 Freq: NEEDED Status: Active Protocol: Document 06/05/21 08:40 SP (Rec: 06/05/21 12:18 SP [id number]) PT-Transfer Assessment Sit to and From Stand Sit to and from Stand Contact Guard Assistance,1 Person Assistance,Use of Upper Extremities Equipment Transfer Assistive Device Gait Belt,Front Wheeled Walker Orthotic/Prosthetic Devices or Brace: No Transfers Transfer Destination Chair Transfer Technique ambulated w/ FWW Transfer Ability Level of Assist Contact Guard Assistance, Minimal Assistance,1 Person Assistance,Use of Upper Extremities Comments Mobility Comments Pt seated inchair when arrived . Completed sit>stand CGA, static stand CG- 5% A to put on face mask RUE took more time. Completed DGI 09/05 wtihout AD, Further distance gait in room ad to stairs a back to room w/FWW and SPC, requires CG- 5%a during gait w / Fww 5%- 25%A w/ SPC with cues for R foot cleaance and body centered. Pt will require acute rehab to progress back to PLOF strengthening. Gait Assessment Gait Gait Assistance Required: Contact Guard Assist,Minimum Assistance,1 Person Assist Distance (Feet) 140 Assistive Devices Assistive Device None,Gait Belt,Front Wheeled Walker Orthotic/Prosthetic Devices or Brace: No Gait Deviations General Gait Pattern Antalgic,Decreased Stride Length,Decreased Feet Clearance,Lateral Trunk Lean, Wide Based Gait Factors Limiting Gait Function Factors Limiting Gait Function Decreased Activity Tolerance, Decreased Strength,Difficulty Following Directions,Poor Balance,Poor Safety Awareness Comments Gait Comments See mobility comments. Stair Climbing Assessment Evaluation Level of Assist On Stairs Contact Guard Assistance, Minimal Assistance,1 Person Assistance Devices Stair Climbing Assistive Devices Left Railing,Right Railing Technique/Endurance Stair Climbing Direction Ascend and Descend Stair Climbing Technique Step Over Step,Step to Step Number of Steps Climbed 3 Stair Climbing Set # Repetitions (reps) 2 Comments Stair Climbing Comments step to alternating, unable to motor pattern receiprocal gait after instruction with cues and demonstration given. PT-Balance Assessment Sitting Balance and Reactions Static Sitting Balance Ability Normal Dynamic Sitting Balance Ability Good Standing Balance and Reactions Static Standing Balance Ability Fair Dynamic Standing Balance Ability Fair Device Used FWW, poor without AD Functional Assessments Functional Tests Dynamic Gait Index 09/05 Other Functional Tests Performed DGI 09/05: requiring support for stabililty. see details M5 PT-IP Objective Assessments Start: 06/02/21 09:04 Freq: NEEDED Status: Active Protocol: Document 06/02/21 10:58 AW (Rec: 06/02/21 12:09 AW [id number]) Orientation Orientation/Cognition Level of Alertness Confusional State Orientation Name,Month,Place,Situation Language Function Ability Garbled Speech Safety Awareness Decreased Safety Awareness Gross Range of Motion Upper Extremity ROM Assessment Within Functional Limits Lower Extremity ROM Assessment Within Functional Limits Strength Upper Extremity Strength Assessment Right Impaired Hand printer slotter helper strength 1 grade < left which pt states is >baseline impairment Lower Extremity Strength Assessment Left Impaired Hip 4+/5 Knee 5/5 Ankle 3+/5 DF Comments Strength Comments Pt reports pre-existing L foot drop Coordination Assessment Gross Coordination Gross Coordination Impaired Assessment Finger to Nose Test Minimal Impairment Pronation/Supination Test Moderate Impairment Foot Tapping Test Minimal Impairment Coordination Comments Pt missed targets >1 cm on finger to nose testing EO and EC. Unable to complete rapid pronation/supination without RUE lag. Sensation Assessment Sensation Gross Sensation Right LE Impaired Proprioception (Position) Impaired Comments Sensation Comments Pt has poor RLE coordination in gait. Muscle Tone Muscle Tone WNL Yes Other Assessments Other Other Assessments Pt has right facial droop and slurred speech. M6 PT-IP Treatment Start: 06/02/21 09:04 Freq: NEEDED Status: Active Protocol: Document 06/05/21 08:40 SP (Rec: 06/05/21 12:18 SP [id number]) Physical Therapy Treatment Education Education Provided Safety M7 PT-IP Assessment and Plan Start: 06/02/21 09:04 Freq: NEEDED Status: Active Protocol: Document 06/05/21 08:40 SP (Rec: 06/05/21 12:18 SP [id number]) PT Summary Assessment and Plan Potential Rehabilitation Potential Good Status of Condition at Evaluation Evolving Summary Impairments Strength,Balance,Coordination, Sensation,Cognition,Transfers, Gait Progress Towards Goals Slow Progress due to Activity Tolerance,Slow Progress - Other Assessment Summary Pt is pleasant and motivated individual, states more aware of support requried during mobiltiy and safest using FWW and tried to correct. CG-15%A required during DGI 09/05 assessed without AD, discussed results and stated wow I didn't realize how back but all details of scoring is correct, I do not have that balance. Pt more stated focus on R side during gait and RUE putting on mask in standing CGA, little sway. use of FWW at this time 1 person. Pt agreeable to acute rehab to progress strength, balance, gait toward functional mobility. Pt is the working adult in family and would benefit from skilled services to improve outcomes for toward independence to OF. Goals Transfer Goal Independent Gait Goal Independent Gait Distance 500 Other Goals - up/down 7 steps with R rail ascending SBA Days to Meet Goals 8 Frequency of Treatment Frequency Of Treatment Twice a Day Treatment Plan Physical Therapy Treatment Plan Transfer Training,Gait Training,Therapeutic Exercise, Balance Retraining,Discharge Planning,Neuromuscular Re-ed, Coordination Retraining Other Recommendations and Next Treatment Gait training and dynamic Focus balance interventions. NBOS, tandem stand w/ head turns w/ fWW> SPC for safety initially. Recommendations To Nursing Amount of Assist Needed 1 Person Assist Discharge Recommendations PT Discharge Recommendations Home with 05/10 Assist Available,Acute Rehab, Outpatient PT Other Discharge Recommendations acute rehab vs home with OP PT Equipment Needed for Home Before If going home will require FWW Discharge . Transportation Needs at Discharge Private Vehicle
[2021-06-05] MEDS: ENOXAPARIN 40 MG/0.4 ML SYRINGE SUBCUT (09:33)
[2021-06-05] MEDS: CLOPIDOGREL 75 MG TABLET PO (09:33)
[2021-06-05] MEDS: ASPIRIN EC 81 MG TABLET PO (09:33)
[2021-06-05] MEDS: SODIUM CHLORIDE 0.9% FLUSH 10 ML IV ×2 (09:34→20:59)
--- NOTE | 2021-06-05 11:58 | ST.IPTN ---
Visit Care Team Role Provider Type Richie Whipple MD Primary Care Provider Physician Address: [address] [place] [address], [id number] Rafy Barkley MD Family Provider Physician Address: [address] [place] [address], [id number] Elizabeth Patterson DO Emergency Provider Physician Referring Provider Address: [address] [place] [address], [id number] KAILYN Sifuentes Admit Provider Physician Attending Provider Address: [address] [place] [address], [id number] SERVER MANAGER Treatment Note SERVER MANAGER Treatment Note Start: 06/03/21 11:13 Freq: Status: Active Protocol: Document 06/05/21 11:50 ZS (Rec: 06/05/21 11:57 ZS [id number]) Speech Pathology Treatment Note Session Time Visit Start Time 11:15 Visit Stop Time 11:30 Total Visit Minutes 15 Setting Treatment Setting Acute Care Visit Type Note Type Treatment Note General Information Patient History Pardeep Ziegler is a 55 year old male with a prior history of a ependymoma, hemmorhagic CVA, and a most recent TIA in 2017 . He was admitted for further management and treatment of an acute CVA which has affected mainly his speech center. Subjective Observations/Patient Presentation Pt was sitting up in chair working on his computer upon SERVER MANAGER arrival. He reported he was on hold with a [employer] on his phone. Chief Complaint(s) Speech,Swallowing Rehab Expectation/Goals: Patient Goals Reduce pocketing in right cheek; improve speech rate and clarity Patient Knowledge/Awareness of SERVER MANAGER Role Good in Treatment Parent/Caretake Knowledge/Awareness of Good SERVER MANAGER Role in Treatment Patient/Caregiver Compliance with Home Good Exercise Program Objective Short Term Goals Pt will be able to recall information presented to him in the news, problems presented to him. Pt will be able to follow complicated directions to complete ADLs Shelter Goals Pt will tolerate regular diet texture with minimal oral residue and no overt s/sx of aspiration. Pt will demonstrate speech and communication skills sufficient to participate in medical decisions. Treatment Activities The pt listed all exercises he had been doing from memory and indicated he was on the phone with his sister earlier today and she reported his voice sounded good. Pt indicated he had no questions regarding provided exercises. Assessment Patient Response to Treatment Good Rehab Potential Excellent Impairments Identified Dysarthria,Dysphagia Progress Towards Goals Excellent Progress Assessment of Overall Progress Improving Assessment of Improvement The pt is making excellent progress. He is tolerating regular texture and thin liquids without overt s/sx of aspiration. Persists with mild oral dysphagia secondary to right side weakness resulting in oral residue pocketing in right cheek. Speech rate and precision is improving, though continues to be mildly slow and effortful. Pt is 100% intelligible. Anticipate excellent progress to continue with acute rehab. Discharging at this time as pt demonstrates independent use of provided strategies and exercises. Reviewed with Patient Goals,Progress Being Made,Home Exercise Program Patient/Caregiver Understanding Good Plan Therapeutic Contents Client Education, Intelligibility,Swallowing/ Feeding Provided Patient/Caregiver Instruction Home Exercise Program,Plan of Care,Questions/Concerns Therapy Recommendations Discharge to Home Exercise Program Reason for Discharge Pt is independent with exercises.
[2021-06-05 12:40] VITALS: BP 116/70; PULSE 67; RESP 17; TEMP 36.7; O2SAT 96
--- NOTE | 2021-06-05 13:41 | OT.IP.TRT ---
Current Diagnoses Cerebral infarction, unspecified (06/01/21) Occupational Therapy Treatment Note M2 OT-IP Current Condition Start: 06/02/21 12:47 Freq: Status: Active Protocol: Document 06/02/21 12:47 CGR (Rec: 06/02/21 13:10 CGR [id number]) Occupational Therapy Current Condition Current Condition Evaluation Date 06/02/21 Treatment Diagnosis R sided facial droop, slurred speech Diagnosis Onset Date 06/01/21 M3 OT- IP Subjective and Pain Start: 06/02/21 12:47 Freq: Status: Active Protocol: Document 06/05/21 14:02 CGR (Rec: 06/05/21 14:31 CGR [id number]) OT- Subjective Occupational Therapy Visit Type Type Progress Note Visit Start Time 13:18 Visit Stop Time 13:41 Total Visit Minutes 23 Notes Pt agreeable to shower OT Pain Assessment Pain When Pain Assessed At Rest Pain Present Pain Present Denied Pain M4 OT- IP ADL's Start: 06/02/21 12:47 Freq: Status: Active Protocol: Document 06/05/21 14:02 CGR (Rec: 06/05/21 14:31 CGR [id number]) OT [id number] Comments OT Self-Feeding Comments Not meal time OT ADL-Grooming General Evaluation Grooming Ability Standby Assistance Areas Needing Assistance Face Washing Comments OT Grooming Comments seated in chair in shower OT ADL-Oral Care Comments Oral Care Comments not performed OT ADL-Dressing General Eval Lower Body Dressing Ability Minimal Assistance Areas Needing Assistance Retrieving/Set-up of Clothing, Underpants/Brief,Socks Comments OT Dressing Comments Pt is able to don socks and underwear with extra time and vc. Pt continues to struggle with using his R hand for dressing but doesn't employ typical stratigies to assist with the difficulties. OT ADL-Toileting Comments OT Toileting Comments not performed OT ADL-Bathing Bathing Type Bathing Type Shower General Evaluation Bathing Ability Contact Guard Assistance Areas Needing Assistance Retrieving/Setting Up Items Devices Bathing Equipment Shower Chair with Arms,Grab Bars Comments OT Bathing Comments Pt was able to shower with CGA but needs cues for safety throughout the session. M5 OT- IP IADL's Start: 06/02/21 12:47 Freq: Status: Active Protocol: Document 03/21/22 12:47 CGR (Rec: 03/21/22 13:10 CGR [id number]) OT-Instrumental Activities of Daily Living Deficits IADL Deficits Identified Deficits Home Safety Awareness Awareness of Need for Assistance at Home Decreased Awareness Ability to Problem Solve Emergency Unable to Problem Solve Situations Medication Management Medication Management Comments Concerns regarding pt's ability to perform safely Money Management Money Management Comments Concerns regarding pt's ability to perform safely Meal Preparation Meal Preparation Comments Concerns regarding pt's ability to perform safely 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 Pt had particular trouble with visuospatial/executive functioning tasks and naming. Pt named the lion as a parrot, and the rhino as a pig. Pt also missed 2 of the delayed recall words. Cognitive Comments Cognitive Assessment Comments Concerns regarding pt's higher level cognitive abilities given SLUMS score with ST and now MOCA score with this residential mortgage underwriter. Pt would benefit from acute therapy services to help address deficits. M7 OT- IP Mobility and Balance Start: 06/02/21 12:47 Freq: Status: Active Protocol: Document 06/05/21 14:02 CGR (Rec: 06/05/21 14:31 CGR [id number]) OT- Bed Mobility Assessment Rolling Level of Assistance Standby Assistance Supine to Sit Supine to Sit Assist Standby Assistance Sit to Supine Sit to Supine Assist Standby Assistance Scooting Scooting to Edge of Bed Standby Assistance OT-Transfer Assessment Sit to and From Stand Sit to and from Stand Contact Guard Assistance Transfers Transfer Ability Contact Guard Assistance Technique Transfer Destination Bed,Bedside Commode,Shower Stall Transfer Technique Stand Step Pivot Devices Transfer Assistive Devices Gait Belt Comments Mobility Comments Pt mobilizes around the room with just the gait belt but with 2 small LOB that did not require physical assist to correct. Pt returned to bed at end of session. OT- Balance Assessment Sitting Balance and Reactions Static Sitting Balance Ability Normal Dynamic Sitting Balance Ability Good M8 OT- IP Objective Assessments Start: 06/02/21 12:47 Freq: Status: Active Protocol: Document 06/02/21 12:47 CGR (Rec: 06/02/21 13:10 CGR [id number]) OT Gross Range of Motion Upper Extremity Range of Motion Assessment Within Functional Limits OT Strength Upper Extremity Strength Assessment Within Functional Limits Comments Strength Comments 4+/5 throughout OT- Coordination Assessment Upper Extremity Finger to Nose Test Right UE Impaired Finger Tapping Test Right UE Impaired Comments Coordination Comments Pt with significantly delayed fine motor on the right hand and also inability to consistently touch the tip of his nose. OT-Muscle Tone Assessment Muscle Tone WNL Yes OT Sensation Assessment Edema Edema Absent M9 OT- IP Assessment and Plan Start: 06/02/21 12:47 Freq: Status: Active Protocol: Document 06/05/21 14:02 CGR (Rec: 06/05/21 14:31 CGR [id number]) OT Summary Assessment and Plan Potential Rehabilitation Potential Excellent Analytic Complexity at Evaluation Moderate Summary OT Impairments Balance,Coordination, Functional Cognition, Functional Mobility,Self- Feeding,Grooming,Dressing, Toileting,Bathing,Toilet Transfers,Shower Transfers Progress Towards Goals Slow Progress due to Cognition Assessment Summary Pt presents as a moderate complexity evaluation s/p admit for stoke like symptoms. Pt demonstrates deficits to fined and gross motor control of his right hand, cognition/ problem solving, functional mobility, and balance. Pt would benefit from acute rehab for deficits as he has good endurance. Pt agreeable to shower today. Pt states that he has been showering every night. Pt is able to perform with SBA to CGA but with poor insight into safety and his R handed deficits. Pt will continue to benefit from therapy services. Goals Self-Feeding Goal Independent Grooming Goal Independent Dressing Goal Independent Toileting Goal Independent Bathing Goal Independent Toilet Transfer Goal Independent Shower Transfer Goal Independent OT-Other Goals improve R hand fine/gross motor for ADLs without assist or extra time. Days to Meet Goals 10 Frequency of Treatment Frequency Of Treatment Once a Day Treatment Plan OT Treatment Plan ADL Training,Functional Cognition Training,Functional Mobility,Patient/Family Education,Discharge Planning Other Treatment Recommendations and Next R hand coordination, cognition Treatment Focus Discharge Recommendations OT Discharge Recommendations Acute Rehab Transportation Needs at Discharge Private Vehicle
--- NOTE | 2021-06-05 16:04 | PT.IPTN ---
Current Diagnoses Cerebral infarction, unspecified (06/01/21) Physical Therapy Treatment Note M2 PT-IP Current Condition Start: 06/02/21 09:04 Freq: NEEDED Status: Active Protocol: Document 06/05/21 08:40 SP (Rec: 06/05/21 12:18 SP [id number]) Physical Therapy Current Condition Current Condition Evaluation Date 06/02/21 Treatment Diagnosis CVA vs TIA, R-side weakness; impaired mobility and gait Onset Date 06/01/21 M3 PT-IP Subjective Start: 06/02/21 09:04 Freq: NEEDED Status: Active Protocol: Document 06/05/21 15:38 KS (Rec: 06/05/21 16:43 KS [id number]) Subjective Physical Therapy Visit Type Type Treatment Note Visit Start Time 15:38 Visit Stop Time 16:04 Total Visit Minutes 26 Number of VISUAL JOURNALIST Visits 7 Physical Therapy Visit Comments Patient Comments Pt is pleasant and motivated to work with therapy. Patient Goals Pt agreeable to going to acute rehab if able to get stronger balance for walking back to [facility]. M4 PT-IP Mobility and Gait Start: 06/02/21 09:04 Freq: NEEDED Status: Active Protocol: Document 06/05/21 15:38 KS (Rec: 06/05/21 16:43 KS [id number]) PT-Bed Mobility Assessment Supine to Sit Supine to Sit Standby Assistance Sit to Supine Sit to Supine Standby Assistance Scooting Scooting to Edge of Bed Standby Assistance PT-Transfer Assessment Sit to and From Stand Sit to and from Stand Standby Assistance,1 Person Assistance,Use of Upper Extremities Equipment Transfer Assistive Device Gait Belt,Front Wheeled Walker Orthotic/Prosthetic Devices or Brace: No Transfers Transfer Destination Bed Transfer Technique ambulated w/ FWW Transfer Ability Level of Assist Standby Assistance,Contact Guard Assistance,1 Person Assistance,Use of Upper Extremities Comments Mobility Comments Pt in bed upon arrival and agreeable to practice ambulating w/ FWW even though he does not believe he needs it. SBA for bed mobility and sit<>stand w/ FWW. Pt ambulated ~450 ft w/ FWW and gait very much improved and normalized w/ less circumduction, better balance, narrower base of support, and improved heel strike. Pts spouse states pts gait looks much improved. Returned to room and pt performed mini squats, heel raises, toe raises, mini lunge, NBOS, and tandem stance using counter for balance support. He then returned to bed and performed 1x10 bridges w/ cues to engage glutes and keep knees from collapsing together. Pt left in bed w/ spouse in room and all needs in reach. Gait Assessment Gait Gait Assistance Required: Standby Assistance,Contact Guard Assist Distance (Feet) 450 Assistive Devices Assistive Device Gait Belt,Front Wheeled Walker Orthotic/Prosthetic Devices or Brace: No Gait Deviations General Gait Pattern Antalgic,Decreased Stride Length,Decreased Feet Clearance,Lateral Trunk Lean, Wide Based Gait Factors Limiting Gait Function Factors Limiting Gait Function Decreased Activity Tolerance, Decreased Strength,Difficulty Following Directions,Poor Balance,Poor Safety Awareness Comments Gait Comments See mobility comments. PT-Balance Assessment Sitting Balance and Reactions Static Sitting Balance Ability Normal Dynamic Sitting Balance Ability Good Standing Balance and Reactions Static Standing Balance Ability Good Dynamic Standing Balance Ability Fair Device Used FWW M5 PT-IP Objective Assessments Start: 06/02/21 09:04 Freq: NEEDED Status: Active Protocol: Document 06/02/21 10:58 AW (Rec: 06/02/21 12:09 AW [id number]) Orientation Orientation/Cognition Level of Alertness Confusional State Orientation Name,Month,Place,Situation Language Function Ability Garbled Speech Safety Awareness Decreased Safety Awareness Gross Range of Motion Upper Extremity ROM Assessment Within Functional Limits Lower Extremity ROM Assessment Within Functional Limits Strength Upper Extremity Strength Assessment Right Impaired Hand review manager strength 1 grade < left which pt states is >baseline impairment Lower Extremity Strength Assessment Left Impaired Hip 4+/5 Knee 5/5 Ankle 3+/5 DF Comments Strength Comments Pt reports pre-existing L foot drop Coordination Assessment Gross Coordination Gross Coordination Impaired Assessment Finger to Nose Test Minimal Impairment Pronation/Supination Test Moderate Impairment Foot Tapping Test Minimal Impairment Coordination Comments Pt missed targets >1 cm on finger to nose testing EO and EC. Unable to complete rapid pronation/supination without RUE lag. Sensation Assessment Sensation Gross Sensation Right LE Impaired Proprioception (Position) Impaired Comments Sensation Comments Pt has poor RLE coordination in gait. Muscle Tone Muscle Tone WNL Yes Other Assessments Other Other Assessments Pt has right facial droop and slurred speech. M6 PT-IP Treatment Start: 06/02/21 09:04 Freq: NEEDED Status: Active Protocol: Document 06/05/21 15:38 KS (Rec: 06/05/21 16:43 KS [id number]) Physical Therapy Treatment Education Education Provided Safety Other Treatments Other Treatment Performed Exercises as listed in mobility section. M7 PT-IP Assessment and Plan Start: 06/02/21 09:04 Freq: NEEDED Status: Active Protocol: Document 06/05/21 15:38 KS (Rec: 06/05/21 16:43 KS [id number]) PT Summary Assessment and Plan Potential Rehabilitation Potential Good Status of Condition at Evaluation Evolving Summary Impairments Strength,Balance,Coordination, Sensation,Cognition,Transfers, Gait Progress Towards Goals Slow Progress due to Activity Tolerance,Slow Progress - Other Assessment Summary Pt w/ improved and normalized gait while ambulating w/ FWW. Ambulated 450 ft and completed various strengthening, balance, and proprioception exercises. Pt is excellent candidate for acute rehab. Goals Transfer Goal Independent Gait Goal Independent Gait Distance 500 Other Goals - up/down 7 steps with R rail ascending SBA Days to Meet Goals 8 Frequency of Treatment Frequency Of Treatment Twice a Day Treatment Plan Physical Therapy Treatment Plan Transfer Training,Gait Training,Therapeutic Exercise, Balance Retraining,Discharge Planning,Neuromuscular Re-ed, Coordination Retraining Other Recommendations and Next Treatment Gait training and dynamic Focus balance interventions. NBOS, tandem stand w/ head turns w/ fWW> SPC for safety initially. Recommendations To Nursing Amount of Assist Needed 1 Person Assist Discharge Recommendations PT Discharge Recommendations Home with 05/10 Assist Available,Acute Rehab, Outpatient PT Other Discharge Recommendations acute rehab vs home with OP PT Equipment Needed for Home Before If going home will require FWW Discharge . Transportation Needs at Discharge Private Vehicle
[2021-06-05 16:39] VITALS: BP 117/82; PULSE 61; RESP 18; TEMP 36.8; O2SAT 97
--- NOTE | 2021-06-05 16:42 | PM.PN.1 ---
Subjective Subjective Date Patient Seen: 06/05/21 Time Patient Seen: 11:00 Interval history: This is a 55 year old male with complex PMH of brain cancer with ICH after surgery and prior TIA admitted with dysarthria, facial droop, and imbalance which started 2 days prior to admission. Continues to have deficits on exam today, MRI negative but highly suspect false negative. He did slightly better with therapies today, no fever or chills, feels well today. Plan for acute rehab. Had a run of SVT on telemetry but was asymptomatic. 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 Unable to capture on EKG. Exam Vital Signs (past 8 hours): - 06/05/21 12:40 06/05/21 16:39 Temperature 98.1 F 98.2 F Pulse Rate 67 61 Respiratory Rate 17 18 Blood Pressure 116/70 117/82 Pulse Oximetry 96 97 Oxygen Delivery Method Room Air Oxygen Flow Rate 0 Narrative Exam Narrative: General:? Patient is well developed and well nourished, in no distress at this time. HEENT:? Normocephalic, atraumatic, extraocular muscles intact, oral pharynx is clear and mucous membranes are moist. Neck: supple and symmetric, trachea is midline, no cervical adenopathy. Chest:? Normal AP diameter and contour without kyphoscoliosis, no tachypnea, equal chest rise bilaterally. Lungs:? CTA b/l no wheezing rhonchi or rales. Cardio:?RRR no m/r/g. Abdomen: S NT ND. No CVA tenderness. Musculoskeletal:? Muscle strength and tone are equal within normal limits, no deformity. Extremities: No edema or joint effusions. No cyanosis or clubbing. Skin:? Pale,? Warm to touch,dry and intact without rashes, ulcerations or petechiae.? Neuro:? Alert and orientated x3,?RUE +5/5 strength. + facial droop and tongue deviation to the R. continues to have slight improvement today. Psych:? Patient has a well-kept appearance, appropriate affect, mental status attitude thought context and judgment are appropriate for age. Objective Labs Result Diagrams: 06/04/21 05:40 06/02/21 05:45 [facility] Medical History Chronic dryness of both eyes CVA (cerebral vascular accident) 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) Hyperlipidemia Intracranial tumor (07/04/14) Kidney stone Laceration of right thumb Osteonecrosis Transient cerebral ischemia (03/10/17) Surgical History History of craniotomy Status post laminectomy Family History Brother Age: 35 Mental health problem Father Age: 79 Seizure Stroke Social History household members: spouse and children Smoking Status: Never smoker alcohol intake: never Assessment & Plan Assessment & Plan narrative: Pardeep Ziegler is a 55 year old male with a prior history of a ependymoma, hemmorhagic CVA, and a most recent TIA in 2017 will be admitted for further management and treatment of an acute CVA which has affected mainly his speech center. 1. Acute CVA, present on admission - continue telemetery, PT/OT/speech therapies. 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 - continue DAPT with asa and plavix. - MR stroke was negative for acute infarcts, however suspect this to be a false negative given constellation of tongue deviation, facial droop, lack of new mass on imaging, and ataxia which all correlate with an acute infarct. - TTE unremarkable with normal EF. - given his history other possible etiologies include a metabolic encephalopathy given fever, complex migraine (less likely), less likely seizure. 2. Hypertension, acute with an admission bp of 151/95, present on admission - for permissive HTN, able to resume home BP meds and is controlled today. 3. HLD - Atorvastatin 80 mg po at bedtime 4. Fever, resolved ?- developed fever to 100.9 on admission. No further fevers. UA unremarkable and no other signs / symptoms of infection.? Checks x-ray was unremarkable. ?- may be related to acute CVA. 5. Supraventricular tachycardia. - brief episode of SVT noted on telemetry. Patient was asymptomatic. Continue telemetry. 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 - would encourage outpatient cardiology follow up given he was asymptomatic during the episode. - TTE unremarkable as noted above. 6. Encephalopathy due to CVA - patient is cognitively much diminished from his baseline due to CVA. This also appears to be slowly improving. Continue OT. Patient is admitted to the inpatient service due to the severity of disease, risks of further disease progression and this stay is expected to exceed 2 midnights. Dispo: stable for acute rehab, pending insurance authorization. Code status: Full Code as discussed with the patient who identifies his , Maggie his surrogate and POA. Time Spent With Patient Critical Care time: I spent a total of [] minutes of critical care time on this patient's care today; this time is exclusive of procedural time. Quality Stroke Contraindication Not Initiating IV-Tpa: Contraindicated Symptom Onset Unknown: Yes VTE Deep Vein Thrombosis/Pulmonary Embolism Present on Admission: No
[2021-06-05 18:10] LABS: Add Manual Diff / Slide Review NO; Basophils Absolute Auto 0 /uL (0-100); Basophils Percent Auto 0.8 % (0-2); Eosinophils Absolute Auto 100 /uL (0-450); Eosinophils Percent Auto 1.4 % (2-4); Hematocrit 40.7 % (41-53); Hemoglobin 14.3 g/dL (13.5-17.5); Lymphocytes Absolute Auto 1300 /uL (1100-4500); Lymphocytes Percent Auto 21.9 % (25-40); Mean Corpuscular HGB Conc 35.2 % (30-36); Mean Corpuscular Hemoglobin 30.3 PG (26-34); Mean Corpuscular Volume 86.2 fL (80-100); Monocytes Absolute Auto 400 /uL (0-900); Monocytes Percent Auto 7.7 % (3-14); Neutrophils Absolute Auto 3900 /uL (1500-7000); Neutrophils Percent Auto 68.2 % (50-75); Platelet Count 219 X10^3/uL (150-400); Red Blood Cell Count 4.72 X10^6/uL (4.5-5.9); Red Cell Distribution Width 13.3 % (11.6-14.8); White Blood Cell Count 5.8 X10^3/uL (4.5-11.0)
[2021-06-05 18:27] LABS: Blood Urea Nitrogen 21 mg/dL (9-20); Carbon Dioxide 27 mmol/L (22-32); Chloride 100 mmol/L (98-107); Estimated Glomerular Filt Rate > 60.0 mL/min (>60); Glucose 109 mg/dL (70-100); HEMOLYSIS 26 (0-50); Magnesium 1.9 mg/dL (1.6-2.3); Phosphorous 3.7 mg/dL (2.5-4.5); Potassium 4.1 mmol/L (3.4-5.1); Sodium 134 mmol/L (137-145)
[2021-06-05 18:37] LABS: Troponin I < 0.012 ng/mL (0.01-0.034)
[2021-06-05 20:40] VITALS: BP 123/84; PULSE 65; RESP 16; TEMP 36.6; O2SAT 97
[2021-06-05] MEDS: ATORVASTATIN 20 MG TABLET 80 MG PO (20:59)
[2021-06-06] VITALS (21 sets, daily range): BP systolic 104–138; BP diastolic 59–85; PULSE 60–86; RESP 14–23; TEMP 36.6–37.3; O2SAT 92–98
[2021-06-06] MEDS: ACETAMINOPHEN 325 MG TABLET 650 MG PO ×3 (07:52→23:58)
[2021-06-06] MEDS: LORazepam 2 MG/ML INJ (08:35)
--- NOTE | 2021-06-06 08:48 | DI.CT.S_ITS ---
PROCEDURE: CT HEAD/BRAIN WO CON INDICATIONS: seizure vs stroke TECHNIQUE: Noncontrast 4.5 mm thick angled axial sections acquired from the foramen magnum to the vertex, with coronal and sagittal reformats. For radiation dose reduction, the following was used: automated exposure control, adjustment of mA and/or kV according to patient size. COMPARISON: [facility], CT, CT STROKE, 06/01/2021, 18:20. [facility], CT, HEAD WITHOUT CONTRAST, 02/21/2017, 20:04. FINDINGS: Image quality: Excellent. CSF spaces: Basal cisterns are patent. No extra-axial fluid collections. Persistent dilatation of the left ventricle. Brain: No intracranial bleeds or masses. Gliosis in the right occipital and right parietal occipital regions. There is cerebral volume loss for age, with resultant ventricular and sulcal prominence. There are periventricular and deep white matter chronic small vessel ischemic changes. There is intracranial internal carotid artery atherosclerosis. Skull and face: Calvarium and visualized facial bones appear intact, without suspicious lesions. Redemonstrated left craniotomy and right occipital santa hole. Sinuses: Visualized sinuses and mastoids are clear. IMPRESSION: 1. No acute intracranial abnormality. 2. Increased dystrophic calcification within the left cerebellum. Dictated by: Nikos Conner M.D. on 06/06/2021 at 9:02 Approved by: Nikos Conner M.D. on 06/06/2021 at 9:16
[2021-06-06] MEDS: SODIUM CHLORIDE 0.9% 1,000 ML 84 ML IV (09:04)
--- NOTE | 2021-06-06 09:04 | DI.CT.S_ITS ---
PROCEDURE: CT ANGIO HEAD AND NECK INDICATIONS: cva vs seizure TECHNIQUE: After the administration of intravenous contrast, 1 mm thick sections acquired from the aortic arch through the [place] of [place]. Post-contrast 4.5 mm thick sections then re-acquired from the foramen magnum to the vertex. 3-dimensional dqhgaom-aljrzhlkd-cjticjlyoh (MIP) and/or volume rendering reformats were acquired of the central intracranial vasculature and neck separately. COMPARISON: [facility], CT, CT HEAD/BRAIN WO CON, 06/06/2021, 8:48. [facility], MR, MR STROKE, 06/02/2021, 7:51. [facility], CT, CT STROKE, 06/01/2021, 18:20. [facility], CT, ANGIO HEAD, 02/21/2017, 21:33. [facility], CT, HEAD WITHOUT CONTRAST, 02/21/2017, 20:04. [facility], MR, BRAIN WITH CONTRAST, 07/27/2014, 16:12. [facility], MR, BRAIN WITHOUT CONTRAST, 07/10/2014, 20:17. [facility], CT, CT ANGIO HEAD AND NECK, 06/01/2021, 19:52. FINDINGS: Image quality: Excellent. BRAIN: CSF spaces: Ventricles are normal in size and shape, noting ex vacuo dilation of the left posterior horn related to adjacent postsurgical change and encephalomalacia.. Basal cisterns are patent. No extra-axial fluid collections. Brain: No midline shift. No intracranial bleeds or masses. Walter-white matter interface appears intact. Postsurgical changes reflecting prior left temporoparietal craniotomy and resection are identified. Previously identified areas of hyperdensity appearing to be related to calcification within the left cerebellum is again noted. Small areas of serpiginous vascularity are also present within this region, unchanged. Skull and face: Postsurgical left temporoparietal craniotomy changes are identified. Orbits appear normal. Sinuses: Sinuses and mastoids are clear. HEAD CT ANGIOGRAPHY: Anterior circulation: Intracranial internal carotid arteries are normal in size and flow. The flow within the paired anterior cerebral arteries is normal and symmetric. The flow within the middle cerebral arteries is normal and symmetric. The anterior communicating artery is seen. No aneurysms are seen. Posterior circulation: Visualized portions of the vertebral arteries demonstrate normal caliber, and join to form a normal appearing basilar artery. Flow within the posterior cerebral arteries is normal and symmetric. No aneurysms are seen. Minimal left vertebral artery dominance. NECK CT ANGIOGRAPHY: The origins of the left and right common, internal and external carotid arteries demonstrate no areas of hemodynamically significant stenosis, vascular occlusion or aneurysmal dilation. Origins of the left and right vertebral arteries demonstrate no areas of hemodynamically significant stenosis, vascular occlusion or aneurysmal dilation. Calcification is present at the origin of the left vertebral artery without hemodynamically significant stenosis. Aortic arch demonstrates conventional anatomy. Limited, visualized portions of the subclavian vasculature are unremarkable. IMPRESSION: No acute intracranial process. Postsurgical left temporal parietal resection changes without abnormal enhancement are again identified. Persistent appearance of calcification within the left cerebellum a small areas of serpiginous vascularity. Etiology remains uncertain. However, differential remains vascular malformation, post treatment change or less likely neoplastic process. No areas of hemodynamically significant stenosis, vascular occlusion or aneurysmal dilation within the anterior or posterior circulation. No areas of hemodynamically significant stenosis, vascular occlusion or aneurysmal dilation within the neck vasculature. Any quantitative measurements of stenosis were performed using NASCET criteria. Dictated by: Alyson Coppola M.D. on 06/06/2021 at 9:17 Approved by: Alyson Coppola M.D. on 06/06/2021 at 9:33
[2021-06-06] MEDS: levETIRAcetam 1,500 MG in SODIUM CHLORIDE 0.9% 100 ML 460 ML IV (09:05)
--- NOTE | 2021-06-06 09:06 | PC.NURSE ---
Day shift: Pt found slid over to the right w/ labored breathing (was sitting in chair) and not responding to voice or touch at approx 0823 and at [address] Blue button pressed. Dr Nolasco in room at approx 0825 as well. Pulse checked and pulse was present. Code stroke was then called by Dr Griffin. Pt moved to bed and Code Cart in room at approx 0830 and pads applied. Rhythm read by MD and MACHINE MARKERCICI Moore. Pt given IV Ativan per MD. Pt taken to CT at approx 0832. Pt ICU RM [address] SPouse has not been called at this time. Pt is awake now and responds to voice and touch and can move left side better than the right. Speach is limited at this time. Report given to MACHINE MARKERCICI Moore at approx 0920.
--- NOTE | 2021-06-06 09:23 | P.PN_ITS ---
Subjective Subjective Date Patient Seen: 06/06/21 Time Patient Seen: 09:23 Interval history: around 8am patient had another run of SVT that was noticed yesterday. On the way to evaluate him a code blue was called as the patient was unresponsive. Patient was hunched over, limp, to his right side in the bedside chair. He was moved to the bed quickly, patient did have a tachycardic pulse but was unresponsive. While pads being placed performed carotid massage on the right. Adenosine was prepared but never given as when the pads were put on he was in a sinus tach rhythm. Shortly after he had a tightly clenched jaw and shifting eyes. He was given 2 mg of ativan at that time. He began to slowly wake up but he had worsened right sided deficits, facial droop and was unable to speak. Code stroke was called. patient was taken to CT for stat scans which were unremarkable. Tele-stroke hotline thought this was more consistent with seizure. He was given 1500 mg of Keppra, recommended to continue on Keppra by tele-stroke service. Further discussed with cardiology given SVT episodes but recommended conservative medical approach with a beta felice and holter monitor on discharge. Seen by speech today and cleared for a modified diet. Patient does not recall today's event, denies any complaints however this afternoon. Exam Vital Signs (past 8 hours): - 06/06/21 06:03 06/06/21 08:13 Temperature 97.9 F 99.1 F Pulse Rate 62 73 Respiratory Rate 14 16 Blood Pressure 113/79 123/81 Pulse Oximetry 97 97 Oxygen Delivery Method Room Air Oxygen Flow Rate 0 Narrative Exam Narrative: General:? Patient is well developed and well nourished, in no distress at this time. HEENT:? Normocephalic, atraumatic, extraocular muscles intact, oral pharynx is clear and mucous membranes are moist. Neck: supple and symmetric, trachea is midline, no cervical adenopathy. Chest:? Normal AP diameter and contour without kyphoscoliosis, no tachypnea, equal chest rise bilaterally. Lungs:? CTA b/l no wheezing rhonchi or rales. Cardio:?RRR no m/r/g. Abdomen: S NT ND. No CVA tenderness. Musculoskeletal:? Muscle strength and tone are equal within normal limits, no deformity. Extremities: No edema or joint effusions. No cyanosis or clubbing. Skin:? Pale,? Warm to touch,dry and intact without rashes, ulcerations or petechiae.? Neuro:? NIHSS slightly worse at 6 on later evaluation after CT. This afternoon Alert and orientated x3,?RUE +5/5 strength. + facial droop and tongue deviation to the R, slightly worse than yesterday. Psych:? Patient has a well-kept appearance, appropriate affect, mental status attitude thought context and judgment are appropriate for age. Objective Labs Result Diagrams: 06/06/21 10:20 06/06/21 10:20 Labs: Laboratory Results - last 24 hr 06/05/21 06/05/21 17:49 17:49 WBC 5.8 RBC 4.72 Hgb 14.3 Hct 40.7 L MCV 86.2 MCH 30.3 MCHC 35.2 RDW 13.3 Plt Count 219 Neut % (Auto) 68.2 Lymph % (Auto) 21.9 L [place] % (Auto) 7.7 Eos % (Auto) 1.4 L Baso % (Auto) 0.8 Neut # (Auto) 3900 Lymph # (Auto) 1300 [place] # (Auto) 400 Eos # (Auto) 100 Baso # (Auto) 0 Sodium 134 L Potassium 4.1 Chloride 100 Carbon Dioxide 27 BUN 21 H Creatinine 0.84 Estimated GFR > 60.0 BUN/Creatinine Ratio 25.0 H Glucose 109 H Calcium 9.0 Phosphorus 3.7 Magnesium 1.9 Troponin I < 0.012 PFSH Medical History Chronic dryness of both eyes CVA (cerebral vascular accident) 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) Hyperlipidemia Intracranial tumor (07/04/14) Kidney stone Laceration of right thumb Osteonecrosis Transient cerebral ischemia (03/10/17) Surgical History History of craniotomy Status post laminectomy Family History Brother Age: 35 Mental health problem Father Age: 79 Seizure Stroke Social History household members: spouse and children Smoking Status: Never smoker alcohol intake: never Assessment & Plan Assessment & Plan narrative: Pardeep Ziegler is a 55 year old male with a prior history of a ependymoma, hemmorhagic CVA, and a most recent TIA in 2017 who is admitted for presumed stroke though MRI negative. He was pending acute rehab when he had either a syncopal episode from an SVT or more likely seizure. He was transferred to the ICU for close neuro monitoring. 1. Acute CVA, present on admission - continue telemetery, PT/OT/speech therapies. SVT noted a few times and is discussed below. - continue DAPT with asa and plavix. - MR stroke was negative for acute infarcts, however suspect this to be a false negative given constellation of tongue deviation, facial droop, lack of new mass on imaging, and ataxia which all correlate with an acute infarct. - Patient likely had a seizure episode on the morning of 06/06. Improved slightly with ativan. Loaded with 1500 mg of keppra, continue keppra 500 mg BID. - TTE unremarkable with normal EF. - given his history other possible etiologies include a metabolic encephalopathy given fever on admission (though this has not recurred), complex migraine (less likely), seizure higher likelihood given seizure activity on 06/06. 2. Hypertension, acute with an admission bp of 151/95, present on admission -? resumed home BP meds after allowing for permissive hypertension and is controlled today. May need to adjust given needed addition of metoprolol. 3. HLD - Atorvastatin 80 mg po at bedtime 4. Fever, resolved ?- developed fever to 100.9 on admission. No further fevers. UA unremarkable and no other signs / symptoms of infection.? Checks x-ray was unremarkable. ?- may be related to acute CVA. 5. Supraventricular tachycardia. ?- brief episode of SVT noted on telemetry on 06/05. Patient was asymptomatic. Co ntinued telemetry. 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 - 06/05 evening had a 9 beat run of NSVT. - 06/06 AM, more prolonged SVT prior to code blue called on the patient as he was unresponsive. Unclear if syncopal episode due to this SVT/AVNRT or tachycardia is a response to seizure activity. - discussed with cardiology, given prior evaluation with troponin, echo, no fu rther evaluation is needed at this time. Recommended metoprolol 25 mg BID and outpatient holter monitor. If frequent occurrence would recommend referral to Dr. Diaz / EP. ?- TTE unremarkable. 6. Encephalopathy due to CVA ?- patient is cognitively much diminished from his baseline due to CVA. This also appeared to be slowly improving but is again worse after today's events. Continue OT. 7. Seizure - patient reports history of absense seizures after brain surgery, and was on keppra previously. - continue seziure precautions. Given 1500 mg IV keppra, continue 500 mg BID. - outpatient neurology highly recommended - if recurrent episodes will likely need transfer for EEG / neurology deanna luation. Patient is admitted to the inpatient service due to the severity of disease, risks of further disease progression and this stay is expected to exceed 2 midnights. Dispo: transferred to the ICU for monitoring after seizure, probably stable for the floor later today after continued monitoring. I spent 90 minutes providing critical care management this patient. This excludes time spent in performing separately billed procedures. Code status: Full Code as discussed with the patient who identifies his , Maggie his surrogate and POA. Time Spent With Patient Critical Care time: I spent a total of [] minutes of critical care time on this patient's care today; this time is exclusive of procedural time. Scores NIHSS Level of Conciousness: Alert, keenly responsive Ask month/age: Answers both questions correctly. Open/close eyes, close hand: Performs both tasks correctly Best gaze horizontal: Partial gaze palsy, can be overcome by finger tracking, head turning Visual terry: No visual loss Facial palsy: Partial paralysis, total or near total paralysis of lower face Left arm drift: No drift for full 10 sec Right arm drift: No drift for full 10 sec Left leg drift: No drift for full 5 sec Right leg drift: No drift for full 5 sec Limb ataxia: Present in one limb Sensory on face/arms/legs: Normal, no sensory loss Best language: Mild to moderate, slurs some words Dysarthria: Mild to mod,some slurring Extinction or inattention: No abnormality Total NIH Stroke scale score: 6 Quality Stroke Contraindication Not Initiating IV-Tpa: Contraindicated Symptom Onset Unknown: Yes VTE Deep Vein Thrombosis/Pulmonary Embolism Present on Admission: No
[2021-06-06 10:45] LABS: Add Manual Diff / Slide Review NO; Basophils Absolute Auto 0 /uL (0-100); Basophils Percent Auto 0.4 % (0-2); Eosinophils Absolute Auto 0 /uL (0-450); Eosinophils Percent Auto 0.4 % (2-4); Hematocrit 41.9 % (41-53); Hemoglobin 14.7 g/dL (13.5-17.5); Lymphocytes Absolute Auto 500 /uL (1100-4500); Lymphocytes Percent Auto 6.9 % (25-40); Mean Corpuscular Hemoglobin 29.9 PG (26-34); Mean Corpuscular Volume 85.3 fL (80-100); Monocytes Absolute Auto 400 /uL (0-900); Monocytes Percent Auto 5.3 % (3-14); Neutrophils Absolute Auto 6200 /uL (1500-7000); Platelet Count 232 X10^3/uL (150-400); Red Blood Cell Count 4.91 X10^6/uL (4.5-5.9); Red Cell Distribution Width 13.5 % (11.6-14.8); White Blood Cell Count 7.1 X10^3/uL (4.5-11.0)
[2021-06-06 11:13] LABS: Prolactin 24.4 ng/mL (3.7-17.9)
--- NOTE | 2021-06-06 12:00 | P.TELICUCN_ITS ---
History of Present Illness Consult details Chief complaint: Possible Stroke/HX Brain Cancer :: This patient was seen via real time interactive two-way audiovisual telecommunication. 55 year old male [facility] H/o TIA, of brain cancer s/p surgery intervention, complicated by ICH & seizure. Admitted this time with Rt sided deficit, weakness, dysarthria and facial droop, symptoms were improving, MRI was negative. Today patient developed a syncopal episode, unresponsive, never lost pulse but was in sinus tachycardia, noted to clench , worsening of the Rt sided deficit, received 2 mg ov IV Ativan and started on iv Keppra 1.[address] head and CTA head and neck was unremarkable but for cerebellar calcification, Pt mental status improved, oriented x3, his motor deficit resolved. ? Assessment: Syncope and Rt sided deficit suspicious for seizure Lt cerebellar Calcification H/o of brain cancer s/p surgery intervention, complicated by ICH & seizure H/o of TIA ? Recommendation Agree with Keppra bolus and continue Keppra 1 gm bid for now Neuro eval Q1H Check ionized Calcium and prolactin Check Mag, CBC and CMP Seizure precaution 2 D echo & Card consult NPO for now After stabilization. 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) Hyperlipidemia Intracranial tumor (07/04/14) Kidney stone Laceration of right thumb Osteonecrosis Transient cerebral ischemia (03/10/17) Surgical History History of craniotomy Status post laminectomy Family History Brother Age: 35 Mental health problem Father Age: 79 Seizure Stroke Social History household members: spouse and children Smoking Status: Never smoker alcohol intake: never Current Medications Current Medications Medications: Home Medications No Known Home Medications 06/02/21 [History Confirmed 06/02/21] Visit Medications (administered) Generic Name Dose Route Start Last Admin Trade Name Freq PRN Reason Stop Dose Admin Acetaminophen 650 mg 06/05/21 15:03 06/06/21 07:52 Acetaminophen 325 Mg Tablet PO 06/08/21 15:02 650 mg Q6HR PRN Administration Pain, Mild (1-3) Aspirin 81 mg 06/02/21 09:00 06/06/21 11:13 Aspirin Ec 81 Mg Tablet PO Not Given DAILY [facility] Atorvastatin Calcium 80 mg 06/02/21 21:00 06/05/21 20:59 Atorvastatin 20 Mg Tablet PO 80 mg BEDTIME MAHSA Administration Clopidogrel Bisulfate 75 mg 06/02/21 09:00 06/06/21 11:13 Clopidogrel 75 Mg Tablet PO Not Given DAILY [facility] Enoxaparin Sodium 40 mg 06/02/21 09:00 06/06/21 11:14 Enoxaparin 40 Mg/0.4 Ml Syringe SUBCUT Not Given DAILY [facility] Sodium Chloride 1,000 mls @ 84 mls/hr 06/06/21 09:03 06/06/21 09:04 Normal Saline 0.9% IV 06/06/21 20:57 84 mls/hr NOW ONE Administration Sodium Chloride 10 ml 06/02/21 21:15 06/06/21 11:14 Sodium Chloride 0.9% Flush IV Not Given BID [facility] Tramadol HCl 50 mg 06/01/21 22:05 06/04/21 05:49 Tramadol 50 Mg Tablet PO 50 mg Q4H PRN Administration Pain, Moderate (4-6) Exam Vital Signs (past 8 hours): - 06/06/21 06:03 06/06/21 08:13 06/06/21 08:52 Temperature 97.9 F 99.1 F 98.1 F Pulse Rate 62 73 85 Respiratory Rate 14 16 19 Blood Pressure 113/79 123/81 138/85 Pulse Oximetry 97 97 95 06/06/21 10:08 06/06/21 10:30 Temperature Pulse Rate 74 79 Respiratory Rate 20 18 Blood Pressure 120/66 Pulse Oximetry 92 96 Oxygen Delivery Method Room Air Oxygen Flow Rate 0 Objective Labs Result Diagrams: 06/06/21 10:20 06/06/21 10:20 Labs: Laboratory Results - last 24 hr 06/05/21 06/05/21 06/06/21 17:49 17:49 10:20 WBC 5.8 7.1 RBC 4.72 4.91 Hgb 14.3 14.7 Hct 40.7 L 41.9 MCV 86.2 85.3 MCH 30.3 29.9 MCHC 35.2 35.0 RDW 13.3 13.5 Plt Count 219 232 Neut % (Auto) 68.2 87.0 H Lymph % (Auto) 21.9 L 6.9 L [place] % (Auto) 7.7 5.3 Eos % (Auto) 1.4 L 0.4 L Baso % (Auto) 0.8 0.4 Neut # (Auto) 3900 6200 Lymph # (Auto) 1300 500 L [place] # (Auto) 400 400 Eos # (Auto) 100 0 Baso # (Auto) 0 0 Sodium 134 L Potassium 4.1 Chloride 100 Carbon Dioxide 27 BUN 21 H Creatinine 0.84 Estimated GFR > 60.0 BUN/Creatinine Ratio 25.0 H Glucose 109 H Calcium 9.0 Phosphorus 3.7 Magnesium 1.9 Troponin I < 0.012 Prolactin 06/06/21 10:20 WBC RBC Hgb Hct MCV MCH MCHC RDW Plt Count Neut % (Auto) Lymph % (Auto) [place] % (Auto) Eos % (Auto) Baso % (Auto) Neut # (Auto) Lymph # (Auto) [place] # (Auto) Eos # (Auto) Baso # (Auto) Sodium Potassium Chloride Carbon Dioxide BUN Creatinine Estimated GFR BUN/Creatinine Ratio Glucose Calcium Phosphorus Magnesium Troponin I Prolactin 24.4 H Assessment & Plan Time Spent With Patient Critical Care time: I spent a total of [60] minutes of critical care time on this patient's care today; this time is exclusive of procedural time.
[2021-06-06 12:16] LABS: Alanine Aminotransferase 19 IU/L (<50); Albumin 4.2 g/dL (3.5-5.0); Albumin Globulin Ratio 1.4 (1.0-2.8); Alkaline Phosphatase 40 U/L (38-126); Aspartate Aminotransferase 29 IU/L (17-59); BUN Creatinine Ratio 18.4 (6-22); Bilirubin Total 0.7 mg/dL (0.2-1.3); Blood Urea Nitrogen 14 mg/dL (9-20); Carbon Dioxide 25 mmol/L (22-32); Chloride 101 mmol/L (98-107); Creatine Kinase 131 U/L (55-170); Estimated Glomerular Filt Rate > 60.0 mL/min (>60); Glucose 104 mg/dL (70-100); HEMOLYSIS 20 (0-50); Potassium 4.2 mmol/L (3.4-5.1); Sodium 133 mmol/L (137-145); Total Protein 7.2 g/dL (6.3-8.2)
[2021-06-06 12:26] LABS: Magnesium 1.9 mg/dL (1.6-2.3)
--- NOTE | 2021-06-06 12:27 | PT-IP ANOTE ---
Per , hold until PM and then check if appropriate for PT.
[2021-06-06 13:02] LABS: TSH w/ Reflex to FT4 3.27 uIU/mL (0.47-4.68)
--- NOTE | 2021-06-06 13:50 | PT-IP ANOTE ---
Attempted to see pt at 13:50, pt refused PT due to high level of fatigue.
--- NOTE | 2021-06-06 14:26 | PC.NURSE ---
Day shift note: Called to room 210 for code blue, pt on tele showing SVT, upon arrival at bedside pt evaluated and found to have a pulse, vitals stable, changed to code stroke by Dr Griffin,considering possible seizure activity administered Ativan 2mg at bedside. Patient taken via bed to CT for CTA of head and neck. Keppra gtt ordered and administered upon pt arrival to ICU [address] Griffin at bedside consulting with stroke Dr. via phone and tele robotic weld technician via real-time video in room. Stat EKG and Labs completed as ordered, Dr Griffin to consult with Cardiology, report received from Julissa BOLANOS. Consultation for speech therapy to evaluate pt swallow. Oriented pt to room and call light system, Maggie updated on pt status and move to ICU, will come to hospital as soon as she can. Bed low and locked, seizure pads in place, call light within reach, will continue to monitor.
--- NOTE | 2021-06-06 14:30 | ST.IPCSEOM ---
Visit Care Team Role Provider Type Richie Whipple MD Primary Care Provider Physician Specialty: Family Practice Address: [address] [place] [address], [id number] Email: [email or web address] Rafy Barkley MD Family Provider Physician Specialty: Family Practice Address: [address] [place] [address], [id number] Email: [email or web address] Elizabeth Patterson DO Emergency Provider Physician Referring Provider Specialty: Emergency Medicine Address: [address] [place] [address], [address] Email: [email or web address] Admit Provider Physician Attending Provider Specialty: Internal Medicine Address: [address] [place] [address], [id number] Email: [email or web address] Current Diagnoses Cerebral infarction, unspecified (06/01/21) Past Medical History (Last Reviewed 06/02/21 @ 06:10 by KAILYN Sifuentes) Chronic dryness of both eyes (Medical) CVA (cerebral vascular accident) (Medical) Ependymoma (Medical) Ependymoma of brain (Medical) Hemorrhagic cerebrovascular accident (CVA) (Medical) History of craniotomy (Medical) Hyperlipidemia (Medical) Intracranial tumor (Medical 07/04/14) Kidney stone (Medical) Laceration of right thumb (Medical) Osteonecrosis (Medical) Transient cerebral ischemia (Medical 03/10/17) Speech-Language Pathology Swallow Evaluation SENIOR ESTIMATOR Clinical Swallow Evaluation Start: 06/02/21 11:25 Freq: Status: Active Protocol: Document 06/06/21 13:20 NAOMI (Rec: 06/06/21 13:36 ZS [id number]) Clinical Swallow Evaluation Session Time Visit Start Time 12:30 Visit Stop Time 13:30 Total Visit Minutes 30 Setting Assessment Location Acute Care Visit Type Note Type Re-evaluation Next Note Type Next Note Type Treatment Note Patient Information Identification Type Name,Wristband History Pardeep Ziegler is a 55 year old male with a prior history of a ependymoma, hemmorhagic CVA, and a most recent TIA in 2017 . He was admitted for further management and treatment of an acute CVA which has affected mainly his speech center. This morning, the pt was found slid over to the right w/ labored breathing (was sitting in chair) and not responding to voice or touch. A code blue and code stroke were called and pt was moved to ICU following CT scan. Results of the head CT indicate increased dystrophic calcification within the left cerebellum but no acute intracranial abnormality. Subjective Observations Pt was reclined in bed with at bedside when SENIOR ESTIMATOR arrived. He was awake and responded to a verbal greeting . Speech was 100% intelligible , though increased slurred speech observed. Reported by Patient Other Symptoms Coughing,Difficulty swallowing liquids Comment NSG reported pt was coughing when drinking water this morning following the event. Pt reported no difficulty with eating or drinking. Current Diet Regular,Thin liquids Baseline Feeding Method Independent in self-feeding Objective Assessment Mental Status Alert,Responsive,Cooperative Oral Integrity WFL Dentition Within normal limits Lip Function Moderate impairment Observation of Lips at Rest Right sided weakness/Drooping Pucker Reduced range of motion, Reduced strength,Right sided weakness/drooping Lip Retraction Right sided weakness/Drooping Alternating Pucker/Lip Retraction Reduced range of motion Tongue Function Moderate impairment Observations of Tongue at Rest Within normal limits Tongue Protrusion Deviates to the left Tongue Lateralization Reduced range of motion, Reduced strength Jaw Function Within normal limits Observations of Jaw at Rest Within normal limits Hard/Soft Palate Function Within normal limits Observations of Hard/Soft Palate Within normal limits Comment Moderate right side facial and lingual weakness present. Pt was able to hold air in cheeks and maintained labial seal, though reduced air was present in cheeks. No movement of lips on right during smile, though slight movement observed with pucker. Reduced ROM and strength observed with all tongue movements. Speech was slow and imprecise, although intelligible. Food and Liquid Trials Position During Assessment Upright (90 degrees),In bed Liquids Trialed Ice chips,Thin,[place] Solids Trialed Puree,Dysphagia Mechanical, Dysphagia Advanced,Mechanical Soft Administration Type Tea spoon,Cup single sip,Straw ,Self-feeding Oral Impairment Within functional limits Oral Phase Comments No anterior loss of bolus observed and a/p propulsion was WNL. Mastication of dysphagia advanced textures was slow, but WFL. Pt reported no difficulty chewing across all trials. Prompted client to clear mild oral reside x1, then pt spontaneously cleared with tongue sweep and second swallow on all subsequent trials. Pharyngeal Impairment Mildly impaired Pharyngeal Phase Comments Pt demonstrated no coughing for initial trials of thin liquids. When thin liquids were taken following Po trials of solids, pt exhibited coughing on every swallow, regardless of bolus size or presence of straw. Attempted nectar thick liquids with open cup and observed no overt signs or symptoms of aspiration with this thickness . No overt signs or symptoms of aspiration observed with solids. Fatigue/Endurance Endurance WNL Comment Pt reported no fatigue, though appeared more tired than in previous visits. No concerns for fatigue at this time, though limited trials were completed. Results The pt presents with mild pharyngeal dysphagia, characterized by impaired airway protection. Pt also presents with slowed mastication of dysphagia advanced textures, though reported no difficulty chewing . Recommend dysphagia advanced solids and nectar thick liquids at this time. Pt presents with slow and imprecise speech secondary to lingual and labial weakness. Reviewed exercises provided in previous sessions to increase strength of these structures. Findings Swallowing Function Pharyngeal phase dysphagia Severity of Swallow Impairment Mildly impaired Contributing Factors to Swallow Reduced oral strength/ Impairment coordination/sensation, Mastication inefficiency, Impaired airway protection Prognosis Good Based on Cognitive status,Family support,Age,History of aspiration/aspiration pneumonia,Comorbidities, Duration of symptoms/severity Impact on Safety and Functioning Risk for aspiration Recommendations Instrumental Assessment No Swallowing Treatment Yes Recommended Solids Dysphagia Advanced Recommended Liquids [place] Safety Precautions/Swallowing Feed only when alert,Reduce Recommendations distractions,Remain upright ( 90 degrees) during all oral intake,Upright position at least 30 minutes after meals, Small bites and sips when eating,Slow rate; swallow between bites Medication Recommendations As Tolerated Discharge Recommendations Inpatient rehab facility Education Patient/Caregiver Education Described results of evaluation,Patient expressed understanding of evaluation, Patient expressed agreement with goals & treatment plans, Family/caregivers expressed understanding of evaluation, Family/caregivers expressed agreement with goals & treatment plans,Patient expressed understanding of safety precautions,Patient expressed understanding of feeding recommendations,Family /caregivers expressed understanding of safety precautions,Family/caregivers expressed understanding of feeding recommendations Goals Short-term Goals 1. The pt will independently perform exercises to increase strength and ROM of swallow and speech musculature. Long-term Goals The pt will safely tolerate least restrictive diet to meet nutrition and hydration needs .
[2021-06-06] MEDS: METOPROLOL ER 25 MG TABLET PO ×2 (15:17→21:00)
[2021-06-06] MEDS: levETIRAcetam 250 MG TABLET 500 MG PO (21:00)
[2021-06-06] MEDS: ATORVASTATIN 20 MG TABLET 80 MG PO (21:00)
[2021-06-06] MEDS: SODIUM CHLORIDE 0.9% FLUSH 10 ML IV (21:01)
[2021-06-06] MEDS: TRAMADOL 50 MG TABLET PO (21:22)
--- NOTE | 2021-06-06 22:22 | PM.ICURNDS ---
- Date Patient Seen: 06/06/21 Time Patient Seen: 20:15 :: This patient was seen via real time interactive two-way audiovisual telecommunication. Note: 55 y.o. w/ hx of brain CA s/p resection complicated by ICH who had seizure earlier today. RN reports no further seizure activity; he is on Keppra. Hemodynamically stable and on RA. RN reports that downgrade to acute care status is being contemplated which is appropriate from the teleICU perspective. No recommendations from teleICU service.
[2021-06-07] VITALS (7 sets, daily range): BP systolic 97–119; BP diastolic 65–78; PULSE 54–63; RESP 15–17; TEMP 36.4–36.9; O2SAT 96–98
--- NOTE | 2021-06-07 06:37 | PC.NURSE ---
Shift Note-Patient has been alert and oriented, no seizure activity, PO Keppra started. Tylenol and Tramadol given for headache-effective, patient was able to sleep, VSS, ambulated to sink with walker and SBA, has chronic left foot drop.
[2021-06-07 08:54] LABS: Hematocrit 43.7 % (41-53); Hemoglobin 15.3 g/dL (13.5-17.5); Mean Corpuscular HGB Conc 35.1 % (30-36); Mean Corpuscular Hemoglobin 30.2 PG (26-34); Mean Corpuscular Volume 86.1 fL (80-100); Platelet Count 264 X10^3/uL (150-400); Red Blood Cell Count 5.08 X10^6/uL (4.5-5.9); Red Cell Distribution Width 13.6 % (11.6-14.8)
[2021-06-07 09:14] LABS: BUN Creatinine Ratio 16.7 (6-22); Blood Urea Nitrogen 13 mg/dL (9-20); Calcium 9.1 mg/dL (8.4-10.2); Carbon Dioxide 24 mmol/L (22-32); Chloride 104 mmol/L (98-107); Estimated Glomerular Filt Rate > 60.0 mL/min (>60); Glucose 111 mg/dL (70-100); HEMOLYSIS < 15 (0-50); Potassium 4.2 mmol/L (3.4-5.1); Sodium 136 mmol/L (137-145)
[2021-06-07] MEDS: levETIRAcetam 250 MG TABLET 500 MG PO ×2 (09:31→20:31)
[2021-06-07] MEDS: ASPIRIN EC 81 MG TABLET PO (09:31)
[2021-06-07] MEDS: CLOPIDOGREL 75 MG TABLET PO (09:31)
[2021-06-07] MEDS: ENOXAPARIN 40 MG/0.4 ML SYRINGE SUBCUT (09:31)
[2021-06-07] MEDS: SODIUM CHLORIDE 0.9% FLUSH 10 ML IV ×2 (09:32→20:31)
[2021-06-07] MEDS: METOPROLOL ER 25 MG TABLET PO (09:32)
--- NOTE | 2021-06-07 10:38 | DIET.CONS ---
Dietary Consultation Note Admission Date: 06/01/2021 21:11 Assessment: 55y M c pmhx brain ca admitted with seizures screened by RD for LOS day 6. Pt assigned Dysphagia Advanced/nkt diet by Speech Therapy. Pt with good POs 50-100%. No acute nutrition needs identified at this time. Ht: 179.07 cm Wt: 82 kg BMI: 25.5 UBW: Last BM: 06/07/21 (06/07/21 07:51) MNA: 14 Arnold Score: 18 Diet: 06/06/21 Dinner Dysphagia Diet Diet Modifications: Liquid consistency: Emlyn Consistency Food texture: Dysphagia Advanced Nutrition Percent Meal Consumed 50% 06/07/21 08:36 Percent Meal Consumed 75% 06/06/21 18:07 Percent Meal Consumed 100% 06/06/21 08:18 Percent Meal Consumed 100% 06/05/21 13:30 Labs: RBC 5.08 X10^6/uL (4.5-5.9) 06/07/21 08:42 Hgb 15.3 g/dL (13.5-17.5) 06/07/21 08:42 Hct 43.7 % (41-53) 06/07/21 08:42 Creatinine 0.78 mg/dL (0.66-1.25) 06/07/21 08:42 Hemoglobin A1c 5.2 % (4.0-6.0) 06/01/21 17:15 Electronically Signed by: Fernanda Deal 06/07/21 10:38 Clinical Dietitian [address] [address]
--- NOTE | 2021-06-07 11:11 | OT.IP.TRT ---
Current Diagnoses Cerebral infarction, unspecified (06/01/21) Occupational Therapy Treatment Note M2 OT-IP Current Condition Start: 06/02/21 12:47 Freq: Status: Active Protocol: Document 06/02/21 12:47 CGR (Rec: 06/02/21 13:10 CGR [id number]) Occupational Therapy Current Condition Current Condition Evaluation Date 06/02/21 Treatment Diagnosis R sided facial droop, slurred speech Diagnosis Onset Date 06/01/21 M3 OT- IP Subjective and Pain Start: 06/02/21 12:47 Freq: Status: Active Protocol: Document 06/07/21 12:04 CGR (Rec: 06/07/21 12:10 CGR [id number]) OT- Subjective Occupational Therapy Visit Type Type Progress Note Visit Start Time 11:00 Visit Stop Time 11:11 Total Visit Minutes 11 Notes Pt working on his computer when OT entered. OT Pain Assessment Pain When Pain Assessed At Rest Pain Present Pain Present Denied Pain M4 OT- IP ADL's Start: 06/02/21 12:47 Freq: Status: Active Protocol: Document 06/07/21 12:04 CGR (Rec: 06/07/21 12:10 CGR [id number]) OT [id number] Comments OT Self-Feeding Comments not meal time OT ADL-Grooming Comments OT Grooming Comments not performed OT ADL-Oral Care Comments Oral Care Comments not performed OT ADL-Dressing General Eval Lower Body Dressing Ability Standby Assistance Areas Needing Assistance Socks Comments OT Dressing Comments Pt was much slower donning socks today which appears to have significanlty helped with his effectivness. OT ADL-Toileting Comments OT Toileting Comments not performed OT ADL-Bathing Comments OT Bathing Comments not performed M5 OT- IP IADL's Start: 06/02/21 12:47 Freq: Status: Active Protocol: Document 06/02/21 12:47 CGR (Rec: 06/02/21 13:10 CGR [id number]) OT-Instrumental Activities of Daily Living Deficits IADL Deficits Identified Deficits Home Safety Awareness Awareness of Need for Assistance at Home Decreased Awareness Ability to Problem Solve Emergency Unable to Problem Solve Situations Medication Management Medication Management Comments Concerns regarding pt's ability to perform safely Money Management Money Management Comments Concerns regarding pt's ability to perform safely Meal Preparation Meal Preparation Comments Concerns regarding pt's ability to perform safely Director Of Agriculture Director Of Agriculture Comments Concerns regarding pt's ability to perform safely Driving Driving Comments Pt does not drive at baseline M6 OT- IP Functional Cognition Start: 06/02/21 12:47 Freq: Status: Active Protocol: Document 06/03/21 15:57 CGR (Rec: 06/03/21 16:05 CGR [id number]) Cognitive Factors Limiting Selfcare Function Cognitive Ability Level of Alertness Alert Cognitive Tests MOCA Pt participated in the MOCA scoring a 23/30. Pt had particular trouble with visuospatial/executive functioning tasks and naming. Pt named the lion as a parrot, and the rhino as a pig. Pt also missed 2 of the delayed recall words. Cognitive Comments Cognitive Assessment Comments Concerns regarding pt's higher level cognitive abilities given SLUMS score with ST and now MOCA score with this tag writer. Pt would benefit from acute therapy services to help address deficits. M7 OT- IP Mobility and Balance Start: 06/02/21 12:47 Freq: Status: Active Protocol: Document 06/05/21 14:02 CGR (Rec: 06/05/21 14:31 CGR [id number]) OT- Bed Mobility Assessment Rolling Level of Assistance Standby Assistance Supine to Sit Supine to Sit Assist Standby Assistance Sit to Supine Sit to Supine Assist Standby Assistance Scooting Scooting to Edge of Bed Standby Assistance OT-Transfer Assessment Sit to and From Stand Sit to and from Stand Contact Guard Assistance Transfers Transfer Ability Contact Guard Assistance Technique Transfer Destination Bed,Bedside Commode,Shower Stall Transfer Technique Stand Step Pivot Devices Transfer Assistive Devices Gait Belt Comments Mobility Comments Pt mobilizes around the room with just the gait belt but with 2 small LOB that did not require physical assist to correct. Pt returned to bed at end of session. OT- Balance Assessment Sitting Balance and Reactions Static Sitting Balance Ability Normal Dynamic Sitting Balance Ability Good M8 OT- IP Objective Assessments Start: 06/02/21 12:47 Freq: Status: Active Protocol: Document 06/02/21 12:47 CGR (Rec: 06/02/21 13:10 CGR [id number]) OT Gross Range of Motion Upper Extremity Range of Motion Assessment Within Functional Limits OT Strength Upper Extremity Strength Assessment Within Functional Limits Comments Strength Comments 4+/5 throughout OT- Coordination Assessment Upper Extremity Finger to Nose Test Right UE Impaired Finger Tapping Test Right UE Impaired Comments Coordination Comments Pt with significantly delayed fine motor on the right hand and also inability to consistently touch the tip of his nose. OT-Muscle Tone Assessment Muscle Tone WNL Yes OT Sensation Assessment Edema Edema Absent M9 OT- IP Assessment and Plan Start: 06/02/21 12:47 Freq: Status: Active Protocol: Document 06/07/21 12:04 CGR (Rec: 06/07/21 12:10 CGR [id number]) OT Summary Assessment and Plan Potential Rehabilitation Potential Excellent Analytic Complexity at Evaluation Moderate Summary OT Impairments Balance,Coordination, Functional Cognition, Functional Mobility,Self- Feeding,Grooming,Dressing, Toileting,Bathing,Toilet Transfers,Shower Transfers Progress Towards Goals Slow Progress due to Cognition Assessment Summary Pt presents as a moderate complexity evaluation s/p admit for stoke like symptoms. Pt demonstrates deficits to fined and gross motor control of his right hand, cognition/ problem solving, functional mobility, and balance. Pt would benefit from acute rehab for deficits as he has good endurance. Pt now s/p code blue and appears slower in mentation and mobility. Pt is more effective with using his right hand today given the slower mobility but also is demonstrating slower cognition . Pt participated in stacking activities and fine motor finger pinch activities. Pt would benefit from further cog testing. Goals Self-Feeding Goal Independent Grooming Goal Independent Dressing Goal Independent Toileting Goal Independent Bathing Goal Independent Toilet Transfer Goal Independent Shower Transfer Goal Independent OT-Other Goals improve R hand fine/gross motor for ADLs without assist or extra time. Days to Meet Goals 10 Frequency of Treatment Frequency Of Treatment Once a Day Treatment Plan OT Treatment Plan ADL Training,Functional Cognition Training,Functional Mobility,Patient/Family Education,Discharge Planning Other Treatment Recommendations and Next R hand coordination, cognition Treatment Focus Discharge Recommendations OT Discharge Recommendations Acute Rehab Transportation Needs at Discharge Private Vehicle
--- NOTE | 2021-06-07 11:22 | PT.IPTN ---
Current Diagnoses Cerebral infarction, unspecified (06/01/21) Physical Therapy Treatment Note M2 PT-IP Current Condition Start: 06/02/21 09:04 Freq: NEEDED Status: Active Protocol: Document 06/05/21 08:40 SP (Rec: 06/05/21 12:18 SP [id number]) Physical Therapy Current Condition Current Condition Evaluation Date 06/02/21 Treatment Diagnosis CVA vs TIA, R-side weakness; impaired mobility and gait Onset Date 06/01/21 M3 PT-IP Subjective Start: 06/02/21 09:04 Freq: NEEDED Status: Active Protocol: Document 06/07/21 11:07 KS (Rec: 06/07/21 12:57 KS [id number]) Subjective Physical Therapy Visit Type Type Treatment Note Visit Start Time 11:07 Visit Stop Time 11: Total Visit Minutes 15 Number of ASSOCIATE QUALITY ENGINEER Visits 8 Physical Therapy Visit Comments Patient Comments Pt agreeable to working w/ therapy, but reporting some fatigue. Patient Goals Pt agreeable to going to acute rehab if able to get stronger balance for walking back to [facility]. M4 PT-IP Mobility and Gait Start: 06/02/21 09:04 Freq: NEEDED Status: Active Protocol: Document 06/07/21 11:07 KS (Rec: 06/07/21 12:57 KS [id number]) PT-Transfer Assessment Sit to and From Stand Sit to and from Stand Contact Guard Assistance,1 Person Assistance,Use of Upper Extremities Equipment Transfer Assistive Device Gait Belt,Front Wheeled Walker Orthotic/Prosthetic Devices or Brace: No Transfers Transfer Destination Chair Transfer Technique ambulated w/ FWW Transfer Ability Level of Assist Contact Guard Assistance,1 Person Assistance,Use of Upper Extremities Comments Mobility Comments Pt in chair upon arrival and agreeable to ambulate w/ FWW. CGA for sit<>Stand, pt then ambulated ~150 [address] in hallway w / FWW and CGA. Pt w/ slower jese and more ataxic gait today and reporting achiness in hips during ambulation, but no LOB w/ FWW. Pt returned to room and completed 1x10 bilateral ankle pumps, quad sets, glute sets, and seated marches w/ increased difficulty L>R. Gait Assessment Gait Gait Assistance Required: Contact Guard Assist Distance (Feet) 150 Assistive Devices Assistive Device Gait Belt,Front Wheeled Walker Orthotic/Prosthetic Devices or Brace: No Gait Deviations General Gait Pattern Ataxic,Decreased Stride Length ,Decreased Feet Clearance, Lateral Trunk Lean,Wide Based Gait Factors Limiting Gait Function Factors Limiting Gait Function Decreased Activity Tolerance, Decreased Strength,Difficulty Following Directions,Poor Balance,Poor Safety Awareness Comments Gait Comments See mobility comments. PT-Balance Assessment Sitting Balance and Reactions Static Sitting Balance Ability Good Dynamic Sitting Balance Ability Good Standing Balance and Reactions Static Standing Balance Ability Fair Dynamic Standing Balance Ability Fair Device Used FWW M5 PT-IP Objective Assessments Start: 06/02/21 09:04 Freq: NEEDED Status: Active Protocol: Document 06/02/21 10:58 AW (Rec: 06/02/21 12:09 AW [id number]) Orientation Orientation/Cognition Level of Alertness Confusional State Orientation Name,Month,Place,Situation Language Function Ability Garbled Speech Safety Awareness Decreased Safety Awareness Gross Range of Motion Upper Extremity ROM Assessment Within Functional Limits Lower Extremity ROM Assessment Within Functional Limits Strength Upper Extremity Strength Assessment Right Impaired Hand boiler tube reamer strength 1 grade < left which pt states is >baseline impairment Lower Extremity Strength Assessment Left Impaired Hip 4+/5 Knee 5/5 Ankle 3+/5 DF Comments Strength Comments Pt reports pre-existing L foot drop Coordination Assessment Gross Coordination Gross Coordination Impaired Assessment Finger to Nose Test Minimal Impairment Pronation/Supination Test Moderate Impairment Foot Tapping Test Minimal Impairment Coordination Comments Pt missed targets >1 cm on finger to nose testing EO and EC. Unable to complete rapid pronation/supination without RUE lag. Sensation Assessment Sensation Gross Sensation Right LE Impaired Proprioception (Position) Impaired Comments Sensation Comments Pt has poor RLE coordination in gait. Muscle Tone Muscle Tone WNL Yes Other Assessments Other Other Assessments Pt has right facial droop and slurred speech. M6 PT-IP Treatment Start: 06/02/21 09:04 Freq: NEEDED Status: Active Protocol: Document 06/07/21 11:07 KS (Rec: 06/07/21 12:57 KS [id number]) Physical Therapy Treatment Exercises Exercises Ankle Pumps,Gluteal Sets,Quad Sets Education Education Provided Safety Other Treatments Other Treatment Performed Seated marching M7 PT-IP Assessment and Plan Start: 06/02/21 09:04 Freq: NEEDED Status: Active Protocol: Document 06/07/21 11:07 KS (Rec: 06/07/21 12:57 KS [id number]) PT Summary Assessment and Plan Potential Rehabilitation Potential Good Status of Condition at Evaluation Evolving Summary Impairments Strength,Balance,Coordination, Sensation,Cognition,Transfers, Gait Progress Towards Goals Slow Progress due to Activity Tolerance,Slow Progress - Other Assessment Summary Pt w/ decreased mobility and tolerance following event yesterday, but still able to ambulate 150 ft w/ FWW ad complete LE strengthening exercises. He will greatly benefit from acute rehab to return to PLOF. Goals Transfer Goal Independent Gait Goal Independent Gait Distance 500 Other Goals - up/down 7 steps with R rail ascending SBA Days to Meet Goals 8 Frequency of Treatment Frequency Of Treatment Twice a Day Treatment Plan Physical Therapy Treatment Plan Transfer Training,Gait Training,Therapeutic Exercise, Balance Retraining,Discharge Planning,Neuromuscular Re-ed, Coordination Retraining Other Recommendations and Next Treatment Gait training and dynamic Focus balance interventions. NBOS, tandem stand w/ head turns w/ fWW> SPC for safety initially. Recommendations To Nursing Amount of Assist Needed 1 Person Assist Discharge Recommendations PT Discharge Recommendations Home with 24/7 Assist Available,Acute Rehab, Outpatient PT Other Discharge Recommendations acute rehab vs home with OP PT Equipment Needed for Home Before If going home will require FWW Discharge . Transportation Needs at Discharge Private Vehicle
--- NOTE | 2021-06-07 12:09 | CM.DPNOTE ---
Addendum entered by NARCISO Desir 06/07/21 15:31: ADD: Spouse Maggie and Patient updated and agreeable to plan. Spouse to transport to [facility] tomorrow. OTF Original Note: DCP Update According to Ino Wolf# [phone] at [facility] acute rehab; patient's insurance has authorized his transfer from to [facility]. Admitting provider is Dr Mccullough,they have a bed tomorrow 06.08.21 Updated nursing team. Awaiting conversation now w/patient and spouse when she arrives at bedside. For day of discharge: Need to fax F# [phone] updated clinicals (prog note, therapy notes) current MAR and signed DC Summary to [facility]. No need for signed med list. Need updated COVID PCR Wednesday AM. Spouse okay to transport. this [employer] will confirm w/patient/spouse today. ETA at [facility] should be approx 1300 Plan: DC expected Wednesday06.08.21 to [facility] acute rehab via private pov Dr Kwan updated w./plan and agreeable OTF
--- NOTE | 2021-06-07 13:14 | P.PN_ITS ---
Subjective Subjective Date Patient Seen: 06/07/21 Time Patient Seen: 08:00 Interval history: Today he feels well. His speech is improved and otherwise he feels back to baseline. Overnight he did have brief 4 beat run of NSVT with no other events noted on telemetry. Exam Vital Signs (past 8 hours): - 06/07/21 09:41 06/07/21 10:47 Temperature 97.8 F Pulse Rate 54 L 58 L Respiratory Rate 17 Blood Pressure 97/65 Pulse Oximetry 98 Oxygen Delivery Method Room Air Oxygen Flow Rate 0 Narrative Exam Narrative: GEN: no acute distress CV: regular rate and rhythm, no murmurs PULM: clear bilaterally NEURO: slurred speech, moving all extremities Objective Labs Result Diagrams: 06/07/21 08:42 06/07/21 08:42 Labs: Laboratory Results - last 24 hr 06/07/21 06/07/21 08:42 08:42 WBC 7.0 RBC 5.08 Hgb 15.3 Hct 43.7 MCV 86.1 MCH 30.2 MCHC 35.1 RDW 13.6 Plt Count 264 Sodium 136 L Potassium 4.2 Chloride 104 Carbon Dioxide 24 BUN 13 Creatinine 0.78 Estimated GFR > 60.0 BUN/Creatinine Ratio 16.7 Glucose 111 H Calcium 9.1 PFSH Medical History Chronic dryness of both eyes CVA (cerebral vascular accident) 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) Hyperlipidemia Intracranial tumor (07/04/14) Kidney stone Laceration of right thumb Osteonecrosis Transient cerebral ischemia (03/10/17) Surgical History History of craniotomy Status post laminectomy Family History Brother Age: 35 Mental health problem Father Age: 79 Seizure Stroke Social History household members: spouse and children Smoking Status: Never smoker alcohol intake: never Assessment & Plan Assessment & Plan narrative: Pardeep Ziegler is a 55 year old male with a prior history of a ependymoma, hemmorhagic CVA, and a most recent TIA in 2017 who is admitted for presumed stroke though MRI negative. He was pending acute rehab when he had either a syncopal episode from an SVT or more likely seizure. He was transferred to the ICU for close neuro monitoring. 1. Neurologic change, acute, improving - continue telemetery, PT/OT/speech therapies. SVT noted a few times and is discussed below. - continue DAPT with asa and plavix. - MR stroke was negative for acute infarcts, however suspect this to be a false negative given constellation of tongue deviation, facial droop, lack of new mass on imaging, and ataxia which all correlate with an acute infarct. - Patient likely had a seizure episode on the morning of 06/06. Improved slightly with ativan. Loaded with 1500 mg of keppra, continue keppra 500 mg BID - TTE unremarkable with normal EF - given his history other possible etiologies include a metabolic encephalopathy given fever on admission (though this has not recurred), complex migraine (less likely), seizure higher likelihood given seizure activity on 06/06. 2. Hypertension, acute with an admission bp of 151/95, present on admission -? resumed home BP meds after allowing for permissive hypertension and is controlled today. May need to adjust given needed addition of metoprolol. 3. HLD - Atorvastatin 80 mg po at bedtime 4. Fever, resolved ?- developed fever to 100.9 on admission. No further fevers. UA unremarkable and no other signs / symptoms of infection.? Checks x-ray was unremarkable. ?- may be related to acute CVA. 5. Supraventricular tachycardia, resolved ?- brief episode of SVT noted on telemetry on 06/05. Patient was asymptomatic. Continued telemetry. 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 ?- 06/05 evening had a 9 beat run of NSVT. ?- 06/06 AM, more prolonged SVT prior to code blue called on the patient as he was unresponsive. Unclear if syncopal episode due to this SVT/AVNRT or tachycardia is a response to seizure activity. ?- discussed with cardiology, given prior evaluation with troponin, echo, no further evaluation is needed at this time. Recommended metoprolol 25 mg BID and outpatient holter monitor. If frequent occurrence would recommend referral to Dr. Diaz / EP. ?- TTE unremarkable. - decrease metoprolol to 25mg daily due to mild bradycardia 6. Encephalopathy due to CVA, resolved ?- patient is cognitively much diminished from his baseline due to CVA. This also appeared to be slowly improving but is again worse after today's events. Continue OT. 7. Seizure ?- patient reports history of absense seizures after brain surgery, and was on keppra previously. ?- continue seziure precautions. Given 1500 mg IV keppra, continue 500 mg BID. ?- outpatient neurology highly recommended ?- if recurrent episodes will likely need transfer for EEG / neurology evaluation Dispo: patient is stable after starting keppra and metoprolol, he is medically stable for discharge pending dispo Time Spent With Patient Critical Care time: I spent a total of [] minutes of critical care time on this patient's care today ; this time is exclusive of procedural time. Quality Stroke Contraindication Not Initiating IV-Tpa: Contraindicated Symptom Onset Unknown: Yes VTE Deep Vein Thrombosis/Pulmonary Embolism Present on Admission: No
--- NOTE | 2021-06-07 13:51 | PT.IPTN ---
Current Diagnoses Cerebral infarction, unspecified (06/01/21) Physical Therapy Treatment Note M2 PT-IP Current Condition Start: 06/02/21 09:04 Freq: NEEDED Status: Active Protocol: Document 06/05/21 08:40 SP (Rec: 06/05/21 12:18 SP [id number]) Physical Therapy Current Condition Current Condition Evaluation Date 06/02/21 Treatment Diagnosis CVA vs TIA, R-side weakness; impaired mobility and gait Onset Date 06/01/21 M3 PT-IP Subjective Start: 06/02/21 09:04 Freq: NEEDED Status: Active Protocol: Document 06/07/21 13:40 KS (Rec: 06/07/21 15:01 KS [id number]) Subjective Physical Therapy Visit Type Type Treatment Note Visit Start Time 13:40 Visit Stop Time 13:51 Total Visit Minutes 11 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 M4 PT-IP Mobility and Gait Start: 06/02/21 09:04 Freq: NEEDED Status: Active Protocol: Document 06/07/21 13:40 KS (Rec: 06/07/21 15:01 KS [id number]) PT-Transfer Assessment Sit to and From Stand Sit to and from Stand Contact Guard Assistance,1 Person Assistance,Use of Upper Extremities Equipment Transfer Assistive Device Gait Belt,Front Wheeled Walker Orthotic/Prosthetic Devices or Brace: No Transfers Transfer Destination Chair Transfer Technique ambulated w/ FWW Transfer Ability Level of Assist Contact Guard Assistance,1 Person Assistance,Use of Upper Extremities Comments Mobility Comments Pt in chair upon arrival and still working from computer. Reports high level of fatigue but agreeable to ambulate. Pt ambulated ~100 ft w/ FWW CGA again w/ slow jese and increased incoordination. Pt needed cues to look forward and barely avoided obstacles in hallway. Pt returned to room and chair and left in chair w/ all needs in reach. Gait Assessment Gait Gait Assistance Required: Contact Guard Assist Distance (Feet) 100 Assistive Devices Assistive Device Gait Belt,Front Wheeled Walker Orthotic/Prosthetic Devices or Brace: No Gait Deviations General Gait Pattern Ataxic,Decreased Stride Length ,Decreased Feet Clearance, Lateral Trunk Lean,Wide Based Gait Factors Limiting Gait Function Factors Limiting Gait Function Decreased Activity Tolerance, Decreased Strength,Difficulty Following Directions,Poor Balance,Poor Safety Awareness Comments Gait Comments Pt gait seems to be worsening today, less coordinated, slower, and not as safe w/ FWW . PT-Balance Assessment Sitting Balance and Reactions Static Sitting Balance Ability Good Dynamic Sitting Balance Ability Good Standing Balance and Reactions Static Standing Balance Ability Fair Dynamic Standing Balance Ability Fair Device Used FWW M5 PT-IP Objective Assessments Start: 06/02/21 09:04 Freq: NEEDED Status: Active Protocol: Document 06/02/21 10:58 AW (Rec: 06/02/21 12:09 AW [id number]) Orientation Orientation/Cognition Level of Alertness Confusional State Orientation Name,Month,Place,Situation Language Function Ability Garbled Speech Safety Awareness Decreased Safety Awareness Gross Range of Motion Upper Extremity ROM Assessment Within Functional Limits Lower Extremity ROM Assessment Within Functional Limits Strength Upper Extremity Strength Assessment Right Impaired Hand resident physician in radiology strength 1 grade < left which pt states is >baseline impairment Lower Extremity Strength Assessment Left Impaired Hip 4+/5 Knee 5/5 Ankle 3+/5 DF Comments Strength Comments Pt reports pre-existing L foot drop Coordination Assessment Gross Coordination Gross Coordination Impaired Assessment Finger to Nose Test Minimal Impairment Pronation/Supination Test Moderate Impairment Foot Tapping Test Minimal Impairment Coordination Comments Pt missed targets >1 cm on finger to nose testing EO and EC. Unable to complete rapid pronation/supination without RUE lag. Sensation Assessment Sensation Gross Sensation Right LE Impaired Proprioception (Position) Impaired Comments Sensation Comments Pt has poor RLE coordination in gait. Muscle Tone Muscle Tone WNL Yes Other Assessments Other Other Assessments Pt has right facial droop and slurred speech. M6 PT-IP Treatment Start: 06/02/21 09:04 Freq: NEEDED Status: Active Protocol: Document 06/07/21 13:40 KS (Rec: 06/07/21 15:01 KS [id number]) Physical Therapy Treatment Education Education Provided Safety M7 PT-IP Assessment and Plan Start: 06/02/21 09:04 Freq: NEEDED Status: Active Protocol: Document 06/07/21 13:40 KS (Rec: 06/07/21 15:01 KS [id number]) PT Summary Assessment and Plan Potential Rehabilitation Potential Good Status of Condition at Evaluation Evolving Summary Impairments Strength,Balance,Coordination, Sensation,Cognition,Transfers, Gait Progress Towards Goals Slow Progress due to Activity Tolerance,Slow Progress - Other Assessment Summary Pt still reporting high level of fatigue and has decreased activity tolerance as compared to before event yesterday morning. Ambulated 100 ft, but slower with movements and also slower/more slurred speech today. RN aware. He will require acute rehab to improve. Goals Transfer Goal Independent Gait Goal Independent Gait Distance 500 Other Goals - up/down 7 steps with R rail ascending SBA Days to Meet Goals 8 Frequency of Treatment Frequency Of Treatment Twice a Day Treatment Plan Physical Therapy Treatment Plan Transfer Training,Gait Training,Therapeutic Exercise, Balance Retraining,Discharge Planning,Neuromuscular Re-ed, Coordination Retraining Other Recommendations and Next Treatment Gait training and dynamic Focus balance interventions. NBOS, tandem stand w/ head turns w/ fWW> SPC for safety initially. Recommendations To Nursing Amount of Assist Needed 1 Person Assist Discharge Recommendations PT Discharge Recommendations Home with 24/7 Assist Available,Acute Rehab, Outpatient PT Other Discharge Recommendations acute rehab vs home with OP PT Equipment Needed for Home Before If going home will require FWW Discharge . Transportation Needs at Discharge Private Vehicle
[2021-06-07] MEDS: HYDROCORTISONE 1% CREAM 28 GM 1 APPLIC TOP ×2 (14:53→20:32)
[2021-06-07] MEDS: ATORVASTATIN 20 MG TABLET 80 MG PO (20:31)
[2021-06-08] VITALS: BP 116/77; PULSE 60; RESP 20; TEMP 36.9; O2SAT 98
[2021-06-08 04:00] VITALS: BP 108/69; PULSE 60; RESP 15; TEMP 36.9; O2SAT 97
[2021-06-08] MEDS: ACETAMINOPHEN 325 MG TABLET 650 MG PO (06:54)
[2021-06-08 08:00] VITALS: BP 116/75; PULSE 54; RESP 18; TEMP 37.2; O2SAT 88; O2SAT 96
[2021-06-08 08:01] VITALS: BP 116/75; PULSE 56; O2SAT 96
--- NOTE | 2021-06-08 08:41 | P.DS_ITS ---
History of Present Illness History of Present Illness Chief complaint: Possible Stroke/HX Brain Cancer Narrative: [place]: Pardeep Ziegler is a pleasant 55 y.o. 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 Patient has residual deficits primarily occasionally dropping items.? He began to drop items more frequently over the past day or so and the patient was last seen normal at 15 30 on 06/01/2021.? He had waxing and waning of his speech improving and then deteriorating improving and then deteriorating again.? It was difficult to appreciate the actual onset of when this started he and his presented to the emergency department he was outside the window for tPA.? He also took a low- dose aspirin when the symptoms started.? He does deny headache, fever sweats or chills, chest pain, shortness of breath, abdominal pain, dysuria, diarrhea c onstipation, numbing or tingling of his upper or lower extremities. Brain CT indicated progressive cortical calcification in the left cerebellar hemisphere with a small focus of calcification along the anterior margin of the left temporal lobe resection bed.? It did not identify any acute hemorrhage.? And also noted chronic stable changes of the left temporoparietal resection, I same metric enlargement of the left lateral ventricle an overlying left parietal lobe cortical volume loss.? He also has a small right parietal santa hole present.? It also noted ?areas of encephalomalacia in the left parietal and temporal lobes likely related to prior surgical changes...? Curvilinear cortical calcifications within the left cerebellar hemisphere redemonstrated with associated indistinct enhancement following contrast administration.? These were increased prior to the previous study of 2017.? In the conclusions it did not fully exclude a neoplastic process but was considered to be less likely and recommended a contrast-enhanced MRI.? Patient's presenting blood pressure was 151/95 and is relatively unchanged, he is afebrile, heart rate is 76, respiratory rate 16, oxygen saturation of 96% on room air, he weighs 82 kg with a BMI of 25.5.? CBC is unremarkable, sodium 134, chemistries otherwise are unremarkable, urinalysis is negative for UTI as well as urine toxicology and COVID-19 PCR is negative. Discharge Providers Provider Date of admission: 06/01/21 21:11 Discharge Date: 06/08/21 Primary care physician: Richie Whipple MD Consults: 06/01/21 22:11 Consult to Occupational Therapy Evaluate & Treat Comment: Physician Instructions: Evaluate and treat Consult to Physical Therapy Evaluate & Treat Comment: Physician Instructions: Evaluate and Treat 06/01/21 22:12 Consult to Speech Therapy Evaluate & Treat Comment: Physician Instructions: Evaluate and treat 06/06/21 09:32 Consult to Speech Therapy Evaluate & Treat Comment: Physician Instructions: Evaluate and treat Discharge provider: Juan Gardiner MD Summary Hospital Course Discharge Diagnosis: 1. Neurologic change, improving 2. Hypertension 3. Acute seizure 4. Acute encephalopathy 5. Supraventricular tachycardia 6. Hyperlipidemia 7. History of brain cancer s/p resection Hospital Course: Mr. Ziegler was admitted after having tongue deviation, facial droop, ataxia, and speech changes initially thought to have had a stroke. He did have workup done with brain imaging which showed no mass, and showed no evidence for stroke. He was started on aspirin and statin for concern that this was a possible false negative. He did also develop SVT in in the hospital that self resolved. Electrolytes were normal, ECHO was unremarkable. Discussion was had with cardiology who recommended low dose beta-felice. His rhythm did not appear to be atrial fibrillation, and occurred in the setting of possible seizure, so he was not started on anticoagulation. In addition he had an episode of unresponsiveness and chema rodriguez was briefly called, but during this episode he had eye deviation and jaw clenching which resolved with ativan. His prolactin was elevated, and this was all consistent with seizure. He was started on keppra and his symptoms did not reoccur. He should be established with neurology as an outpatient. He is discharged to acute rehab for further therapy. CODE: Full Exam Vital Signs (past 8 hours): - 06/08/21 04:00 06/08/21 08:00 Temperature 98.4 F 98.9 F Pulse Rate 60 54 L Respiratory Rate 15 18 Blood Pressure 108/69 116/75 Pulse Oximetry 97 96 Oxygen Delivery Method Room Air Oxygen Flow Rate 0 Narrative Exam Narrative: GEN: no acute distress CV: regular rate and rhythm, no murmurs PULM: clear bilaterally NEURO: slurred speech, moving all extremities Objective Labs Result Diagrams: 06/07/21 08:42 06/07/21 08:42 Labs: Laboratory Results - last 24 hr 06/07/21 06/07/21 08:42 08:42 WBC 7.0 RBC 5.08 Hgb 15.3 Hct 43.7 MCV 86.1 MCH 30.2 MCHC 35.1 RDW 13.6 Plt Count 264 Sodium 136 L Potassium 4.2 Chloride 104 Carbon Dioxide 24 BUN 13 Creatinine 0.78 Estimated GFR > 60.0 BUN/Creatinine Ratio 16.7 Glucose 111 H Calcium 9.1 PFSH Medical History Chronic dryness of both eyes CVA (cerebral vascular accident) 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) Hyperlipidemia Intracranial tumor (07/04/14) Kidney stone Laceration of right thumb Osteonecrosis Transient cerebral ischemia (03/10/17) Surgical History History of craniotomy Status post laminectomy Family History Brother Age: 35 Mental health problem Father Age: 79 Seizure Stroke Social History household members: spouse and children Smoking Status: Never smoker alcohol intake: never Discharge Plan Discharge Plan Patient Disposition: Released, Other Other facility: acute rehab - [facility] Under care of provider: Dr. Mccullough Provider Discharge Comment: You were admitted to the hospital with a probable stroke. MRI was negative, but symptoms are highly suggestive of stroke. You were started on medications to reduce risk of subsequent strokes in the future. You also had a racing heart and were started on medications for this as well. Finally, you had a seizure and were started on seizure medications. You should follow up with a neurologist as well. Discharge orders & Medications Discharge Orders: Discharge (Order); Ordered 06/07/21 Ordered By: Juan Gardiner Prescriptions: New aspirin 81 mg Tablet,Delayed Release (Dr/Ec) 81 mg PO DAILY 30 Days Qty: 30 0RF atorvastatin 80 mg tablet 80 mg PO BEDTIME 30 Days Qty: 30 0RF levetiracetam 250 mg Tablet 500 mg PO BID Qty: 60 0RF hydrocortisone 1 % Cream 1 applic topical BID Qty: 5 0RF metoprolol succinate 25 mg Tablet Extended Release 24 Hr 25 mg PO DAILY Qty: 30 0RF Follow up/Referrals: Richie Whipple MD [Primary Care Provider] - Rosey Dennison MD [Non-Staff] - (history of brain ca s/p surgery, now with new seizure) Diet/Activity/Treatments Diet: Diet as Tolerated Liquid consistency: Normal/Thin Food texture: Regular Activity: As tolerated Special Rehabilitation Services Rehab type: Physical therapy, Occupational therapy and Speech therapy Discharge Data Primary Care Provider: Richie Whipple Quality Stroke Contraindication Not Initiating IV-Tpa: Contraindicated Symptom Onset Unknown: Yes VTE Deep Vein Thrombosis/Pulmonary Embolism Present on Admission: No
[2021-06-08] MEDS: CLOPIDOGREL 75 MG TABLET PO (09:17)
[2021-06-08] MEDS: ASPIRIN EC 81 MG TABLET PO (09:17)
[2021-06-08] MEDS: ENOXAPARIN 40 MG/0.4 ML SYRINGE SUBCUT (09:17)
[2021-06-08] MEDS: levETIRAcetam 250 MG TABLET 500 MG PO (09:17)
[2021-06-08 09:18] VITALS: BP 116/75
[2021-06-08] MEDS: METOPROLOL ER 25 MG TABLET PO (09:18)
[2021-06-08] MEDS: HYDROCORTISONE 1% CREAM 28 GM 1 APPLIC TOP (09:19)
--- NOTE | 2021-06-08 09:22 | CM.DPC ---
DCP Discharge to Acute Rehab Per MD, pt remains medically stable to discharge to Acute Inpt Rehab today and completed d/c summary and orders. SW confirmed with RN about d/c timeframe for today and RN kindly agreed to get updated COVID swab. BERHANE spoke to Ino at [facility] [place] [facility] and he confirms they are able to accept pt today but request admit time be pushed from around 1300 to around 1400. BERHANE faxed updated COVID neg swab, labs and vitals, d/c summary, med list, PT notes to [facility] [place] Acute rehab to review. BERHANE called pt's spouse and updated on the change of admission time to 1400 today and she remains agreeable to provide transport and will be to the hospital by [id number]. Plan: Patient to d/c to [facility] Acute In[facility] Rehab today via spouse POV around 1330 for ongoing rehab before safe return home. NARCISO Oconnor
[2021-06-08 09:25] LABS: COVID19 -Nasal RAPID Negative (Negative)
[2021-06-08 10:16] VITALS: PULSE 72
--- NOTE | 2021-06-08 12:58 | PC.NURSE ---
Addendum entered by Ekta Troncoso R.N. 06/08/21 13:41: report called to acute rehab and discharged at this time Original Note: pt prepared for discharge [place] [facility] remains alert and oriented and requires just min assist - balance is still an issue and he requires sba as well as use of walker - iv removed as well as tele - lungs diminished but clear ans speech clear- able to tolerate diet and thin liquids without cough or obvious signs of aspiration- to transport
== END 2021-06-08 13:45 | DRG 92 ==
LOC: ED 21:11 → AC 06-02 09:34 → ICU 06-06 09:26
PROVIDERS: Internal Medicine; Admitting Provider Nurse Practitioner Family; Emergency Provider Emergency Medicine; Family Provider Family Medicine; PCP Family Medicine; Referring Provider Emergency Medicine; Visit Provider Nurse Practitioner Family
DX: R47.81 Slurred speech (principal); G93.49 Other encephalopathy; I47.1 Supraventricular tachycardia; R29.810 Facial weakness; R27.0 Ataxia, unspecified; R50.9 Fever, unspecified; R56.9 Unspecified convulsions; I10 Essential (primary) hypertension; E78.5 Hyperlipidemia, unspecified; Z85.841 Personal history of malignant neoplasm of brain; Z86.73 Personal history of transient ischemic attack (TIA), and cerebral infarction without residual deficits; Z20.822 Contact with and (suspected) exposure to COVID-19
CPT/HCPCS: 36415; 70450; 70496; 70498; 70548; 70553; 71045; 80048; 80053; 80061; 80305; 80320; 81003; 81015; 82550; 82553; 82962; 83036; 83735; 84100; 84146; 84443; 84484; 85025; 85027; 85610; 85730; 87040; 87635; 92507; 92523; 92526; 92610; 93005; 93306; 94760; 94762; 97110; 97112; 97116; 97129; 97163; 97166; 97530; 97535; 99285; 99291; C9803; Q3014; A9579; J1650; J1953; J2060; Q9967

== ENCOUNTER → 2021-10-29 17:38 | Outpatient (CLI) | payer OTHER, SELFPAY ==
[2021-06-01 22:07] VITALS: BMI 25.5
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
== END ==
PROVIDERS: Family Provider Family Medicine; PCP Family Medicine; Referring Provider Nurse Practitioner Critical Care Medicine; Visit Provider Nurse Practitioner Critical Care Medicine
DX: M16.11 Unilateral primary osteoarthritis, right hip (principal); M25.551 Pain in right hip; M25.461 Effusion, right knee; Z96.642 Presence of left artificial hip joint
CPT/HCPCS: 73502; 73562; 73590

== ENCOUNTER → 2022-01-08 09:05 | Outpatient (CLI) | payer OTHER, SELFPAY ==
[2021-06-01 22:07] VITALS: BMI 25.5
[2022-01-08 10:40] LABS: Add Manual Diff / Slide Review NO; Basophils Absolute Auto 0 /uL (0-100); Basophils Percent Auto 0.7 % (0-2); Eosinophils Absolute Auto 100 /uL (0-450); Hematocrit 42.9 % (41-53); Lymphocytes Absolute Auto 1400 /uL (1100-4500); Mean Corpuscular Volume 85.8 fL (80-100); Monocytes Absolute Auto 400 /uL (0-900); Monocytes Percent Auto 8.9 % (3-14); Neutrophils Absolute Auto 3100 /uL (1500-7000); Neutrophils Percent Auto 61.4 % (50-75); Platelet Count 197 X10^3/uL (150-400); Red Cell Distribution Width 13.1 % (11.6-14.8)
[2022-01-08 11:17] LABS: HEMOLYSIS < 15 (0-50)
[2022-01-08 11:50] LABS: Prostate Specific Antigen Scrn 2.98 ng/mL (0.1-4.0)
[2022-01-08 11:57] LABS: Alanine Aminotransferase 28 IU/L (<50); Albumin 4.6 g/dL (3.5-5.0); Albumin Globulin Ratio 1.5 (1.0-2.8); Alkaline Phosphatase 45 U/L (38-126); Aspartate Aminotransferase 25 IU/L (17-59); BUN Creatinine Ratio 16.5 (6-22); Bilirubin Total 0.7 mg/dL (0.2-1.3); Blood Urea Nitrogen 15 mg/dL (9-20); Calcium 9.5 mg/dL (8.4-10.2); Carbon Dioxide 29 mmol/L (22-32); Chloride 100 mmol/L (98-107); Cholesterol 147 mg/dL (140-199); Estimated Glomerular Filt Rate > 60 mL/min (>60); Glucose 91 mg/dL (70-100); HDL Cholesterol 55 mg/dL (40-60); LDL Cholesterol Calculated 82 mg/dL (<100); Potassium 4.6 mmol/L (3.4-5.1); Sodium 140 mmol/L (137-145); Total Protein 7.6 g/dL (6.3-8.2); Triglycerides 52 mg/dL (35-150)
== END ==
PROVIDERS: Family Provider Family Medicine; PCP Family Medicine; Referring Provider Family Medicine; Visit Provider Family Medicine
DX: D49.6 Neoplasm of unspecified behavior of brain (principal); E78.5 Hyperlipidemia, unspecified; I63.9 Cerebral infarction, unspecified; N20.0 Calculus of kidney; Z12.5 Encounter for screening for malignant neoplasm of prostate
CPT/HCPCS: 36415; 80053; 80061; 85025; G0103

== ENCOUNTER → 2022-01-09 15:37 | Outpatient (CLI) | payer OTHER, SELFPAY ==
[2021-06-01 22:07] VITALS: BMI 25.5
[2022-01-09 18:20] LABS: Creatinine Urine Random 79.6 mg/dL
[2022-01-09 18:30] LABS: Microalbumin Urine Random < 0.6 mg/dL (0-1.6)
== END ==
PROVIDERS: Family Provider Family Medicine; PCP Family Medicine; Referring Provider Family Medicine; Visit Provider Family Medicine
DX: D49.6 Neoplasm of unspecified behavior of brain (principal); E78.5 Hyperlipidemia, unspecified; I63.9 Cerebral infarction, unspecified; N20.0 Calculus of kidney
CPT/HCPCS: 82043; 82570

== ENCOUNTER → 2022-02-16 13:41 | Outpatient (CLI) | payer OTHER, SELFPAY ==
[2021-06-01 22:07] VITALS: BMI 25.5
[2022-02-16 14:47] LABS: COVID19 -Nasal RAPID Negative (Negative)
--- NOTE | 2022-02-16 19:34 | DI.NM.S_ITS ---
DATE OF SERVICE: 02/16/2022 PROCEDURE PERFORMED: Attempted exercise treadmill stress test without imaging. ORDERING PROVIDER: Dr. Michael Alberts. INDICATIONS: The patient is a 56-year-old male with a recent neurological event and found to have ventricular and supraventricular tachyarrhythmias. FINDINGS: 1. The patient was able to exercise for only 25 seconds on a standard Ruben protocol, being stopped because of gait instability and concern for him falling. This study was terminated without adequate diagnostic information for interpretation. 2. He remained asymptomatic. 3. His resting ECG showed sinus rhythm with frequent PVCs, often in a trigeminal pattern and rarely in couplets. There were baseline nonspecific ST- segment abnormalities in the inferior leads. Stress electrocardiography was unable to be achieved. IMPRESSION: 1. Nondiagnostic exercise treadmill study due to gait instability preventing adequate cardiac stress 2. Frequent PVCs at rest, occasionally in a trigeminal pattern and rarely in couplets. Pardeep Ziegler - [place]/simba/omi doc#: [id number]/job#: [id number] dd: 02/16/2022 17:04:00 dt: 02/16/2022 19:02:00 DICTATING /COPIES TO: Jose Clements MD COPIES MNE: JORGE;
== END ==
PROVIDERS: Family Provider Family Medicine; PCP Family Medicine; Referring Provider Internal Medicine Cardiovascular Disease; Visit Provider Internal Medicine Cardiovascular Disease
DX: I47.1 Supraventricular tachycardia (principal); I47.20 Ventricular tachycardia, unspecified; R26.89 Other abnormalities of gait and mobility; E78.5 Hyperlipidemia, unspecified; Z20.822 Contact with and (suspected) exposure to COVID-19
CPT/HCPCS: 87635; 93017

== ENCOUNTER → 2023-01-28 14:56 | Outpatient (CLI) | payer OTHER, SELFPAY ==
[2021-06-01 22:07] VITALS: BMI 25.5
[2023-01-28 15:15] LABS: Add Manual Diff / Slide Review NO; Basophils Absolute Auto 100 /uL (0-100); Basophils Percent Auto 0.9 % (0-2); Eosinophils Absolute Auto 0 /uL (0-450); Eosinophils Percent Auto 0.7 % (2-4); Hematocrit 42.9 % (41-53); Hemoglobin 14.7 g/dL (13.5-17.5); Lymphocytes Absolute Auto 1200 /uL (1100-4500); Lymphocytes Percent Auto 19.4 % (25-40); Mean Corpuscular HGB Conc 34.4 % (30-36); Mean Corpuscular Hemoglobin 30.4 PG (26-34); Mean Corpuscular Volume 88.5 fL (80-100); Monocytes Absolute Auto 500 /uL (0-900); Monocytes Percent Auto 7.8 % (3-14); Neutrophils Absolute Auto 4300 /uL (1500-7000); Neutrophils Percent Auto 71.2 % (50-75); Platelet Count 218 X10^3/uL (150-400); Red Blood Cell Count 4.84 X10^6/uL (4.5-5.9); Red Cell Distribution Width 13.6 % (11.6-14.8); White Blood Cell Count 6.1 X10^3/uL (4.5-11.0)
[2023-01-28 15:36] LABS: Alanine Aminotransferase 29 IU/L (<50); Albumin 4.7 g/dL (3.5-5.0); Albumin Globulin Ratio 1.5 (1.0-2.8); Alkaline Phosphatase 43 U/L (38-126); Aspartate Aminotransferase 30 IU/L (17-59); BUN Creatinine Ratio 22.9 (6-22); Blood Urea Nitrogen 19 mg/dL (9-20); Calcium 9.2 mg/dL (8.4-10.2); Carbon Dioxide 28 mmol/L (22-32); Chloride 99 mmol/L (98-107); Cholesterol 131 mg/dL (140-199); Estimated Glomerular Filt Rate > 60 mL/min (>60); Globulin 3.1 g/dL (1.7-4.1); Glucose 96 mg/dL (70-100); HDL Cholesterol 51 mg/dL (40-60); HEMOLYSIS < 15 (0-50); LDL Cholesterol Calculated 71 mg/dL (<100); Potassium 4.1 mmol/L (3.4-5.1); Sodium 134 mmol/L (137-145); Total Protein 7.8 g/dL (6.3-8.2); Triglycerides 43 mg/dL (35-150)
[2023-01-28 16:04] LABS: Prostate Specific Antigen Scrn 3.38 ng/mL (0.1-4.0)
[2023-01-28 16:36] LABS: Creatinine Urine Random 61.8 mg/dL
[2023-01-28 17:18] LABS: Microalbumin Urine Random < 0.6 mg/dL (0-1.6)
== END ==
PROVIDERS: Family Provider Family Medicine; PCP Family Medicine; Referring Provider Family Medicine; Visit Provider Family Medicine
DX: Z00.00 Encounter for general adult medical examination without abnormal findings (principal); E78.5 Hyperlipidemia, unspecified; V19.9XXA Pedal cyclist (driver) (passenger) injured in unspecified traffic accident, initial encounter; R56.9 Unspecified convulsions; R29.898 Other symptoms and signs involving the musculoskeletal system; Z12.5 Encounter for screening for malignant neoplasm of prostate
CPT/HCPCS: 36415; 80053; 80061; 82043; 82570; 85025; G0103

== ENCOUNTER → 2023-06-15 08:41 | Outpatient (CLI) | payer OTHER, SELFPAY ==
[2021-06-01 22:07] VITALS: BMI 25.5
--- NOTE | 2023-06-15 08:46 | DI.RAD.S_ITS ---
PROCEDURE: FL KNEE INJECTION MR/CT RT INDICATIONS: HIP PAIN COMPARISON: None. TECHNIQUE: The indications, alternatives, benefits, risks, and complications of the procedure were explained to the patient. Written informed consent was obtained and placed in the chart. The knee was examined fluoroscopically, and a site chosen for knee joint injection. The skin was prepped and draped in a sterile fashion, and 1% Lidocaine infiltrated from the skin down to the articular surface. A hypodermic needle was then introduced into the joint and iodinated contrast media was instilled to confirm the intra-articular needle tip placement. This was followed by approximately 50 mL dilute solution of a gadolinium containing MR contrast agent. The needle was removed and a bandage was applied. An Evgeny wrap was then applied around the knee joint to keep the contrast from collecting in the suprapatellar recess. The patient experienced no complications throughout the procedure and left the fluoroscopic suite in no apparent distress. FINDINGS: Single fluoroscopic spot image demonstrates intra-articular location to injected iodinated contrast. IMPRESSION: Successful fluoroscopically guided administration of dilute Gadolinium solution into the knee joint for MR arthrogram. Dictated by: Kirit Gil M.D. on 06/15/2023 at 13:00 Approved by: Kirit Gil M.D. on 06/15/2023 at 13:01
--- NOTE | 2023-06-15 08:46 | DI.RAD.S_ITS ---
PROCEDURE: FL HIP INJECTION MR/CT RT INDICATIONS: HIP PAIN TECHNIQUE: The indications, alternatives, benefits, risks, and complications of the procedure were explained to the patient. Written informed consent was obtained and placed in the chart. The hip was examined fluoroscopically with the legs fixed in slight internal rotation, and a site for needle placement chosen for entry into the hip joint from an anterior approach. Care was taken to locate the common femoral artery and vein beforehand. The skin was prepped and draped in a sterile fashion, and 1% Lidocaine infiltrated from skin down to joint capsule. A spinal needle was inserted into the joint, and a small amount of iodinated contrast media injected to confirm intra-articular placement of the needle tip. This was followed by approximately 10 mL dilute solution of a gadolinium containing MR contrast agent. The needle was removed and a dressing was applied. The patient was given postprocedural instructions and sent to the MR suite for imaging. COMPARISON: None. FINDINGS: A single fluoroscopic spot image demonstrates intra-articular location of injected iodinated contrast. IMPRESSION: Successful fluoroscopically guided administration of dilute Gadolinium solution into the hip joint for MR arthrogram. Dictated by: Kirit Gil M.D. on 06/15/2023 at 13:00 Approved by: Kirit Gil M.D. on 06/15/2023 at 13:00
--- NOTE | 2023-06-15 08:47 | DI.MRI.S_ITS ---
PROCEDURE: MR KNEE RT W CON INDICATIONS: Right knee pain TECHNIQUE: After the administration of 50 mL of dilute intra-articular Gadolinium contrast, sagittal T1 spin echo with fat saturation and PD fast spin echo with fat saturation, coronal T1 spin echo with and without fat saturation, coronal T2 fast spin echo with fat saturation, axial PD fast spin echo with fat saturation through the knee. COMPARISON: [facility] [place], CR, XR KNEE 4+ VIEWS RIGHT, 08/05/2022, 15:18. [facility] [place]., MR, MR KNEE RIGHT WITHOUT CONTRAST, 11/26/2021, 10:26. FINDINGS: Image quality: Excellent. Menisci: The medial and lateral menisci demonstrate normal morphology and internal signal. The meniscal root ligaments appear intact. Cruciate ligaments: The anterior cruciate ligament is mildly thickened. The posterior cruciate ligament is intact. Medial structures: The medial collateral ligament appears intact. Visualized portions of the pes anserinus tendons appear normal. No abnormal bursal fluid. Lateral structures: The lateral collateral ligament, long and short heads of the biceps femoris tendon appear intact. The popliteus tendon is mildly thickened with intrasubstance T2 hyperintense signal extending to musculotendinous junction. Iliotibial band appears normal. Anterior structures: The quadriceps and patellar tendons appear intact. Patellar alignment is normal. No femoral trochlear dysplasia or ventral trochlear prominence. No edema in the infrapatellar fat pad. Bone and cartilage: No bone marrow contusions or fractures. The cartilage of the medial and lateral femorotibial compartments, as well as the patellofemoral compartment, appears normal in thickness. Joint space: No Zhou's cyst. Normal appearing synovial plicae are incidentally noted. No intra-articular bodies. IMPRESSION: 1. Mildly thickened ACL suggestive of low-grade ACL sprain. No ACL rupture. The PCL is intact. 2. No evidence of focal meniscal tear. 3. No marrow edema. No fracture or dislocation. Articulating cartilages are intact. No gross intra-articular loose bodies. 4. Tendinosis and low-grade partial-thickness tear involving popliteus tendon extending to musculotendinous junction. Dictated by: Ino Crane M.D. on 06/15/2023 at 13:42 Approved by: Ino Crane M.D. on 06/15/2023 at 15:29
--- NOTE | 2023-06-15 08:47 | DI.MRI.S_ITS ---
PROCEDURE: MR HIP RT W CON INDICATIONS: HIP PAIN TECHNIQUE: After the administration of 10 mL of dilute intra-articular Gadolinium contrast, coronal STIR of the bony pelvis; coronal and oblique axial T1 spin echo with fat saturation, axial T2 fast spin echo with fat saturation, sagittal T1 spin echo with and without fat saturation of the involved hip. COMPARISON: [facility] MR, MR HIP RIGHT WITHOUT CONTRAST, 12/16/2021, 11:34. FINDINGS: Image quality: Diagnostic. Susceptibility artifacts are noted from right femoral neck hardware. Bones and joints: Patient is status post prior right femoral neck fixation with multiple surgical screws in place. There is also prior left total hip arthroplasty. Susceptibility artifacts are noted from surgical hardware. No evidence of acute fracture or dislocation. No gross marrow edema or suspicious bony lesions. Mild right hip joint osteoarthritic changes are seen with superior joint space narrowing and subchondral sclerosis. No avascular necrosis of the femoral head. Degenerative disc disease in visualized lower lumbar spine is seen. Tendons and ligaments: The gluteus medius and minimus tendons appear intact, without associated muscle atrophy. The nearby proximal iliotibial band also appears intact. The iliopsoas tendon appears intact, without adjacent bursal fluid collections or evidence for impingement syndrome. The origin of the hamstring tendon is intact at the ischial tuberosity, as well as the associated sacrotuberous ligament. The straight and reflected heads of the rectus femoris muscle origin appear intact. Labrum and cartilage: there is subtle fraying No of superior anterior labrum with questionable contrast extension at 12 to 1 o'clock position suggestive of very subtle superior anterior right hip labral tear . No paralabral cysts. Soft tissues: Visualized muscles demonstrate normal bulk and internal signal. Quadratus femoris muscle demonstrates no internal edema to suggest ischiofemoral impingement. The proximal sciatic neurovascular bundle appears normal adjacent to the hamstring tendons. No free pelvic fluid. Bladder wall thickness is normal. Genitourinary structures and bowel loops appear normal where visualized. IMPRESSION: 1. Prior left total hip arthroplasty and fixation of right femoral neck with postsurgical changes and susceptibility artifacts from surgical hardware. No gross marrow edema. No acute fracture or dislocation. Mild right hip joint osteoarthritis. No evidence of avascular necrosis of right femoral head. Degenerative disc disease in visualized lower lumbar spine. 2. No gross right hip muscle or tendon signal abnormalities. 3. Suggestion of very subtle superior anterior right hip labral tear at 12 to 1 o'clock position. Dictated by: Ino Crane M.D. on 06/15/2023 at 11:20 Approved by: Ino Crane M.D. on 06/15/2023 at 11:29
[2023-06-15] MEDS: LIDOCAINE 1% 20 ML INJ (13:34)
[2023-06-15] MEDS: SODIUM CHLORIDE 0.9 % 20 ML VIAL IV ×2 (13:34)
== END ==
PROVIDERS: Family Provider Family Medicine; PCP Family Medicine; Referring Provider Orthopaedic Surgery Sports Medicine; Visit Provider Orthopaedic Surgery Sports Medicine
DX: M16.11 Unilateral primary osteoarthritis, right hip (principal); S76.811A Strain of other specified muscles, fascia and tendons at thigh level, right thigh, initial encounter; M51.36 Other intervertebral disc degeneration, lumbar region; M25.561 Pain in right knee; M25.551 Pain in right hip; Z96.642 Presence of left artificial hip joint
CPT/HCPCS: 27369; 27093; 27370; 73525; 73580; 73722; A9579; Q9967

== ENCOUNTER → 2023-10-05 16:31 | Outpatient (CLI) | payer OTHER, SELFPAY ==
[2021-06-01 22:07] VITALS: BMI 25.5
--- NOTE | 2023-10-05 16:32 | DI.RAD.S_ITS ---
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 COMPARISON: None. FINDINGS: Bones: No fractures or dislocations. No suspicious bony lesions. Soft tissues: No suspicious soft tissue calcifications. Soft tissue abnormality along the base of the 2nd digit. IMPRESSION: Soft tissue abnormality along the base of the 2nd digit. No underlying evidence of osteomyelitis. Dictated by: Eliot Red M.D. on 10/05/2023 at 18:38 Approved by: Eliot Red M.D. on 10/05/2023 at 18:38
== END ==
PROVIDERS: Family Provider Family Medicine; PCP Family Medicine; Referring Provider Physician Assistant; Visit Provider Physician Assistant
DX: S61.209A Unspecified open wound of unspecified finger without damage to nail, initial encounter (principal)
CPT/HCPCS: 73140

== ENCOUNTER → 2024-03-11 10:30 | Outpatient (CLI) | payer OTHER, SELFPAY ==
[2021-06-01 22:07] VITALS: BMI 25.5
[2024-03-11 11:15] LABS: Add Manual Diff / Slide Review NO; Basophils Absolute Auto 0 /uL (0-100); Basophils Percent Auto 0.9 % (0-2); Eosinophils Absolute Auto 100 /uL (0-450); Eosinophils Percent Auto 2.6 % (2-4); Hematocrit 45.9 % (41-53); Hemoglobin 15.8 g/dL (13.5-17.5); Lymphocytes Absolute Auto 1300 /uL (1100-4500); Mean Corpuscular HGB Conc 34.4 % (30-36); Mean Corpuscular Hemoglobin 30.4 PG (26-34); Mean Corpuscular Volume 88.3 fL (80-100); Monocytes Absolute Auto 400 /uL (0-900); Monocytes Percent Auto 7.9 % (3-14); Neutrophils Absolute Auto 3100 /uL (1500-7000); Neutrophils Percent Auto 61.6 % (50-75); Platelet Count 204 X10^3/uL (150-400); Red Cell Distribution Width 13.7 % (11.6-14.8)
[2024-03-11 11:29] LABS: Alanine Aminotransferase 34 IU/L (<50); Albumin 4.5 g/dL (3.5-5.0); Albumin Globulin Ratio 1.7 (1.0-2.8); Alkaline Phosphatase 54 U/L (38-126); Aspartate Aminotransferase 32 IU/L (17-59); Bilirubin Total 0.7 mg/dL (0.2-1.3); Blood Urea Nitrogen 23 mg/dL (9-20); Calcium 9.5 mg/dL (8.4-10.2); Carbon Dioxide 26 mmol/L (22-32); Chloride 106 mmol/L (98-107); Cholesterol 140 mg/dL (140-199); Estimated Glomerular Filt Rate > 60 mL/min (>60); Globulin 2.6 g/dL (1.7-4.1); Glucose 91 mg/dL (70-100); HDL Cholesterol 61 mg/dL (40-60); HEMOLYSIS < 15 (0-50); LDL Cholesterol Calculated 67 mg/dL (<100); Potassium 4.5 mmol/L (3.4-5.1); Sodium 140 mmol/L (137-145); Total Protein 7.1 g/dL (6.3-8.2); Triglycerides 62 mg/dL (35-150)
[2024-03-11 11:59] LABS: Prostate Specific Antigen Scrn 3.22 ng/mL (0.1-4.0)
[2024-03-11 12:28] LABS: Creatinine Urine Random 162.03 mg/dL
[2024-03-11 12:33] LABS: Microalbumin Urine Random < 0.6 mg/dL (0-1.6)
[2024-03-12 08:07] LABS: Apolipoprotein B 62 mg/dL (<90)
== END ==
PROVIDERS: Family Provider Family Medicine; PCP Family Medicine; Referring Provider Family Medicine; Visit Provider Family Medicine
DX: Z00.00 Encounter for general adult medical examination without abnormal findings (principal); Z12.5 Encounter for screening for malignant neoplasm of prostate; E78.5 Hyperlipidemia, unspecified; R56.9 Unspecified convulsions
CPT/HCPCS: 36415; 80053; 80061; 82043; 82172; 82570; 85025; G0103

== ENCOUNTER → 2025-03-12 12:13 | Outpatient (CLI) | payer OTHER, SELFPAY ==
[2021-06-01 22:07] VITALS: BMI 25.5
[2025-03-12 13:36] LABS: Add Manual Diff / Slide Review NO; Hematocrit 43.6 % (41-53); Hemoglobin 15.0 g/dL (13.5-17.5); Lymphocytes Absolute Auto 1100 /uL (1100-4500); Mean Corpuscular HGB Conc 34.3 % (30-36); Mean Corpuscular Hemoglobin 30.1 PG (26-34); Mean Corpuscular Volume 87.6 fL (80-100); Platelet Count 214 X10^3/uL (150-400)
[2025-03-12 13:48] LABS: Alanine Aminotransferase 31 IU/L (<50); Albumin 4.8 g/dL (3.5-5.0); Albumin Globulin Ratio 1.7 (1.0-2.8); Alkaline Phosphatase 65 U/L (38-126); Blood Urea Nitrogen 28 mg/dL (9-20); Calcium 8.8 mg/dL (8.4-10.2); Carbon Dioxide 26 mmol/L (22-32); Chloride 108 mmol/L (98-107); Cholesterol 141 mg/dL (140-199); Estimated Glomerular Filt Rate > 60 mL/min (>60); Globulin 2.9 g/dL (1.7-4.1); Glucose 105 mg/dL (70-99); HDL Cholesterol 58 mg/dL (40-60); HEMOLYSIS < 15 (0-50); Potassium 3.9 mmol/L (3.4-5.1); Sodium 143 mmol/L (137-145); Total Protein 7.7 g/dL (6.3-8.2); Triglycerides 59 mg/dL (35-150)
[2025-03-12 14:20] LABS: TSH w/ Reflex to FT4 3.34 uIU/mL (0.47-4.68)
[2025-03-12 15:38] LABS: Microalbumi Creatinin Ratio Ur 2.0 ug/mg CR (<30)
== END ==
PROVIDERS: PCP Family Medicine; Referring Provider Family Medicine; Visit Provider Family Medicine
DX: Z00.00 Encounter for general adult medical examination without abnormal findings (principal); E78.5 Hyperlipidemia, unspecified; R56.9 Unspecified convulsions; Z98.890 Other specified postprocedural states; I49.3 Ventricular premature depolarization; Z12.5 Encounter for screening for malignant neoplasm of prostate; V19.9XXS Pedal cyclist (driver) (passenger) injured in unspecified traffic accident, sequela
CPT/HCPCS: 36415; 80053; 80061; 82043; 82570; 84443; 85025; G0103